=== PATIENT | male | born 1965 | race Caucasian/White ===

== ENCOUNTER 2022-11-07 06:32 | Outpatient (OUT) | payer OTHER, SELFPAY ==
[2022-11-10 19:07] LABS: Lacosamide 12.9 ug/mL (5.0-10.0)
== END 2022-11-07 06:33 | disposition home or self-care (01) ==
DX: G40.219 Localization-related (focal) (partial) symptomatic epilepsy and epileptic syndromes with complex partial seizures, intractable, without status epilepticus (principal)
CPT/HCPCS: 36415; 80235

== ENCOUNTER 2023-02-05 06:44 | Outpatient (OUT) | payer OTHER, SELFPAY ==
[2023-02-05 06:55] LABS: Basophils Absolute Auto 0.1 10^3/uL (0.0-0.1); Basophils Percent Auto 0.6 % (0.2-2.0); Eosinophils Absolute Auto 0.3 10^3/uL (0.0-0.7); Eosinophils Percent Auto 2.1 % (0.9-7.0); Hematocrit 44.7 % (42.0-54.0); Hemoglobin 14.5 g/dL (14.0-18.0); Immature Granulocytes Abs Auto 0.31 10^3/uL (0.00-0.03); Immature Granulocytes Pct Auto 2.5 % (0.0-0.5); Lymphocytes Absolute Auto 4.7 10^3/uL (1.2-3.8); Lymphocytes Percent Auto 37.9 % (20.5-60.0); Mean Corpuscular HGB Conc 32.4 g/dL (29.9-35.2); Mean Corpuscular Hemoglobin 30.9 pg (25.9-34.0); Mean Corpuscular Volume 95.1 fL (80.0-94.0); Mean Platelet Volume 8.9 fL (9.5-13.5); Monocytes Absolute Auto 1.2 10^3/uL (0.3-0.8); Monocytes Percent Auto 9.6 % (1.7-12.0); Neutrophils Absolute Auto 5.9 10^3/uL (1.4-6.5); Neutrophils Percent Auto 47.3 % (43.0-75.0); Platelet Count 272 10^3/uL (150-450); Red Cell Distribution Width 13.1 % (11.0-15.0); White Blood Count 12.5 10^3/uL (4.0-11.0)
[2023-02-05 07:52] LABS: Mono Screen NEGATIVE (NEGATIVE)
[2023-02-05 07:58] LABS: BUN Creatinine Ratio 23.5; Calcium 8.7 mg/dL (8.5-10.1); Carbon Dioxide 32.4 mmol/L (21.0-32.0); Chloride 102 mmol/L (98-107); Estimated GFR (African America >60 (>=60); Estimated GFR (Non-African Ame >60 (>=60); Glucose 91 mg/dL (74-106); Potassium 3.4 mmol/L (3.5-5.1); Sodium 142 mmol/L (136-145)
[2023-02-05 08:36] LABS: Thyroid Stimulating Hormone 2.236 uIU/mL (0.358-3.740)
== END 2023-02-05 06:45 | disposition home or self-care (01) ==
LOC: LAB 06:44
PROVIDERS: PCP Family Medicine; Visit Provider Family Medicine
DX: R53.83 Other fatigue (principal); I10 Essential (primary) hypertension
CPT/HCPCS: 36415; 80048; 84443; 85025; 86308

== ENCOUNTER 2023-10-16 09:23 | Emergency (ER) | payer OTHER, SELFPAY ==
[2023-10-16 09:28] VITALS: BP 161/90; PULSE 60; TEMP 36.6; O2SAT 97; BMI 30.4
--- NOTE | 2023-10-16 09:38 | CT_ITS ---
[address] [address] Patient Name: PARAMJIT ROMEO MRN: [id number] date: 1965 Sex: M Assigned Patient Location: ER Current Patient Location: [facility] Accession/Order Number: [id number] Exam Date: 10/16/2023 09:45 Report Date: 10/16/2023 10:14 At the request of: MONICA LANCASTER Procedure: CT lumbar spine wo con EXAMINATION: CT lumbar spine wo con HISTORY: Trauma ; fell off ladder 2 days ago COMPARISON: XR lumbar spine 05/18/2013 TECHNIQUE: Axial, Coronal, and Sagittal images were created without IV contrast. Dose reduction techniques were achieved by using automated exposure control and/or adjustment of mA and/or kV according to patient size and/or use of iterative reconstruction technique. FINDINGS: VERTEBRAL BODIES: Small anterior superior endplate corner fractures and slight irregularity of the superior endplate of T12, L2, and L3. FACET JOINTS: No disruption or abnormal widening. DISCS: Mild diffuse disc bulging at L1-2, L3 on 4. Moderate diffuse disc bulge L4-5 and L5-S1 resulting in moderate or greater foramen narrowing. CENTRAL CANAL: No evidence of hemorrhage. PARASPINAL AREA: No visible mass. CT/CT lumbar spine wo con IMPRESSION: 1. Suspect mild acute superior endplate compression fractures and nondisplaced anterior superior corner fractures involving T12, L2, and L3. Consider MRI for further evaluation. 2. Moderate degenerative disc disease of lower lumbar spine with multilevel moderate foramen narrowing and mild central canal narrowing. Electronically authenticated by: ROZ QUINTANILLA Date: 10/16/2023 10:14
--- NOTE | 2023-10-16 10:02 | ED.BACK1 ---
HPI HPI - Back Pain/Injury General Chief Complaint: Back Pain/Injury Stated Complaint: LOWER BACK PAIN/ FALL Time Seen by Provider: 10/16/23 09:38 Source: patient and family Mode of arrival: walk-in History of Present Illness HPI Narrative: This patient is here in the emergency room to be evaluated for back pain. He states he fell off a ladder 2 days ago. There is no loss of consciousness and that information can be confirmed. He did not hit his head or neck. He tried to tough it out but the pain is not getting better with IV fluid. He has not had previous back surgery or severe back problems. 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 He does not have any loss of bowel or bladder function. He does not have any radiation tingling numbness or weakness to the extremities. He is not any blood in his urine. He does not have any abdominal pain. The pain is in the mid lumbar area but it hurts when he takes a deep breath. He does not have any pain over his ribs or sternum area. No other injury to his upper or lower limbs. His cognition and mental status has been normal according to his . Related Data Home Medications ?Medication ?Instructions ?Recorded ?Confirmed clobazam 10 mg tablet mg 10/16/23 ibuprofen 800 mg tablet mg 10/16/23 lacosamide 150 mg tablet mg 10/16/23 lisinopril 20 tab 10/16/23 mg-hydrochlorothiazide 12.5 mg tablet montelukast 10 mg tablet mg 10/16/23 sertraline 50 mg tablet mg 10/16/23 Allergies Allergy/AdvReac Type Severity Reaction Status Date / Time Penicillins AdvReac Severe Hives Verified 10/16/23 09:31 Opioid HPI Opioid Management Most Recent Opioid Data: No Data to Display Exam Narrative Exam Narrative: Awake alert sitting on side the bed propping and bracing himself. Appears to be uncomfortable. Examination of the back there is no abrasions contusions or apparent injury. His pain is in the midline of the L2-L4 area. There is no ecchymosis or hematomas noted. His lungs were clear with no wheeze rales or rhonchi. There is no tenderness to palpation of the rib area. Head and neck examination shows no evidence of trauma or injury. There is no restriction of motion. Neurological examination shows good strength in the lower limbs with no restriction of motion. There is no sensory loss by history. Constitutional Vital Signs, click to edit/add: Last Vital Signs Temp 98 F 10/16/23 09:28 Pulse 60 10/16/23 09:28 Resp 18 10/16/23 09:28 BP 161/90 H 10/16/23 09:28 Pulse Ox 97 10/16/23 09:28 Course Vital Signs Vital signs: Vital Signs Temperature 98 F 10/16/23 09:28 Pulse Rate 60 10/16/23 09:28 Respiratory Rate 18 10/16/23 09:28 Blood Pressure 161/90 H 10/16/23 09:28 Pulse Oximetry 97 10/16/23 09:28 Temperature 98 F 10/16/23 09:28 Pulse Rate 60 10/16/23 09:28 Respiratory Rate 18 10/16/23 09:28 Blood Pressure 161/90 H 10/16/23 09:28 Pulse Oximetry 97 10/16/23 09:28 MDM - Back Pain/Injury MDM Narrative Medical decision making narrative: This patient's CT scan disclosed a small endplate fractures of T12 L2 and L3. His neurological examination is normal. I have reached out to his primary care doctor, Dr. Cook, he will make referral to orthopedic spine surgeon here in the community. He will be given analgesics. He will be excused from work for 1 week. He was told to use laxatives for constipation that may ensue. Discharge Plan Discharge Stand Alone Forms: Portal Instructions Chief Complaint: Back Pain/Injury Clinical Impression: Fracture of lumbar spine Patient Disposition: Home, Self-Care Time of Disposition Decision: 10:54 Prescriptions / Home Meds: No Action lisinopril-hydrochlorothiazide 20-12.5 mg tablet ibuprofen 800 mg tablet montelukast 10 mg tablet sertraline 50 mg tablet lacosamide 150 mg tablet clobazam 10 mg tablet Print Language: Jamaican Additional Instructions: Percocet/Toradol/follow-up with Dr. Hammond, off work next week Referrals: Yessenia Brannon MD [Primary Care Provider] - 1 week
== END 2023-10-16 11:04 | disposition home or self-care (01) ==
PROVIDERS: Emergency Provider Emergency Medicine Emergency Medical Services; PCP Family Medicine
DX: S22.089A Unspecified fracture of T11-T12 vertebra, initial encounter for closed fracture (principal); S32.029A Unspecified fracture of second lumbar vertebra, initial encounter for closed fracture; S32.039A Unspecified fracture of third lumbar vertebra, initial encounter for closed fracture; W11.XXXA Fall on and from ladder, initial encounter
CPT/HCPCS: 72131; 99284

== ENCOUNTER 2023-10-29 07:24 | Outpatient (OUT) | payer OTHER, SELFPAY ==
--- OUTSIDE RECORDS SUMMARY | 2023-10-29 07:28 | XMS_ITS | CCD ---
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 Role Phone House Sr., Charles Lynne Primary Care Provider Rosemarie Quintero Unavailable Víctor Selby Unavailable House Sr., Charles Lynne Primary Care Provider JAMMIE, DR HUGHES Primary Care Unavailable MISC, DR LUU Attending Unavailable MISC, DR LUU Consulting Unavailable MISC, DR LUU Admitting Unavailable HOUSE, DR HUGHES Primary Care Unavailable MISC, DR LUU Admitting Unavailable MISC, DR LUU Attending Unavailable MISC, DR LUU Consulting Unavailable HOUSE, DR HUGHES Primary Care Unavailable MISC, DR LUU Attending Unavailable MISC, DR LUU Consulting Unavailable MISC, DR LUU Admitting Unavailable HOUSE, DR HUGHES Primary Care Unavailable PAY, DR GUZMAN Consulting Unavailable PAY, DR GUZMAN Admitting Unavailable PAY, DR GUZMAN Attending Unavailable YAROSH, RENARD Consulting Unavailable HOUSE, DR HUGHES Admitting Unavailable HOUSE, DR HUGHES Attending Unavailable HOUSE, DR HUGHES Primary Care Unavailable HOUSE, DR HUGHES Primary Care Unavailable MISC, DR LUU Attending Unavailable MISC, DR LUU Consulting Unavailable MISC, DR LUU Admitting Unavailable House Sr., Charles Lynne Primary Care Provider Víctor Anne Unavailable DO Charles Agudelo Primary Care Provider MD Víctor Anne Attending Provider NON STAFF Attending Provider Unavailable House Sr., Charles Lynne Primary Care Provider DO Charles Agudelo Primary Care Provider [phone] MD Víctor Anne Attending Provider CASS Alatorre Attending Provider DO Charles Agudelo Primary Care Provider [phone] CASS Alatorre Attending Provider Olesya Davis Unavailable Yessenia Brannon Unavailable House Sr., Charles LIPSCOMB Primary Care Prov ider MD Víctor Anne Attending Provider MD Yessenia Brannon Primary Care Provider HOUSE SR, P Primary Care Unavailable FESLER, LYNDA Referring Unavailable ZAK MERCADO Attending Unavailable HOUSE SR, P Primary Care Unavailable FESLER, LYNDA Referring Unavailable TORCASICHAU Lizama Attending Unavailable HOUSE SR, P Primary Care Unavailable HOUSE SR, P Primary Care Unavailable FESKARINA, LYNDA Referring Unavailable LYNDA HUFF Attending Unavailable HOUSE SR, P Primary Care Unavailable CHAU TAVERAS Attending Unavailable FESLERLYNDA Attending Unavailable HOUSE SR, P Primary Care Unavailable SELF Referring Unavailable HOUSE SR, P Primary Care Unavailable FESLER, LYNDA Referring Unavailable EDUARDOCACHAU COX Attending Unavailable FESLERLYNDA Attending Unavailable HOUSE SR, P Primary Care Unavailable MD Yessenia Branonn Primary Care Provider MD Víctor Anne Attending Provider [phone] MD Yessenia Brannon Primary Care Provider MD Víctor Anne Attending Provider [phone] Víctor Anne Attending Unavailable Yessenia Brannon Primary Care Unavailable Omid, Víctor Admitting Unavailable Omid, Víctor Attending Unavailable Yessenia Brannon Primary Care Unavailable Oleyina, Víctor Admitting Unavailable Yessenia Brannon Primary Care Unavailable Omid, Víctor Admitting Unavailable Omid, Víctor Attending Unavailable Cristy Alatorre Admitting Unavailable Cristy Alatorre Attending Unavailable Jammie, Primary Care Unavailable MINNA CONTRERAS Attending Unavailable MINNA CONTRERAS Referring Unavailable Allergies Allergy Classification Reported Allergen(s) Allergy Type Date of Onset Reaction(s) Facility Penicillins (antibiotic) (2 sources) Penicillin G Benzathine Drug Allergy 4 Unknown Reaction, [facility] (20 sources) Seasonal allergy; Translations: [SEASONAL ALLERGIES] Allergy to substance 9 Cough [facility] (14 sources) Penicillins; Translations: [PENICILLINS] Drug Allergy 2 Unknown [facility] (12 sources) Penicillin; Translations: [penicillin] Drug Allergy hives [facility] (20 sources) Penicillin G Benzathine; Translations: [penicillin G benzathine] Drug allergy 4 Unknown, Unknown Reaction [facility] (20 sources) Penicillins Drug Allergy 2 Unknown [facility] (1 source) Penicillins Drug allergy (disorder) 4 [facility] Repository Medications Current Medications Medication Drug Class(es) Dates Sig (Normalized) Sig (Original) [id number] 200 actuat albuterol 0.09 mg/actuat metered dose inhaler (2 sources) beta2-Adrenergic Agonist Start: 06-24-2021 Albuterol Sulfate Active 2 INH INHALATION Q6H June 23, 2021 11:00pm administer with spacer azithromycin 250 mg oral tablet (2 sources) Macrolide Antimicrobial Start: 02-11-2023 Azithromycin 250 MG as directed Orally 2 tabs po today, then 1 tab daily x 4 more days for Jan, Active Start: 01-29-2023 Azithromycin 2 50 MG Take 2 tablets on first day then 1 tablet daily for 4 days Orally as directed for Dec, Active cloBAZam 10 mg oral tablet (20 sources) Benzodiazepine Start: 10-03-2021 End: 11-07-2023 take 10 mg by mouth once daily at bedtime Clobazam Active 10 MG PO Daily at bedtime January 28, 2022 1:00am Start: 07-20-2021 End: 07-20-2025 take 0.5 tablet by mouth twice daily cloBAZam (ONFI) 10 mg tab tablet Indications: Nonintractable epilepsy with status epilepticus, unspecified epilepsy type (HCC) 0.5 tablets by ORAL/FEEDING TUBE route twice daily. 30 tablet 5 07/20/2021 10/03/2021 Discontinued Comment on above: 0.5 tablets by ORAL/ FEEDING TUBE route twice daily. Take 1 tablet by juan th daily at bedtime for 180 days. dextromethorphan hydrobromide 1.5 mg/ml / pyrilamine maleate 1.5 mg/ml oral solution (1 source) Uncompetitive C-rgmgdv-I-aspartate Receptor Antagonist, Sigma-1 Agonist Start: 03-13-19 take 20 mL by mouth every six hours [place] DM 7.5-7.5 MG/5ML 20 ml Orally every 6 hours for 2 days Mar, Active fluticasone propionate 0.05 mg/actuat metered dose nasal spray (3 sources) Corticosteroid Start: 03-13-19 take 1 spray(s) nasal route twice daily Fluticasone Propionate 50 MCG/ACT 1 spray in each nostril Nasally Twice a day for 14 days Mar, Active Flonase Sensimis t 27.5 MCG/SPRAY 2 sprays (1 spray in each nostril) Nasally Once a day for 30 days Active lacosamide 150 mg oral tablet (20 sources) Anti-epileptic Agent Start: 07-07-2022 End: 11-07-2023 take 2 tablets by mouth twice daily lacosamide (VIMPAT) 150 mg tab Indications: Nonintractable epilepsy with status epilepticus, unspecified epilepsy type (HCC) Take 2 tablets by mouth two times a day for 180 days. 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 270 tablet 1 02/27/2022 08/26/2022 Active Start: 01-30-2022 End: 07-29-2022 take 3 tablets by mouth twice daily lacosamide (VIMPAT) 100 mg tab Indications: Nonintractable epilepsy with status epilepticus, unspecified epilepsy type (HCC) Take 3 tablets by mouth twice daily for 180 days. 180 tablet 5 01/30/2022 07/29/2022 Active Start: 06-05-2021 End: 03-05-2022 VIMPAT 200 mg Indications: Nonintractable epilepsy with status epilepticus, unspecified epilepsy type (HCC) TAKE 1 AND 1/2 TABLETS BY MOUTH TWICE A DAY 270 tablet 1 09/06/2021 01/30/2022 Discontinued Start: 04-24-2018 End: 06-24-2021 take 1 tablet by mouth twice daily Lacosamide (Vimpat) 100 mg tablet Active 300 MG PO Twice daily June 24, 2021 2:09pm Start: 04-22-2018 End: 04-24-2018 take 1 tablet by mouth twice daily Lacosamide (Vimpat) 50 mg tablet Discontinued 50 MG PO Twice daily April 22, 2018 1:00am April 24, 2018 12:22pm take 1 tablet by juan every twelve hours Lacosamide 200 MG 1 tablet Orally Twice a day Active Comment on above: TAKE 1 AND 1/2 TABLE TS BY MOUTH TWICE A DAY Take 3 tablets by mo ut twice daily for 180 days. Take 1.5 tablets by mouth twice daily for 180 days. Take 2 tablets by mo ut twice daily for 180 days. Take 2 tablets by mo ut two times a day for 180 days. methylPREDNISolone 4 mg oral tablet (3 sources) Corticosteroid Start: 023 Medrol 4 MG as directed Orally as directed for 6 days Dec, Active montelukast 10 mg oral tablet (20 sources) Leukotriene Receptor Antagonist Start: 024 take 1 tablet by mouth once daily Montelukast Active 0 .ROUTE .COMPLEX October 05, 2023 9:41am take 1 tablet by mouth once daily Start: 2017 End: 10-05-2023 take 1 tablet by mouth once daily Montelukast (Singulair) 10 mg tablet Discontinued 10 MG PO Daily July 15, 2023 8:37am October 05, 2023 9:42am Comment on above: Take 10 mg by mouth once daily. omeprazole 40 mg delayed release oral capsule (2 sources) Proton Pump Inhibitor take 1 capsule by mouth once daily Omeprazole 40 MG 1 capsule 30 minutes before morning meal Orally Once a day for 15 days Active paxlovid (300/100) 20 x 150 mg & 10 x 100mg tablet therapy pack (1 source) Paxlovid (300/10 0) 20 x 150 MG & 10 x 100MG as directed Orally daily for 5 days Active sertraline 50 mg oral tablet (17 sources) Serotonin Reuptake Inhibitor Start: 08-09-2023 End: 10-02-2023 take 50 mg by mouth once daily Sertraline Active 50 MG PO Daily October 02, 2023 11:14am Start: 01-01-2023 End: 06-30-2023 take 1 tablet by mouth once daily sertraline (ZOLOFT) 50 mg tablet Take 1 tablet by mouth once daily. 90 tablet 0 04/01/2023 06/30/2023 Active Start: 09-15-2022 End: 12-14-2022 take 1 tablet by mouth once daily sertraline (ZOLOFT) 50 mg tablet Take 1 tablet by mouth once daily. 90 tablet 0 09/15/2022 12/14/2022 Active Comment on above: Take 1 tablet by juan once daily. Completed/Discontinued Medications Medication Drug Class(es) Dates Sig (Normalized) Sig (Original) cholecalciferol 0.025 mg oral tablet (14 sources) Vitamin D Start: 05-17-2018 End: 06-24-2021 take 1 tablet by mouth once daily Cholecalciferol (Vitamin D3) (Vitamin D3) 1,000 unit Tablet Discontinued 1000 UNIT PO Daily May 17, 2018 12:00am June 24, 2021 2:09pm ciprofloxacin 500 mg oral tablet (4 sources) Quinolone Antimicrobial Start: 02-11-2022 take 1 tablet by mouth every twelve hours Cipro 500 MG 1 tablet Orally every 12 hrs for 2 days Jan, Not-Taking clindamycin 300 mg oral capsule (14 sources) Lincosamide Antibacterial Start: 04-24-2018 End: 05-17-2018 take 300 mg by mouth every eight hours Clindamycin Hcl Discontinued 300 MG PO Q8H April 24, 2018 1:00am May 17, 2018 8:22am clonazePAM 0.5 mg disintegrating oral tablet (20 sources) Benzodiazepine Start: 02-14-2019 clonazePAM orally disintegrating (KLONOPIN WAFER) 0.5 mg disintegrating tablet Indications: Nonintractable epilepsy with status epilepticus, unspecified epilepsy type (HCC) Take 1 tablet as needed for prolonged seizure or cluster of seizures. Do not exceed more than 2 tablets per day. 10 tablet 0 02/14/2019 Active Comment on above: Take 1 tablet as nee ded for prolonged seizure or cluster of seizures. Do not exceed more than 2 tablets per day. COMPOUNDED PRESCRIPTION (9 sources) Start: 08-02-2018 End: 09-03-2021 COMPOUNDED PRESCRIPTION Embrace 2 watch. 1 Device 0 08/02/2018 09/03/2021 Discontinued Start: 08-02-2018 COMPOUNDED PRE SCRIPTION Embrace 2 watch. 1 Device 0 08/02/2018 Active Comment on above: Embrace 2 watch. 24 hr dilTIAZem hydrochloride 240 mg extended release oral capsule (20 sources) Calcium Channel Missy Start: 9 End: 9 take 1 capsule by mouth once daily Diltiazem Hcl (Cartia Xt) 240 mg capsule,extended release 24hr Discontinued 1 CAP PO Daily April 23, 2018 1:00am April 23, 2018 11:04am Start: 2017 End: 04-24-2018 take 2 tablets by mouth once daily Diltiazem Hcl (Cardizem) 120 mg Tablet Discontinued 240 MG PO Daily 2017 12:00am April 24, 2018 12:22pm doxycycline hyclate 100 mg oral capsule (3 sources) Tetracycline-class Drug Start: 09-23-2023 End: 10-12-2023 take 100 mg by mouth twice daily Doxycycline Hyclate Discontinued 100 MG PO Twice daily 19 12September 23, 2023 12:00am October 12, 2023 9:40am hydroCHLOROthiazide 12.5 mg / lisinopril 20 mg oral tablet (20 sources) Thiazide Diuretic, Angiotensin Converting Enzyme Inhibitor Start: 04-23-2018 End: 04-23-2018 Lisinopril-[place] chlorothiazide Discontinued TABLET April 23, 2018 1:00am April 23, 2018 11:04am Start: 2017 End: 07-15-2023 take 0.5 tablet by mouth once daily Lisinopril-Hydrochlorothiazide Active 0. 5 TAB PO Daily July 15, 2023 8:37am Comment on above: Take 0.5 tablets by mouth once daily. Take a half tablet of 20-12.5 daily ibuprofen 800 mg oral tablet (10 sources) Nonsteroidal Anti-inflammatory Drug Start: End: take 800 mg by mouth every eight hours at mealtime Ibuprofen Discontinued 800 MG PO Every 8 hours June 23, 2023 12:00am August 09, 2023 1:34pm take with food levETIRAcetam 500 mg oral tablet (14 sources) Start: End: take 500 mg by mouth twice daily Levetiracetam Discontinued 500 MG PO Twice daily 60 December 30, 2017 12:00am April 23, 2018 11:01am levoFLOXacin 750 mg oral tablet (14 sources) Quinolone Antimicrobial Start: End: take 1 tablet by mouth once daily Levofloxacin (Levaquin) 750 mg tablet Discontinued 750 MG PO Daily 4 April 24, 2018 1:00am April 28, 2018 1:02am lisinopril 10 mg oral tablet (9 sources) Angiotensin Converting Enzyme Inhibitor take 1 tablet by mouth every twenty-four hours Lisinopril 10 MG 1 tablet Orally Once a day Not-Taking predniSONE 20 mg oral tablet (14 sources) Start: End: take 60 mg by mouth once daily at mealtime Prednisone Discontinued 60 MG PO Daily June 24, 2021 12:00am January 28, 2022 10:47am administer with food or milk Triamcinolone (18 sources) Corticosteroid Start: Kenalog -40 mg Sep, 40 mg Start: 06-19-2020 Kenalog -40 mg May, 40 mg 24 hr divalproex sodium 250 mg extended release oral tablet (20 sources) Mood Stabilizer, Anti-epileptic Agent Start: 07-20-2021 End: 10-03-2021 take 3 tablets by mouth twice daily divalproex ER (DEPAKOTE ER) 250 mg 24 hr tablet Indications: Nonintractable epilepsy with status epilepticus, unspecified epilepsy type (HCC) Take 3 tablets by mouth twice daily. 450 tablet 1 07/20/2021 10/03/2021 Discontinued Start: 06-24-2021 End: 01-30-2022 take 750 mg by mouth once daily at bedtime Divalproex Discontinued 750 MG PO Daily at bedtime June 24, 2021 12:00am January 28, 2022 10:47am Start: 01-16-2021 End: 08-09-2023 take 500 mg by mouth once daily in the evening Divalproex Discontinued 500 MG PO Every evening June 24, 2021 12:00am August 09, 2023 1:34pm take 1 tablet by juan th every twenty-four hours Divalproex Sodium 250 MG 1 capsule Orally QD Not-Taking take 1 tablet by juan th every twenty-four hours Depakote ER 500 MG 1 tablet Orally Once a day Active Comment on above: Take 2 tablets by mo uth every morning AND 3 tablets every evening. take 2 tablets by mo uth every morning and 3 tablets every evening Take 3 tablets by mo uth twice daily. Take 3 tablets by mo uth twice daily. Dose increase. Fill this RX when patient due for refill. Thanks. Take 2 tablets by mo uth every morning AND 2 tablets every evening. Take 2 tablets by mo uth every evening. Problems Active Problems Problem Classification Problem Date Documented Date Episodic/Chronic Acute bronchitis (1 source) Acute bronchitis, unspecified Episodic Adjustment disorders (20 sources) Adjustment disorder with depressed mood; Translations: [Adjustment disorder with depressed mood] Onset: 07-30-2018 08-02-2018 Chronic Aspiration pneumonitis; food/vomitus (14 sources) Aspiration pneumonia; Translations: [Pneumonitis due to inhalation of food and vomit] 04-21-2018 Episodic Asthma (10 sources) Asthma; Translations: [Unspecified asthma, uncomplicated] 06-18-2023 Chronic Bacterial infection; unspecified site (1 source) Other specified bacterial agents as the cause of diseases classified elsewhere Episodic Chronic obstructive pulmonary disease and bronchiectasis (14 sources) Bronchitis; Translations: [Bronchitis, not specified as acute or chronic] 06-24-2021 Episodic Complications of surgical procedures or medical care (4 sources) Drug therapy finding; Translations: [Unspecified adverse effect of drug or medicament, initial encounter] Episodic Deficiency and other anemia (10 sources) Anemia; Translations: [Anemia, unspecified] 06-18-2023 Episodic Developmental disorders (1 source) Language difficulty; Translations: [Developmental disorder of speech and language, unspecified] Chronic Disorders of lipid metabolism (20 sources) Hyperlipidemia; Translations: [Hyperlipidemia, unspecified] 2017 Chronic E Codes: Natural/environment (1 source) Exposure to other specified factors, initial encounter; Translations: [EXPOSURE OTHER SPEC FACTORS INITIAL] Onset: 10-01-2021 Episodic Epilepsy; convulsions (20 sources) Status epilepticus; Translations: [Epilepsy, unspecified, not intractable, with status epilepticus] Onset: 07-30-2018 Chronic Epilepsy; convulsions (20 sources) Seizure; Translations: [Unspecified convulsions] 04-21-2018 Episodic Esophageal disorders (13 sources) Gastric reflux; Translations: [Gastro-esophageal reflux disease without esophagitis] Chronic Essential hypertension (20 sources) Hypertensive disorder; Translations: [Essential (primary) hypertension] Onset: 07-30-2018 08-02-2018 Chronic Immunizations and screening for infectious disease (5 sources) Contact with and (suspected) exposure to other viral communicable diseases; Translations: [Encounter for immunization] Onset: 12-31-2020 Resolved: 03-13-2021 Episodic Malaise and fatigue (1 source) Other fatigue Episodic Mood disorders (1 source) Recurrent major depression in partial remission; Translations: [Major depressive disorder, recurrent, in partial remission] Chronic Mood disorders (1 source) Mood disorder with depressive features due to general medical condition; Translations: [Mood disorder due to known physiological condition with depressive features] Episodic Open wounds of extremities (1 source) Laceration of muscle, fascia and tendon of long head of biceps, left arm, subsequent encounter; Translations: [Laceration of muscle, fascia and tendon of long head of biceps, left arm, subsequent encounter] Onset: 07-20-2023 Episodic Open wounds of head; neck; and trunk (11 sources) Laceration - injury; Translations: [Laceration] 08-09-2023 Episodic Osteoarthritis (20 sources) Arthritis of left acromioclavicular joint; Translations: [Primary osteoarthritis, left shoulder] Chronic Other aftercare (1 source) Other assisted (current) drug therapy; Translations: [OTH LIABILITY CLAIMS REPRESENTATIVE CURRENT DRUG THERAPY] Onset: 10-01-2021 Episodic Other aftercare (4 sources) Surgical follow-up; Translations: [Encounter for removal of sutures] 08-19-2023 Episodic Other aftercare (4 sources) Encounter for removal of sutures; Translations: [Encounter for removal of sutures] 08-19-2023 Episodic Other connective tissue disease (1 source) Other enthesopathies, not elsewhere classified Episodic Other connective tissue disease (7 sources) Supraspinatus tear; Translations: [Unspecified rotator cuff tear or rupture of left shoulder, not specified as traumatic] Episodic Other connective tissue disease (3 sources) Unspecified rotator cuff tear or rupture of left shoulder, not specified as traumatic Episodic Other eye disorders (4 sources) Ocular pain, right eye; Translations: [OCULAR PAIN RIGHT EYE] Onset: 09-27-2021 Episodic Other fractures (1 source) Compression fracture ; Translations: [Compression fracture] 10-19-2023 Episodic Other fractures (1 source) Compression fracture of lumbar spine; Translations: [Wedge compression fracture of unspecified lumbar vertebra, initial encounter for closed fracture] 10-19-2023 Episodic Other hereditary and degenerative nervous system conditions (1 source) Medication-induced postural tremor; Translations: [Drug-induced tremor] Chronic Other nervous system disorders (20 sources) Other symptoms and signs involving cognitive functions and awareness; Translations: [Memory loss] Onset: 10-03-2021 Episodic Other non-traumatic joint disorders (8 sources) Derangement of left shoulder joint; Translations: [Other specific joint derangements of left shoulder, not elsewhere classified] Chronic Other non-traumatic joint disorders (1 source) Other specific joint derangements of left shoulder, not elsewhere classified Chronic Other non-traumatic joint disorders (10 sources) Derangement of right shoulder joint; Translations: [Other specific joint derangements of right shoulder, not elsewhere classified] 06-23-2023 Chronic Other non-traumatic joint disorders (7 sources) Other specific joint derangements of right shoulder, not elsewhere classified; Translations: [Other specified disorders of joint, shoulder region] Onset: 07-02-2023 06-23-2023 Chronic Other non-traumatic joint disorders (2 sources) Pain in left shoulder Episodic Other screening for suspected conditions (not mental disorders or infectious disease) (14 sources) Patient encounter status; Translations: [Encounter for screening for malignant neoplasm of colon] 05-17-2018 Episodic Other upper respiratory infections (3 sources) Acute sinusitis, unspecified; Translations: [Viral upper respiratory tract infection] Episodic Otitis media and related conditions (1 source) Unspecified Eustachian tube disorder, bilateral Episodic Residual codes; unclassified (20 sources) Obstructive sleep apnea syndrome; Translations: [Obstructive sleep apnea (adult) (pediatric)] Onset: 07-30-2018 08-02-2018 Chronic Residual codes; unclassified (1 source) Amnesia; Translations: [Other amnesia] Episodic Residual codes; unclassified (1 source) At risk of polypharmacy; Translations: [Other specified personal risk factors, not elsewhere classified] Episodic Residual codes; unclassified (3 sources) Other specified postprocedural states Episodic Respiratory failure; insufficiency; arrest (adult) (14 sources) Respiratory failure; Translations: [Respiratory failure, unspecified, unspecified whether with hypoxia or hypercapnia] 04-21-2018 Episodic Skin and subcutaneous tissue infections (6 sources) Cellulitis of leg, excluding foot; Translations: [Cellulitis of right lower limb] 09-23-2023 Episodic Spondylosis; intervertebral disc disorders; other back problems (10 sources) Lumbar arthritis; Translations: [Spondylosis without myelopathy or radiculopathy, lumbar region] 06-18-2023 Chronic Sprains and strains (12 sources) Rupture of tendon of biceps, long head; Translations: [Strain of muscle, fascia and tendon of long head of biceps, left arm, initial encounter] 07-07-2023 Episodic Substance-related disorders (20 sources) Tobacco user; Translations: [Nicotine dependence, unspecified, uncomplicated] Onset: 07-30-2018 08-02-2018 Chronic Superficial injury; contusion (1 source) Injury of conjunctiva and corneal abrasion without foreign body, right eye, initial encounter; Translations: [INJ CONJ AND CA W/O FB RT EYE INITIAL] Onset: 10-01-2021 Episodic Unclassified (1 source) APPOINTMENT CANCELLED Unclassified (1 source) CONTACT W/AND (SUSP) EXPOS COVID-19; Translations: [CONTACT W/AND (SUSP) EXPOS COVID-19] Onset: 07-19-2021 Past or Other Problems Problem Classification Problem Date Documented Da te Episodic/Chronic Other nervous system disorders (1 source) Tremor, unspecified Onset: 06-24-2021 Resolved: 06-24-2021 Episodic Other nervous system disorders (20 sources) H/O: epilepsy; Translations: [Personal history of other diseases of the nervous system and sense organs] Onset: 10-03-2021 Episodic Other nervous system disorders (19 sources) Tremor; Translations: [Tremor, unspecified] Onset: 11-21-2021 11-21-2021 Episodic Other non-traumatic joint disorders (1 source) Pain in right shoulder; Translations: [Pain in right shoulder] Onset: 06-23-2023 Episodic Residual codes; unclassified (1 source) Unspecified symptoms and signs involving cognitive functions and awareness; Translations: [Cognitive complaints] Onset: 12-15-2022 Episodic Unclassified (1 source) Cough R05.9 Onset: 06-24-2021 Resolved: 06-24-2021 Viral infection (2 sources) COVID-19 Onset: 03-13-2021 Resolved: 03-13-2021 Results Test Name Value Interpretation Reference Range Facility Influenza virus A and B and SARS-CoV-2 (COVID-19) RNA panel - Respiratory system specon 10-12-2023 Influenza virus A and B RNA and SARS-CoV-2 (COVID-19) N gene panel VALENCIA+probe (Resp) Negative [facility] Laboratory - Microbiology an d Antimicrobial susceptibilityon 10-12-2023 SARS-CoV-2 (COVID-19) RNA VALENCIA+probe Ql (Unsp spec) Negative [facility] No Panel Informationon 10-11 POC Influenza B (VALENCIA) Negative [facility] CNPNon 07-03-2023 CNPN Telephone (PSYRMN) PARAMJIT ROMEO JR. ([id number]) 1965 M Date Time Provider Department 07/03/23 CHAU TAVERAS PSYRMN During your visit today, we recorded the following information about you: Namita Wilson 07/03/2023 2:33 PM Signed Ed needs a refill of the following medication: sertraline (ZOLOFT) 50 mg tablet Take 1 tablet by mouth once daily. Last appt 06/28 Next appt 12/08 with [facility] Chau Taveras MD 07/03/2023 3:46 PM Signed Medication Refill Request Patient: Paramjit Romeo Jr. Patient called with request for refill on medications. The following approved medication requests have been transmitted electronically. Requested Prescriptions Signed Prescriptions Disp Refills sertraline (ZOLOFT) 50 mg tablet 90 tablet 0 Sig: Take 1 tablet by mouth once daily. Authorizing Provider: CHAU TAVERAS Future Appointments Date Time Provider Department Center 12/09/2023 4:00 PM Nan Armstrong MD PSYRMN Leah Taveras MD Psychiatry PGY-4 July 03, 2023 3:45 PM Allergies As of Date: 07/03/2023 Noted Allergy Reaction SEASONAL ALLERGIES 07/30/2018 3 - Cough Comments: Sneezing and Itchy, Watery Eyes PENICILLINS 07/18/2021 16 - Unknown Date Reviewed: 04/24/2022 Reviewed by: Junie Salcido - Fully Assessed Order(s):sertraline (ZOLOFT) 50 mg tabletTake 1 tablet by mouth once daily.Disp: 90 tabletRfl: 0 Prescriptions as of 07/03/2023 - sertraline (ZOLOFT) 50 mg tablet Take 1 tablet by mouth once daily. - lacosamide (VIMPAT) 150 mg tab Take 2 tablets by mouth two times a day for 180 days. - cloBAZam (ONFI) 10 mg tab tablet Take 1 tablet by mouth daily at bedtime for 180 days. - clonazePAM orally disintegrating (KLONOPIN WAFER) 0.5 mg disintegrating tablet Take 1 tablet as needed for prolonged seizure or cluster of seizures. Do not exceed more than 2 tablets per day. - montelukast (SINGULAIR) 10 mg tablet Take 10 mg by mouth once daily. - lisinopril-hydrochlor othiazide (PRINZIDE,ZESTORETIC) 20-12.5 mg per tablet Take 0.5 tablets by mouth once daily. Take a half tablet of 20-12.5 daily Problem List As Of Date 07/03/2023 Noted Resolved Focal epilepsy with impairment of consciousness* 019 Hypertension [I10] 07/30/2018 Obstructive sleep apnea [G47.33] 07/30/2018 Tobacco use disorder [F17.200] 07/30/2018 Adjustment disorder with depressed mood [F43.21]07/30/2018 Subjective memory complaints [R41.89] 10/03/2021 12/15/2022 History of status epilepticus [Z86.69] 10/03/2021 Tremor [R25.1] 11/21/2021 12/15/2022 Prescriptions ordered this encounter Disp Refills Start End SERTRALINE 50 MG TABLET 90 t* 0 07/03/2023 10/01/2023 Route: ORAL Sig: Take 1 tablet by mouth once daily. Medications Discontinued During This Encounter Prescriptions - sertraline (ZOLOFT) 50 mg tablet (Discontinued) Take 1 tablet by mouth once daily. Encounter Status:Closed by CHAU TAVERAS on 07/03/23 Normal [facility] MR shoulder RT wo conon 05-0 MR shoulder RT wo con [facility] Main [place] [address] [place] [address] MRI Report Signed Patient: Paramjit Romeo MR#: [id number] 9 : 1965 Acct:[id number] Age/Sex: 57 / M ADM Date: 07/02/23 Loc: Room: Type: [facility] Attending Dr: Víctor Anne MD Copies to: Víctor Anne MD Ordering Provider: Víctor Anne MD Date of Service: 07/02/23 MR/MR shoulder RT wo con: M24.811 - Other specific joint derangements of right shou... MRI right Shoulder without contrast TECHNIQUE: Multiplanar T1 and T2-weighted imaging obtained without contrast. HISTORY: Injury one month ago. Popping sensation of the right shoulder. Continued right shoulder pain. Right shoulder surgery 11 years ago COMPARISON: Plain film right shoulder 06/23/2023 BONE MARROW EDEMA: None FRACTURE: None AC JOINT: Mild degeneration SHOULDER ROOF LIGAMENTS: The coracoacromial and coracoclavicular ligaments are intact. ROTATOR CUFF: Heterogeneous changes of the supraspinatus tendon near the insertion present. Consider tendinopathy versus partial tear. No retracted full-thickness tear. Mild tendinopathy of the infraspinatus tendon. Teres minor intact. Inflammatory changes superior to the subscapularis tendon which may represent the biceps antonio injury. Intact subscapularis tendon. ROTATOR CUFF INTERVAL: Unremarkable BURSAL FLUID: No subacromial subdeltoid bursal fluid identified. GLENOID: Chondromalacia of the inferior portion of the glenohumeral joint. BICEPS LABRAL COMPLEX: Intact LONG HEAD OF BICEPS TENDON: Absence of the tendon within the bicipital groove consistent with tear. GLENOHUMERAL LIGAMENTS: The superior glenohumeral ligament is intact. The middle glenohumeral ligament is intact. The anterior and posterior glenohumeral ligaments are intact. Thickening of the axillary pouch suggesting adhesive capsulitis. JOINT EFFUSION: Moderate joint effusion is seen. MUSCLES: Normal signal intensity of the muscles. NO SUBCUTANEOUS TISSUES: No subcutaneous abnormalities identified. MR/MR shoulder RT wo con IMPRESSION: Tendinosis/partial tear involving the supraspinatus tendon near the insertion. Minimal subacromial subdeltoid bursal fluid. Mild tendinopathy of the infraspinatus tendon. Complete tear of the long head of the biceps tendon. Impression dictated by: Tez Denton M.D.07/02/2023 2:06 PM Dictation Location: [place] [address] Transcribed By: [facility] 07/02/23 1406 Dictated By: Tez Denton DO 07/02/23 1356 Signed By: 07/02/23 1406 Normal [facility] XR shoulder RT min 2V*on XR shoulder RT min 2V* [facility] [address] [address] XRay Report Signed Patient: Paramjit Romeo MR#: [id number] 9 : 1965 Acct:[id number] Age/Sex: 57 / M ADM Date: 06/23/23 Loc: [facility] Room: Type: [facility] Attending Dr: Víctor Anne MD Copies to: Víctor Anne MD Ordering Provider: Víctor Anne MD Date of Service: 06/23/23 XR/XR shoulder RT min 2V*: M25.511 - Pain in right shoulder RIGHT SHOULDER - 4 views CLINICAL HISTORY: Right generalized shoulder pain for the past few weeks after lifting heavy item. Decreased range of motion. Previous rotator cuff repair. COMPARISON: Chest x-ray 06/24/2021 AP, Y, axillary and Grashey views were obtained. And anchor pin is present at the humeral head. There is no acute fracture or dislocation. Mild degenerative changes are present at the greater tuberosity. There is minimal hypertrophy at the acromioclavicular and inferior glenohumeral joints. Serpiginous lucency at the proximal humeral shaft was also seen previously. There are no significant soft tissue abnormalities. XR/XR shoulder RT min 2V* IMPRESSION: POSTOPERATIVE AND MILD DEGENERATIVE CHANGES. NO ACUTE BONY FINDINGS. Impression dictated by: Evelina Gorman M.D.06/23/2023 12:22 PM Dictation Location: [place] [address] Transcribed By: [facility] 06/23/23 1222 Dictated By: Evelina Gorman MD 06/23/23 1218 Signed By: 06/23/23 1222 Normal [facility] CNPN Telephone (NE50MN) PARAMJIT ROMEO JR. ([id number]) 1965 M Date Time Provider Department 05/29/23 DELLA IZAGUIRRE NE50MN During your visit today, we recorded the following information about you: Della Izaguirre Research [place] 05/29/2023 11:31 AM Signed IRB [id number]. Cognitive Enhancement Intervention for Creating a Healthy L.I.F.E (Lifestyle Interventions for Epilepsy) Grain Shipper: Zak Mercado, PhD, Inner Tube Inserter: Jack Torre and Email: [email or web address] Patient: Paramjit Romeo Jr. : 1965 Called to further discuss the study. Paramjit Romeo Jr. could not talk at this time and asked research coordinator to call back another day to talk about the study. Jack Torre will follow up later this week. Jack Torre Allergies As of Date: 05/29/2023 Noted Allergy Reaction SEASONAL ALLERGIES 07/30/2018 3 - Cough Comments: Sneezing and Itchy, Watery Eyes PENICILLINS 07/18/2021 16 - Unknown Date Reviewed: 04/24/2022 Reviewed by: Junie Salcido - Fully Assessed Reason for Visit: Research [293] Cmt: IRB [id number] Prescriptions as of 05/29/2023 - lacosamide (VIMPAT) 150 mg tab Take 2 tablets by mouth two times a day for 180 days. - cloBAZam (ONFI) 10 mg tab tablet Take 1 tablet by mouth daily at bedtime for 180 days. - sertraline (ZOLOFT) 50 mg tablet Take 1 tablet by mouth once daily. - clonazePAM orally disintegrating (KLONOPIN WAFER) 0.5 mg disintegrating tablet Take 1 tablet as needed for prolonged seizure or cluster of seizures. Do not exceed more than 2 tablets per day. - montelukast (SINGULAIR) 10 mg tablet Take 10 mg by mouth once daily. - lisinopril-hydrochlor othiazide (PRINZIDE,ZESTORETIC) 20-12.5 mg per tablet Take 0.5 tablets by mouth once daily. Take a half tablet of 20-12.5 daily Problem List As Of Date 05/29/2023 Noted Resolved Focal epilepsy with impairment of consciousness* 019 Hypertension [I10] 07/30/2018 Obstructive sleep apnea [G47.33] 07/30/2018 Tobacco use disorder [F17.200] 07/30/2018 Adjustment disorder with depressed mood [F43.21]07/30/2018 Subjective memory complaints [R41.89] 10/03/2021 12/15/2022 History of status epilepticus [Z86.69] 10/03/2021 Tremor [R25.1] 11/21/2021 12/15/2022 Encounter Status:Closed by DELLA IZAGUIRRE on 05/29/23 [facility] Fabiana 02-18-2023 [place] Telephone (NE50MN) PARAMJIT ROMEO JR. ([id number]) 1965 M Date Time Provider Department 02/18/23 LYNDA HUFF NE50MN During your visit today, we recorded the following information about you: Sania Pedraza 02/18/2023 11:27 AM Signed Form received: From (agency / facility / parent): [facility] salesperson neckties (if given): Paramjit Romeo Jr. Phone #: [phone] (home) Fax # : [phone] Email: Information requested: recommendation for comprehensive medication review Patient of Aleksandra Watson RN 02/18/2023 12:31 PM Signed Completed form returned to [facility] via Docu-Sign Copy to Onbase Aleksandra Bowen RN Allergies As of Date: 02/18/2023 Noted Allergy Reaction SEASONAL ALLERGIES 07/30/2018 3 - Cough Comments: Sneezing and Itchy, Watery Eyes PENICILLINS 07/18/2021 16 - Unknown Date Reviewed: 04/24/2022 Reviewed by: Junie Salcido - Fully Assessed Reason for Visit: Forms [913] Cmt: [facility] Prescriptions as of 02/18/2023 - sertraline (ZOLOFT) 50 mg tablet Take 1 tablet by mouth once daily. - lacosamide (VIMPAT) 150 mg tab Take 2 tablets by mouth two times a day for 180 days. - cloBAZam (ONFI) 10 mg tab tablet Take 1 tablet by mouth daily at bedtime for 180 days. - clonazePAM orally disintegrating (KLONOPIN WAFER) 0.5 mg disintegrating tablet Take 1 tablet as needed for prolonged seizure or cluster of seizures. Do not exceed more than 2 tablets per day. - montelukast (SINGULAIR) 10 mg tablet Take 10 mg by mouth once daily. - lisinopril-hydrochlor othiazide (PRINZIDE,ZESTORETIC) 20-12.5 mg per tablet Take 0.5 tablets by mouth once daily. Take a half tablet of 20-12.5 daily Problem List As Of Date 02/18/2023 Noted Resolved Focal epilepsy with impairment of consciousness* 019 Hypertension [I10] 07/30/2018 Obstructive sleep apnea [G47.33] 07/30/2018 Tobacco use disorder [F17.200] 07/30/2018 Adjustment disorder with depressed mood [F43.21]07/30/2018 Subjective memory complaints [R41.89] 10/03/2021 12/15/2022 History of status epilepticus [Z86.69] 10/03/2021 Tremor [R25.1] 11/21/2021 12/15/2022 Encounter Status:Closed by ALEKSANDRA BOWEN on 02/18/23 [facility]NE[facility] PARAMJIT ROMEO JR. ([id number]) 1965 M Date Time Provider Department 11/11/22 LYNDA HUFF NE50MN During your visit today, we recorded the following information about you: Shannon Little 11/11/2022 11:32 AM Signed OUTSIDE LAB REPORT FACILITY NAME [facility] PHONE/FAX [phone] COLLECTION DATE AND TIME: 11/07/2022 0642 Uploaded to Epic Aleksandra Bowen RN 11/11/2022 12:10 PM Signed Lab collected per Dr. Huff's recommendation Current ASM: LCM 300 mg BID CLB 10 mg @ HS Mychart to patient EDNA Welsh Elizabeth, RN 11/12/2022 12:30 PM Signed Per patient/spouse will review/discuss w/Dr Huff during VV of 12/15/2022 Aleksandra Bowen RN Allergies As of Date: 11/11/2022 Noted Allergy Reaction SEASONAL ALLERGIES 07/30/2018 3 - Cough Comments: Sneezing and Itchy, Watery Eyes PENICILLINS 07/18/2021 16 - Unknown Date Reviewed: 04/24/2022 Reviewed by: Junie Salcido - Fully Assessed Reason for Visit: Outside Labs Results [437] Cmt: [facility] Prescriptions as of 11/12/2022 - sertraline (ZOLOFT) 50 mg tablet Take 1 tablet by mouth once daily. - lacosamide (VIMPAT) 150 mg tab Take 2 tablets by mouth twice daily for 180 days. - cloBAZam (ONFI) 10 mg tab tablet Take 1 tablet by mouth daily at bedtime for 180 days. - clonazePAM orally disintegrating (KLONOPIN WAFER) 0.5 mg disintegrating tablet Take 1 tablet as needed for prolonged seizure or cluster of seizures. Do not exceed more than 2 tablets per day. - montelukast (SINGULAIR) 10 mg tablet Take 10 mg by mouth once daily. - lisinopril-hydrochlor othiazide (PRINZIDE,ZESTORETIC) 20-12.5 mg per tablet Take 0.5 tablets by mouth once daily. Take a half tablet of 20-12.5 daily Problem List As Of Date 11/11/2022 Noted Resolved Focal epilepsy with impairment of consciousness* 019 Hypertension [I10] 07/30/2018 Obstructive sleep apnea [G47.33] 07/30/2018 Tobacco use disorder [F17.200] 07/30/2018 Adjustment disorder with depressed mood [F43.21]07/30/2018 Subjective memory complaints [R41.89] 10/03/2021 History of status epilepticus [Z86.69] 10/03/2021 Tremor [R25.1] 11/21/2021 Encounter Status:Closed by ALEKSANDRA BOWEN on 11/12/22 [facility] Fab[facility] 10-31-2022 [facility] Telephone (NE50MN) PARAMJIT ROMEO JR. ([id number]) 1965 M Date Time Provider Department 10/31/22 LYNDA HUFF NE50MN During your visit today, we recorded the following information about you: Clare Vergara 10/31/2022 2:49 PM Signed Received medical records from [facility]. 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 Huff Forwarded to Dr. Huff for review EDNA Welsh Elizabeth, RN 11/04/2022 8:20 AM Signed Lab requisition faxed to [facility] Received confirmation of transmission Patient aware of above EDNA Welsh Elizabeth, RN 11/11/2022 10:21 AM Signed [place] lab to send LCM result to office EDNA Ricks Elizabeth, RN 11/12/2022 12:32 PM Signed Patient/spouse will discuss results w/Dr. Huff during VV of 12/15/2022 Aleksandra Bowen RN Allergies As of Date: 10/31/2022 Noted Allergy Reaction SEASONAL ALLERGIES 07/30/2018 3 - Cough Comments: Sneezing and Itchy, Watery Eyes PENICILLINS 07/18/2021 16 - Unknown Date Reviewed: 04/24/2022 Reviewed by: Junie Salcido - Fully Assessed Reason for Visit: Received Outside Medical Records [[id number]] Cmt: [facility] Prescriptions as of 11/12/2022 - sertraline (ZOLOFT) 50 mg tablet Take 1 tablet by mouth once daily. - lacosamide (VIMPAT) 150 mg tab Take 2 tablets by mouth twice daily for 180 days. - cloBAZam (ONFI) 10 mg tab tablet Take 1 tablet by mouth daily at bedtime for 180 days. - clonazePAM orally disintegrating (KLONOPIN WAFER) 0.5 mg disintegrating tablet Take 1 tablet as needed for prolonged seizure or cluster of seizures. Do not exceed more than 2 tablets per day. - montelukast (SINGULAIR) 10 mg tablet Take 10 mg by mouth once daily. - lisinopril-hydrochlor othiazide (PRINZIDE,ZESTORETIC) 20-12.5 mg per tablet Take 0.5 tablets by mouth once daily. Take a half tablet of 20-12.5 daily Problem List As Of Date 10/31/2022 Noted Resolved Focal epilepsy with impairment of consciousness* 019 Hypertension [I10] 07/30/2018 Obstructive sleep apnea [G47.33] 07/30/2018 Tobacco use disorder [F17.200] 07/30/2018 Adjustment disorder with depressed mood [F43.21]07/30/2018 Subjective memory complaints [R41.89] 10/03/2021 History of status epilepticus [Z86.69] 10/03/2021 Tremor [R25.1] 11/21/2021 Encounter Status:Closed by [facility]DRA BOWEN [facility] Telephone (NE50MN) PARAMJIT ROMEO JR. ([id number]) 1965 M Date Time Provider Department 10/16/22 LYNDA HUFF NE50MN During your visit today, we recorded the following information about you: Little Ortega 10/16/2022 8:51 AM Signed Prior Authorization Needed: Received by: Fax Requested by (pharmacy name): [facility] Phone number: [phone] Name of medication: Clobazam Strength and dosage: 10 mg Take 1 tablet by mouth daily at bedtime for 180 days. Insurance company name and phone #: [employer] PCN #: BIN#: Group #: Patient of Pennie Clay RN 10/16/2022 11:18 AM Signed Form completed and routed to Dr. Huff for signature thru docusign. One copy faxed to [employer] [phone] One copy faxed to onbase EDNA Hinson Elizabeth, RN 10/17/2022 10:40 AM Signed Spoke twyla/Salena Presley - additional clinical documentation requested Requested information submitted Will await determination EDNA Welsh Elizabeth, RN 10/20/2022 9:26 AM Signed Spoke twyla/Salena Garcia - PA under clinical review Will await determination EDNA Welsh Nancy 10/22/2022 12:29 PM Signed Received approval for Clobazam from [employer]. Approval Dates: 10/22/22-10/22/23. REF #: none given Approval uploaded to [facility]. Aleksandra Bowen RN 10/22/2022 12:34 PM Signed Spoke [facility]yla/[id number] pharmacy - she will process prescription and notify patient Aleksandra Bowen RN Allergies As of Date: 10/16/2022 Noted Allergy Reaction SEASONAL ALLERGIES 07/30/2018 3 - Cough Comments: Sneezing and Itchy, Watery Eyes PENICILLINS 07/18/2021 16 - Unknown Date Reviewed: 04/24/2022 Reviewed by: Junie Salcido - Fully Assessed Reason for Visit: Medication Authorization [1699] Cmt: Clobazam Prescriptions as of 10/22/2022 - sertraline (ZOLOFT) 50 mg tablet Take 1 tablet by mouth once daily. - lacosamide (VIMPAT) 150 mg tab Take 2 tablets by mouth twice daily for 180 days. - cloBAZam (ONFI) 10 mg tab tablet Take 1 tablet by mouth daily at bedtime for 180 days. - clonazePAM orally disintegrating (KLONOPIN WAFER) 0.5 mg disintegrating tablet Take 1 tablet as needed for prolonged seizure or cluster of seizures. Do not exceed more than 2 tablets per day. - montelukast (SINGULAIR) 10 mg tablet Take 10 mg by mouth once daily. - lisinopril-hydrochlor othiazide (PRINZIDE,ZESTORETIC) 20-12.5 mg per tablet Take 0.5 tablets by mouth once daily. Take a half tablet of 20-12.5 daily Problem List As Of Date 10/16/2022 Noted Resolved Focal epilepsy with impairment of consciousness* 019 Hypertension [I10] 07/30/2018 Obstructive sleep apnea [G47.33] 07/30/2018 Tobacco use disorder [F17.200] 07/30/2018 Adjustment disorder with depressed mood [F43.21]07/30/2018 Subjective memory complaints [R41.89] 10/03/2021 History of status epilepticus [Z86.69] 10/03/2021 Tremor [R25.1] 11/21/2021 Encounter Status:Closed by ALEKSANDRA BOWEN on 10/22/22 Normal [facility] CNOVon 10-09-2022 CNOV Office Visit (PSYTMN ) PARAMJIT ROMEO ([id number]) 1965 M Date Time Provider Department 10/09/22 8:00 AM ZAK MERCADO PSYTMN During your visit today, we recorded the following information about you: Zak Mercado, PhD 10/13/2022 10:15 AM Signed [facility] Neurological [place] Section of Neuropsychology Neuropsychological Evaluation Report CONFIDENTIAL Patient: Paramjit Romeo Referred by: Lynda Huff MD Referral: Repeat for Epilepsy Date of : 1965 Date of Evaluation: 10/09/2022 Education: 12 years 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 Paramjit Romeo is a 56-year-old, right-handed, , White, male with epilepsy who was referred for repeat neuropsychological assessment to characterize current cognitive function. His previous evaluation was invalid due to low test engagement, which was ultimately attributed to significant mood symptoms at the time. Since his first evaluation, his mood has significantly improved and he has noticed subsequent improvement in cognition and functional status, but still continues to have mild cognitive concerns. Results from this neuropsychological evaluation suggest that Mr. Romeo's longstanding general level of ability has likely been in the low average to average range. Within that context, he demonstrated mildly reduced novel problem solving, primarily due to difficulty with accurate task conceptualization. Otherwise, performance was commensurate with premorbid function. He demonstrated relative strengths related to processing speed and verbal memory. On mood inventories, he endorsed minimal symptoms of depression and anxiety. IMPRESSIONS: - Neuropsychological evaluation revealed largely intact cognition function, aside from one mild inefficiency related to executive function. Overall, his cognitive profile does not indicate any localized or lateralized cognitive dysfunction. - Consistent with his self report, Mr. Romeo appears to be doing much better after being treated for his mood symptoms. His ongoing cognitive lapses most likely reflect normal age-related changes, as well as variability based on day-to-day fluctuations in chronic pain, mood symptoms (e.g., elevated stress), and occasional marijuana use. Very Superior Superior High Average X X Average X X X X X X X Low Average X X X X Moderately Low X Extremely Low Estimated Premorbid Ability Attention/ Working Memory Processing Speed Language Visuo- spatial Executive Function Verbal Memory Visual Memory This table should not be presented separate from the Neuropsychological Evaluation Report dated 10/09/2022. RECOMMENDATIONS: 1) Driving: Reassuringly, there are no concerns from a cognitive standpoint about Mr. Romeo's return to driving as his performance on measures that evaluate similar cognitive resources required for navigating traffic were at or above expectation. However, a formal driving evaluation is still the best method to assessing driving safety. Mrs. Romeo had questions about where to have this formal driving evaluation and I informed her that [facility] offers this service. If Dr. Huff recommends this evaluation, a referral for Occupational Therapy Driving Evaluation can be placed. 2) Brain Health: Mr. Romeo is encouraged to maintain a healthy lifestyle, which may be beneficial to his brain. Specifically, he is encouraged to remain as active as possible, engaging in physical and mental exercise. General guidelines recommend a minimum of 30 minutes of aerobic activity at least three times per week, with physician approval. Balanced nutrition is also important; the Mediterranean diet and antioxidant-rich foods are recommended. 3) Memory Strategies: Although Mr. Guevaras memory is intact based on cognitive testing, day-to-day memory lapses are common. The following are memory strategies that he is encouraged to use: 1.) Semantic clustering: This strategy involves grouping words or bits of information into meaningful chunks or categories. For example, breaking a long string of numbers (e.g., phone or pin number) into two or three units. Another example is segregating a twenty-item to-do list into three or four smaller categories (e.g., work related, household, family, etc.). In turn, this helps to organize information and increases the likelihood of creating associations or cues, which can also aid in later retrieval. 2.) Verbal mnemonics: These are commonly used memory aids such as acronyms, rhymes, or short stories that help to enrich the memorized information with additional cues. For example, in the medical field the acronym ?ABC? is commonly used as a retrieval cue that prompts someone to check a patient?s airway, breathing, and circulation. 3.) Emotional cues: Selecting emotionally salient verbal or visual cues, whic (more content not included)... Normal [facility] COVID-19 SOFIAOrdered By: Larisa Anne on 02-10-2022 SARS-CoV+SARS-CoV-2 (COVID-19) Ag IA.rapid Ql (Resp) Negative Negative [facility] Comment on above: This is a duplicate [place] SARS Antigen (KEVON) result to be used for statistical tracking purpose only. No Panel InformationOrdered By: Víctor Anne on 02-10-2022 SARS Antigen (LFIA) [facility] Basophils Auto (Bld) [#/Vol] Ordered By: Víctor Anne on 01-28-2022 Basophils (Bld) [#/Vol] 0.0 10*3/uL 0.0-0.2 [facility] Basophils/100 WBC Auto (Bld) Ordered By: Víctor Anne on 01-28-2022 Basophils/100 WBC (Bld) 0.4 % . [facility] Body fluid albumin measureme nt (mass/volume)Ordered By: Víctor Anne on 01-28-2022 Albumin (Body fld) [Mass/Vol] 4.2 g/dL 3.2-5.5 [facility] Creatinine and Glomerular fi ltration rate.predicted panel (S/P/Bld)Ordered By: Víctor Anne on 01-28-2022 Creatinine [Mass/Vol] 0.74 mg/dL 0.64-1.27 [facility] Eosinophils Auto (Bld) [#/Vo l]Ordered By: Víctor Anne on 01-28-2022 Eosinophils (Bld) [#/Vol] 0.1 10*3/uL 0.0-0.45 [facility] Eosinophils/100 WBC Auto (Bl d)Ordered By: Víctor Anne on 01-28-2022 Eosinophils/100 WBC (Bld) 1.0 % . [facility] Erythrocyte distribution wid th Auto (RBC) [Ratio]Ordered By: Víctor Anne on 01-28-2022 Erythrocyte distribution width (RBC) [Ratio] 13.4 % 12.0-14.8 [facility] Estimated glomerular filtrat ion rate (GFR) non- AmericanOrdered By: Víctor Anne on 01-28-2022 GFR/1.73 sq M.predicted among non-blacks MDRD (S/P/Bld) [Vol rate/Area] > 60 mL/Min [facility] Globulin Calc (S) [Mass/Vol] Ordered By: Víctor Anne on 01-28-2022 Globulin (S) [Mass/Vol] 2.5 g/dL [facility] Hematocrit Auto (Bld) [Volum e fraction]Ordered By: Víctor Anen on 01-28-2022 Hematocrit (Bld) [Volume fraction] 39.7 % 38.8-50.0 [facility] Hemoglobin [Mass/volume] in BloodOrdered By: Víctor Anne on 01-28-2022 Hemoglobin (Bld) [Mass/Vol] 13.4 g/dL 13.0-17.0 [facility] Laboratory - Hematology and Cell countsOrdered By: Víctor Anne on 01-28-2022 Nucleated RBC/100 WBC (Bld) [Ratio] 0.1 % 0-0.5 [facility] Lymphocytes Auto (Bld) [#/Vo l]Ordered By: Víctor Anne on 01-28-2022 Lymphocytes (Bld) [#/Vol] 1.6 10*3/uL 1.00-4.8 [facility] Lymphocytes/100 WBC Auto (Bl d)Ordered By: Víctor Anne on 01-28-2022 Lymphocytes/100 WBC (Bld) 22.9 % . [facility] MCH Auto (RBC) [Entitic mass ]Ordered By: Víctor Anne on 01-28-2022 MCH (RBC) [Entitic mass] 32.3 pg 27.5-35.2 [facility] MCHC Auto (RBC) [Mass/Vol]Or dered By: Víctor Anne on 01-28-2022 MCHC (RBC) [Mass/Vol] 33.8 g/dL 32.5-35.6 [facility] MCV Auto (RBC) [Entitic vol] Ordered By: Víctor Anne on 01-28-2022 MCV (RBC) [Entitic vol] 95.8 fL 83.5-101 [facility] Monocytes Auto (Bld) [#/Vol] Ordered By: Víctor Anne on 01-28-2022 Monocytes (Bld) [#/Vol] 0.6 10*3/uL 0.0-0.8 [facility] Monocytes/100 WBC Auto (Bld) Ordered By: Víctor Anne on 01-28-2022 Monocytes/100 WBC (Bld) 9.3 % . [facility] Neutrophils Auto (Bld) [#/Vo l]Ordered By: Víctor Anne on 01-28-2022 Neutrophils (Bld) [#/Vol] 4.5 10*3/uL 1.8-7.7 [facility] Neutrophils/100 WBC Auto (Bl d)Ordered By: Víctor Anne on 01-28-2022 Neutrophils/100 WBC (Bld) 66.4 % . [facility] No Panel InformationOrdered By: Víctor Anne on 01-28-2022 Estimated GFR () > 60 mL/Min [facility] Comment on above: GFR estimated refere nce range: According to KDOQI guidelines, <60 ml/min/1.73m2 is sufficient to diagnose a patient with chronic kidney disease. Pharmacy Creatinine Clearance (Chem N/A [facility] Platelet mean volume Auto (B ld) [Entitic vol]Ordered By: Víctor Anne on 01-28-2022 Platelet mean volume (Bld) [Entitic vol] 7.8 fL 6.6-10.1 [facility] Platelets Auto (Bld) [#/Vol] Ordered By: Víctor Anne on 01-28-2022 Platelets (Bld) [#/Vol] 250 10*3/uL 150-450 [facility] Protein [Mass/volume] in Ser um or PlasmaOrdered By: Víctor Anne on 01-28-2022 Protein [Mass/Vol] 6.7 g/dL 6.1-7.9 [facility] RBC Auto (Bld) [#/Vol]Ordere d By: Víctor Anne on 01-28-2022 RBC (Bld) [#/Vol] 4.15 10*6/uL 3.90-5.60 [facility] Serum or plasma alanine estrada otransferase measurement without P-5'-P (enzymatic activiOrdered By: Víctor Anne on 01-28-2022 ALT No additional P-5'-P [Catalytic activity/Vol] 25 U/L 60 [facility] Serum or plasma albumin/glob ulin mass ratioOrdered By: Víctor Anne on 01-28-2022 Albumin/Globulin [Mass ratio] 1.7 {ratio} [facility] Serum or plasma alkaline estrellita sphatase measurement (enzymatic activity/volume)Ordered By: Víctor Anne on 01-28-2022 ALP [Catalytic activity/Vol] 52 U/L 32-92 [facility] Serum or plasma anion gap de terminationOrdered By: Víctor Anne on 01-28-2022 Anion gap [Moles/Vol] 14.0 mmol/L 6.0-15.[address] [facility] Serum or plasma aspartate am inotransferase measurement (enzymatic activity/volume)Ordered By: Víctor Anne on 01-28-2022 AST [Catalytic activity/Vol] 27 U/L 10-42 [facility] Serum or plasma calcium davonte urement (mass/volume)Ordered By: Víctor Anne on 01-28-2022 Calcium [Mass/Vol] 9.4 mg/dL 8.2-10.2 [facility] Serum or plasma chloride cl surement (moles/volume)Ordered By: Víctor Anne on 01-28-2022 Chloride [Moles/Vol] 103 mmol/L 95-114 [facility] Serum or plasma glucose davonte urement (mass/volume)Ordered By: Víctor Anne on 01-28-2022 Glucose [Mass/Vol] 91 mg/dL 70-100 [facility] Comment on above: ADA recommended refe rence rangeRandom Glucose Reference Range is dependent on time and content of last meal. Glucose of more than 200 mg/dL in a nonstressed, ambulatory subject supports the diagnosis of Diabetes Mellitus. Serum or plasma potassium me asurement (moles/volume)Ordered By: Víctor Anne on 01-28-2022 Potassium [Moles/Vol] 4.2 mmol/L 3.5-5.1 [facility] Serum or plasma sodium measu rement (moles/volume)Ordered By: Víctor Anne on 01-28-2022 Sodium [Moles/Vol] 138 mmol/L 136-146 [facility] Serum or plasma total biliru bin measurement (mass/volume)Ordered By: Víctor Anne on 01-28-2022 Bilirubin [Mass/Vol] 0.6 mg/dL 0.3-1.2 [facility] Serum or plasma total carbon dioxide measurement (moles/volume)Ordered By: Víctor Anne on 01-28-2022 CO2 [Moles/Vol] 25.2 mmol/L 22.0-30.0 [facility] Serum or plasma urea nitroge n measurement (mass/volume)Ordered By: Víctor Anne on 01-28-2022 Urea nitrogen [Mass/Vol] 14 mg/dL 9-23 [facility] WBC Auto (Bld) [#/Vol]Ordere d By: Víctor Anne on 01-28-2022 WBC (Bld) [#/Vol] 6.9 10*3/uL 4.5-11.0 [facility] DEPAKENE/VALPROICon 11-17-19 22 DEPAKENE 64.1 ug/ml Normal 50.0-100.0 [facility] Comment on above: Performed By: #### V ALP #### [facility] [address] [address] [address] Michael Shah CLOBAZAMon 10-28-2021 Clobazam 177 ng/mL Normal 30-300 [facility] Comment on above: Performed By: #### C LOBAZA #### [facility] [address] [place] [address] Dr. Michael Shah Desmethylcobazam 622 ng/mL Normal 300-3000 [facility] Comment on above: Result Comment: This test was developed and its performance characteristics determined by [facility]. It has not been cleared or approved by the Food and Drug Administration. Performed By: #### C KINGAZA #### [facility] [address] [place] [address] Dr. Michael Shah LACOSAMIDEon 10-24-2021 Lacosamide 17.3 ug/mL Critically high 5.0-10.0 [facility] Comment on above: Result Comment: This test was developed and its performance characteristics determined by [facility]. It has not been cleared or approved by the Food and Drug Administration. Limit of Detection 0.5 . Mean plasma concentrations following maintenance dose 200 mg/day 4.99 +/- 2.51 ug/mL 400 mg/day 9.35 +/- 4.22 ug/mL 600 mg/day 12.46 +/- 5.60 ug/mL Performed By: #### L ACOSAM #### [facility] [address] [place] [address] Dr. Michael Shah FREE VALPROIC ACIDon 022 Free Valproic Acid (Depakote) 18.2 ug/mL Normal 6.0-22.0 [facility] Comment on above: Result Comment: Dete ction Limit = 0.5 Performed By: #### F RVALP #### [facility] [address] [place] [address] Dr. Michael Shah CBC AUTO DIFFon 10-19-2021 BASO # 0.0 103/ul Normal 0.0-0.1 [facility] Comment on above: Performed By: #### C BC #### [facility] [address] [place] [address] Dr. Michael Shah Basophils/100 WBC (Bld) 0.8 % Normal 0.2-2.0 [facility] Comment on above: Performed By: #### C BC #### [facility] [address] [place] [address] Dr. Michael Shah EO # 0.1 103/ul Normal 0.0-0.7 [facility] Comment on above: Performed By: #### C BC #### [facility] [address] [place] [address] Dr. Michael Shah Eosinophils/100 WBC (Bld) 2.7 % Normal 0.9-7.0 [facility] Comment on above: Performed By: #### C BC #### [facility] [address] [place] [address] Dr. Michael Shah Erythrocyte distribution width (RBC) [Ratio] 13.0 % Normal 11.0-15.0 [facility] Comment on above: Performed By: #### C BC #### [facility] [address] [place] [address] Dr. Michael Shah Hematocrit (Bld) [Volume fraction] 44.9 % Normal 42.0-54.0 [facility] Comment on above: Performed By: #### C BC #### [facility] [address] [place] [address] Dr. Michael Shah Hemoglobin (Bld) [Mass/Vol] 15.2 g/dL Normal 14.0-18.0 [facility] Comment on above: Performed By: #### C BC #### [facility] [address] [place] [address] Dr. Michael Shah IG # 0.03 10e3/ul Normal 0.00-0.03 [facility] Comment on above: Performed By: #### C BC #### [facility] [address] [place] [address] Dr. Michael Shah IG % 0.6 % Critically high 0.0-0.5 [facility] Comment on above: Performed By: #### C BC #### [facility] [address] [place] [address] Dr. Mihcael Shah LYMPH # 2.1 103/ul Normal 1.2-3.8 [facility] Comment on above: Performed By: #### C BC #### [facility] [address] [address] [address] Michael Shah Lymphocytes/100 WBC (Bld) 39.7 % Normal 20.5-60.0 [facility] Comment on above: Performed By: #### C BC #### [facility] [address] [address] [address] Michael Shah MANUAL DIFF REQ NO Normal [facility] Comment on above: Performed By: #### C BC #### [facility] [address] [address] [address] Michael Shah MCH (RBC) [Entitic mass] 32.6 pg Normal 25.9-34.0 [facility] Comment on above: Performed By: #### C BC #### [facility] [address] [place] [address] Dr. Michael Shah MCHC (RBC) [Mass/Vol] 33.9 g/dL Normal 29.9-35.2 [facility] Comment on above: Performed By: #### C BC #### [facility] [address] [place] [address] Dr. Michael Shah MCV (RBC) [Entitic vol] 96.4 fL Critically high 80.0-94 .0 [facility] Comment on above: Performed By: #### C BC #### [facility] [address] [place] [address] Dr. Michael Shah MONO # 0.6 103/ul Normal 0.3-0.8 [facility] Comment on above: Performed By: #### C BC #### [facility] [address] [place] [address] Dr. Michael Shah Monocytes/100 WBC (Bld) 11.4 % Normal 1.7-12.0 [facility] Comment on above: Performed By: #### C BC #### [facility] [address] [place] [address] Dr. Michael Shah NEUT # 2.3 103/ul Normal 1.4-6.5 [facility] Comment on above: Performed By: #### C BC #### [facility] [address] [address] [address] Michael Shah Neutrophils/100 WBC (Bld) 44.8 % Normal 43.0-75.0 [facility] Comment on above: Performed By: #### C BC #### [facility] [address] [address] [address] Michael Shah Platelet mean volume (Bld) [Entitic vol] 10.1 fL Normal 9.5-13.5 [facility] Comment on above: Performed By: #### C BC #### [facility] [address] [address] [address] Michael Shah PLT 178 103/ul Normal 150-450 [facility] Comment on above: Performed By: #### C BC #### [facility] [address] [place] [address] Dr. Michael Shah RBC 4.66 106/ul Critically low 4.70-6.[address] [facility] Comment on above: Performed By: #### C BC #### [facility] [address] [place] [address] Dr. Michael Shah WBC 5.2 103/ul Normal 4.0-11.0 [facility] Comment on above: Performed By: #### C BC #### [facility] [address] [place] [address] Dr. Michael Shah DEPAKENE/VALPROICon 10-19- 22 DEPAKENE 96.8 ug/ml Normal 50.0-100.0 [facility] Comment on above: Performed By: #### V ALP #### [facility] [address] [place] [address] Dr. Michael Shah [facility] SARS-CoV-2 (COVID-19) RNA VALENCIA+probe Ql (Unsp spec) Not detected Normal NOT DETECTED [facility] Comment on above: Result Comment: This test is not yet approved or cleared by the [place] FDA. When there are no FDA-approved or cleared tests available, and other criteria are met, FDA can make tests available under an emergency access mechanism called an Emergency Use Authorization (EUA). The EUA for this test is supported by the [place] of Health and Human Service's (HHS's) declaration that circumstances exist to justify the emergency use of in vitro diagnostics for the detection and/or diagnosis of the virus that causes COVID-19. This EUA will remain in effect (meaning this test can be used) for the duration of the COVID-19 declaration justifying emergency of IVDs, unless it is terminated or revoked by FDA (after which the test may no longer be used). When diagnostic testing is negative, the possibility of a false negative should be considered in the context of a patient's recent exposures and the presence of clinical signs and symptoms consistent with SARS-CoV-2. Performed By: #### C EVANS #### [facility] [address] [place] [address] Dr. Michael Shah LACOSAMIDEon 07-04-2021 Lacosamide 9.1 ug/mL Normal 5.0-10.0 [facility] Comment on above: Result Comment: This test was developed and its performance characteristics determined by [employer]. It has not been cleared or approved by the Food and Drug Administration. Limit of Detection 0.5 . Mean plasma concentrations following maintenance dose 200 mg/day 4.99 +/- 2.51 ug/mL 400 mg/day 9.35 +/- 4.22 ug/mL 600 mg/day 12.46 +/- 5.60 ug/mL Performed By: #### C KINGAZA #### [facility] [address] [place] [address] Dr. Michael Shah FREE VALPROIC ACIDon 022 Free Valproic Acid (Depakote) 14.3 ug/mL Normal 6.0-22.0 [facility] Comment on above: Result Comment: Dete ction Limit = 0.5 Performed By: #### F RVALP #### [facility] [address] [place] [address] Dr. Michael Shah CBC AUTO DIFFon 06-29-2021 BASO # 0.1 103/ul Normal 0.0-0.1 [facility] Comment on above: Performed By: #### C BC #### [facility] [address] [address] [address] Michael Shah Basophils/100 WBC (Bld) 0.8 % Normal 0.2-2.0 [facility] Comment on above: Performed By: #### C BC #### [facility] [address] [place] [address] Dr. Michael Shah EO # 0.1 103/ul Normal 0.0-0.7 [facility] Comment on above: Performed By: #### C BC #### [facility] [address] [place] [address] Dr. Michael Shah Eosinophils/100 WBC (Bld) 0.9 % Normal 0.9-7.0 [facility] Comment on above: Performed By: #### C BC #### [facility] [address] [place] [address] Dr. Michael Shah Erythrocyte distribution width (RBC) [Ratio] 12.9 % Normal 11.0-15.0 [facility] Comment on above: Performed By: #### C BC #### [facility] [address] [place] [address] Dr. Michael Shah Hematocrit (Bld) [Volume fraction] 42.1 % Normal 42.0-54.0 [facility] Comment on above: Performed By: #### C BC #### [facility] [address] [place] [address] Dr. Michael Shah Hemoglobin (Bld) [Mass/Vol] 13.8 g/dL Critically low 14.0-18.0 [facility] Comment on above: Performed By: #### C BC #### [facility] [address] [place] [address] Dr. Michael Shah IG # 0.25 10e3/ul Critically high 0.00-0.03 [facility] Comment on above: Performed By: #### C BC #### [facility] [address] [place] [address] Dr. Michael Shah IG % 2.5 % Critically high 0.0-0.[address] [facility] Comment on above: Performed By: #### C BC #### [facility] [address] [address] [address] Michael Shah LYMPH # 5.1 103/ul Critically high 1.2-3.8 [facility] Comment on above: Performed By: #### C BC #### [facility] [address] [place] [address] Dr. Michael Shah Lymphocytes/100 WBC (Bld) 51.5 % Normal 20.5-60.0 [facility] Comment on above: Performed By: #### C BC #### [facility] [address] [place] [address] Dr. Michael Shah MANUAL DIFF REQ NO Normal [facility] Comment on above: Performed By: #### C BC #### [facility] [address] [place] [address] Dr. Michael Shah MCH (RBC) [Entitic mass] 31.5 pg Normal 25.9-34.0 [facility] Comment on above: Performed By: #### C BC #### [facility] [address] [place] [address] Dr. Michael Shah MCHC (RBC) [Mass/Vol] 32.8 g/dL Normal 29.9-35.2 [facility] Comment on above: Performed By: #### C BC #### [facility] [address] [place] [address] Dr. Michael Shah MCV (RBC) [Entitic vol] 96.1 fL Critically high 80.0-94 .0 [facility] Comment on above: Performed By: #### C BC #### [facility] [address] [place] [address] Dr. Michael Shah MONO # 1.1 103/ul Critically high 0.3-0.8 [facility] Comment on above: Performed By: #### C BC #### [facility] [address] [place] [address] Dr. Michael Shah Monocytes/100 WBC (Bld) 10.8 % Normal 1.7-12.0 [facility] Comment on above: Performed By: #### C BC #### [facility] [address] [place] [address] Dr. Michael Shah NEUT # 3.3 103/ul Normal 1.4-6.5 [facility] Comment on above: Performed By: #### C BC #### [facility] [address] [place] [address] Dr. Michael Shah Neutrophils/100 WBC (Bld) 33.5 % Critically low 43.0-75.0 [facility] Comment on above: Performed By: #### C BC #### [facility] [address] [place] [address] Dr. Michael Shah Platelet mean volume (Bld) [Entitic vol] 8.8 fL Critically low 9.5-13.5 [facility] Comment on above: Performed By: #### C BC #### [facility] [address] [place] [address] Dr. Michael Shah PLT 275 103/ul Normal 150-450 [facility] Comment on above: Performed By: #### C BC #### [facility] [address] [place] [address] Dr. Michael Shah RBC 4.38 106/ul Critically low 4.70-6.[address] [facility] Comment on above: Performed By: #### C BC #### [facility] [address] [place] [address] Dr. Michael Shah WBC 9.9 103/ul Normal 4.0-11.0 [facility] Comment on above: Performed By: #### C BC #### [facility] [address] [place] [address] Dr. Michael Shah DEPAKENE/VALPROICon 06-30-19 22 DEPAKENE 81.2 ug/ml Normal 50.0-100.0 [facility] Comment on above: Performed By: #### V ALP, CMP #### [facility] [address] [place] [address] Dr. Michael Shah PROF 14(COMP METB)on 022 Albumin [Mass/Vol] 3.8 g/dL Normal 3.4-5.0 [facility] Comment on above: Performed By: #### V ALP, CMP #### [facility] [address] [address] [address] Michael Shah Albumin/Globulin [Mass ratio] 1.1 {ratio} Normal [facility] Comment on above: Performed By: #### V ALP, CMP #### [facility] [address] [address] [address] Michael Shah ALP [Catalytic activity/Vol] 58 U/L Normal 46-116 [facility] Comment on above: Performed By: #### V ALP, CMP #### [facility] [address] [address] [address] Michael Shah ALT [Catalytic activity/Vol] 42 U/L Normal 16-63 [facility] Comment on above: Performed By: #### V ALP, CMP #### [facility] [address] [address] [address] Michael Shah Anion gap [Moles/Vol] 14.4 mmol/L Normal [facility] Comment on above: Performed By: #### V ALP, CMP #### [facility] [address] [address] [address] Michael Shah AST [Catalytic activity/Vol] 25 U/L Normal 15-37 [facility] Comment on above: Performed By: #### V ALP, CMP #### [facility] [address] [address] [address] Michael Shah Bilirubin [Mass/Vol] 0.4 mg/dL Normal 0.2-1.0 [facility] Comment on above: Performed By: #### V ALP, CMP #### [facility] [address] [address] [address] Michael Shah Calcium [Mass/Vol] 8.9 mg/dL Normal 8.5-10.1 [facility] Comment on above: Performed By: #### V ALP, CMP #### [facility] [address] [address] [address] Michael Shah Chloride [Moles/Vol] 99 mmol/L Normal 98-107 [facility] Comment on above: Performed By: #### V ALP, CMP #### [facility] [address] [address] [address] Michael Shah CO2 [Moles/Vol] 28.7 mmol/L Normal 21.0-32.0 [facility] Comment on above: Performed By: #### V ALP, CMP #### [facility] [address] [address] [address] Michael Shah Creatinine [Mass/Vol] 0.75 mg/dL Normal 0.70-1.30 [facility] Comment on above: Performed By: #### V ALP, CMP #### [facility] [address] [address] [address] Michael Shah EGFR-AF TAIWANESE >60 Normal >=60 [facility] Comment on above: Performed By: #### V ALP, CMP #### [facility] [address] [place] [address] Dr. Michael Shah EGFR-NON AF TAIWANESE >60 Normal >=60 [facility] Comment on above: Performed By: #### V ALP, CMP #### [facility] [address] [address] [address] Michael Shah Globulin (S) [Mass/Vol] 3.4 g/dL Normal [facility] Comment on above: Performed By: #### V ALP, CMP #### [facility] [address] [place] [address] Dr. Michael Shah Glucose [Mass/Vol] 82 mg/dL Normal 74-106 [facility] Comment on above: Performed By: #### V ALP, CMP #### [facility] [address] [address] [address] Michael Shah Potassium [Moles/Vol] 4.1 mmol/L Normal 3.5-5.1 [facility] Comment on above: Performed By: #### V ALP, CMP #### [facility] [address] [address] [address] Michael Shah Protein [Mass/Vol] 7.2 g/dL Normal 6.1-8.2 [facility] Comment on above: Performed By: #### V ALP, CMP #### [facility] [address] [address] [address] Michael Shah Sodium [Moles/Vol] 138 mmol/L Normal 136-145 [facility] Comment on above: Performed By: #### V ALP, CMP #### [facility] [address] [address] [address] Michael Shah Urea nitrogen [Mass/Vol] 18.0 mg/dL Normal 7.0-18.0 [facility] Comment on above: Performed By: #### V ALP, CMP #### [facility] [address] [address] [address] Michael Shah Urea nitrogen/Creatinine [Mass ratio] 24.0 mg/mg Normal [facility] Comment on above: Performed By: #### V ALP, CMP #### [facility] [address] [address] [address] Michael Shah COVID Quick Testingon 2021 Result Negative [employer] Other Quick Fluon 06-24-2021 FLUAV Ab CF (S) [Titer] Negative N [email or web address] Other FLUBV Ab CF (S) [Titer] Negative [email or web address] Other COVID Quick Testingon 2021 Result Positive [employer] Other COVID Quick Testingon 2020 Result Negative [employer] Other Coding Summary.on 12-27-2019 Coding Summary. CODING DATE: 12/27/2019 FINAL [facility] STATUS: PAYOR: Riki ADMIT DX: REASON FOR VISIT DX: Z20.828 Contact with and (suspected) exposure to other viral communicable diseases FINAL DX: PRINCIPAL: Z20.828 Contact with and (suspected) exposure to other viral communicable diseases SECONDARY: PYMT PROC APC STAT DESCRIPTION DOCTOR NAME DATE NOTE: The code number assigned matches the documented diagnosis and / or procedure in the patient's chart. However, the narrative phrase printed from the coding software may appear abbreviated, or result in slightly different terminology. Coded By: Beverley Brand CphT Date Saved: 12/27/2019 06:18 pm Normal [facility] SARS-CoV-2, NAAon 10-28-2019 SARS CORONAVIRUS 2 RNA:PRTHR:PT:RESPIRATOR Y:ORD:PROBE.AMP.TAR Not Detected Not Detected [facility] Comment on above: Result Comment: This test was developed and its performance characteristics determined by [employer]. This test has not been FDA cleared or approved. This test has been authorized by FDA under an Emergency Use Authorization (EUA). This test is only authorized for the duration of time the declaration that circumstances exist justifying the authorization of the emergency use of in vitro diagnostic tests for detection of SARS-CoV-2 virus and/or diagnosis of COVID-19 infection under section 564(b)(1) of the Act, 21 U.S.C. 360bbb-3(b)(1), unless the authorization is terminated or revoked sooner. When diagnostic testing is negative, the possibility of a false negative result should be considered in the context of a patient's recent exposures and the presence of clinical signs and symptoms consistent with COVID-19. An individual without symptoms of COVID-19 and who is not shedding SARS-CoV-2 virus would expect to have a negative (not detected) result in this assay. Performed at: [facility] [place] [id number] MD Sonido Garza Performed By: #### S ARS-CoV-2, VALENCIA #### [facility] [address] [place] [address] Physician Orderon 10-26-2019 Physician Order [id number]:127 Normal [facility] Vital Signs Date Time Vital Sign Value Performing Clinician Facility 10-12-2023 09:46-0400 Body height 175.26 cm MD Yessenia Brannon Work Phone: [facility] 10-12-2023 09:46-0400 Body mass index (BMI) [Ratio] 26.6 kg/m2 MD Yessenia Brannon Work Phone: [facility] 10-12-2023 09:46-0400 Body temperature 98.2 [degF] MD Yessenia Brannon Work Phone: [facility] 10-12-2023 09:46-0400 Body weight 81.64 kg MD Yessenia Brannon Work Phone: [facility] 10-12-2023 09:46-0400 Diastolic blood pressure 80 mm[Hg] MD Yessenia Brannon Work Phone: [facility] 10-12-2023 09:46-0400 Heart rate 60 /min MD Yessenia Brannon Work Phone: [facility] 10-12-2023 09:46-0400 Respiratory rate 18 /min MD Yessenia Brannon Work Phone: [facility] 10-12-2023 09:46-0400 SaO2% (BldA) [Mass fraction] 99 % MD Yessenia Brannon Work Phone: [facility] 10-12-2023 09:46-0400 Systolic blood pressure 149 mm[Hg] MD Yessenia Brannon Work Phone: [facility] 09-23-2023 16:55-0400 Body height 175.26 cm MD Yessenia Brannon Work Phone: [facility] 09-23-2023 16:55-0400 Body mass index (BMI) [Ratio] 28.2 kg/m2 MD Yessenia Brannon Work Phone: [facility] 09-23-2023 16:55-0400 Body temperature 98.6 [degF] MD Yessenia Brannon Work Phone: [facility] 09-23-2023 16:55-0400 Body weight 86.63 kg MD Yessenia Brannon Work Phone: [facility] 09-23-2023 16:55-0400 Diastolic blood pressure 80 mm[Hg] MD Yessenia Brannon Work Phone: [facility] 09-23-2023 16:55-0400 Heart rate 65 /min MD Yessenia Brannon Work Phone: [facility] 09-23-2023 16:55-0400 SaO2% (BldA) [Mass fraction] 98 % MD Yessenia Brannon Work Phone: [facility] 09-23-2023 16:55-0400 Systolic blood pressure 127 mm[Hg] MD Yessenia Brannon Work Phone: [facility] 08-19-2023 16:04-0400 Body height 175.26 cm MD Yessenia Brannon Work Phone: [facility] 08-19-2023 16:04-0400 Body mass index (BMI) [Ratio] 27.3 kg/m2 MD Yessenia Brannon Work Phone: [facility] 08-19-2023 16:04-0400 Body temperature 98.2 [degF] MD Yessenia Brannon Work Phone: [facility] 08-19-2023 16:04-0400 Body weight 84 kg MD Yessenia Brannon Work Phone: [facility] 08-19-2023 16:04-0400 Diastolic blood pressure 77 mm[Hg] MD Yessenia Brannon Work Phone: [facility] 08-19-2023 16:04-0400 Heart rate 55 /min MD Yessenia Brannon Work Phone: [facility] 08-19-2023 16:04-0400 Respiratory rate 16 /min MD Yessenia Brannon Work Phone: [facility] 08-19-2023 16:04-0400 SaO2% (BldA) [Mass fraction] 97 % MD Yessenia Brannon Work Phone: [facility] 08-19-2023 16:04-0400 Systolic blood pressure 121 mm[Hg] MD Yessenia Brannon Work Phone: [facility] 08-09-2023 13:30-0400 Body height 175.26 cm MD Yessenia Brannon Work Phone: [facility] 08-09-2023 13:30-0400 Body mass index (BMI) [Ratio] 27.4 kg/m2 MD Yessenia Brannon Work Phone: [facility] 08-09-2023 13:30-0400 Body temperature 96.8 [degF] MD Yessenia Brannon Work Phone: [facility] 08-09-2023 13:30-0400 Body weight 84.42 kg MD Yessenia Brannon Work Phone: [facility] 08-09-2023 13:30-0400 Diastolic blood pressure 78 mm[Hg] MD Yessenia Brannon Work Phone: [facility] 08-09-2023 13:30-0400 Heart rate 66 /min MD Yessenia Brannon Work Phone: [facility] 08-09-2023 13:30-0400 Respiratory rate 16 /min MD Yessenia Brannon Work Phone: [facility] 08-09-2023 13:30-0400 SaO2% (BldA) [Mass fraction] 96 % MD Yessenia Brannon Work Phone: [facility] 08-09-2023 13:30-0400 Systolic blood pressure 122 mm[Hg] MD Yessenia Brannon Work Phone: [facility] 02-02-2023 10:30-0500 Body height 175.26 cm Yessenia Brannon Other [facility] [employer] Other 02-02-2023 10:30-0500 Body mass index (BMI) [Ratio] 29.74 kg/m2 Yessenia Brannon Other [facility] [employer] Other 02-02-2023 10:30-0500 Body weight 91.36 kg Yessenia Brannon Other [facility] [employer] Other 02-02-2023 10:30-0500 Diastolic blood pressure 82 mm[Hg] Yessenia Brannon Other [facility] [employer] Other 02-02-2023 10:30-0500 SaO2% (BldA) [Mass fraction] 96 % Yessenia Brannon Other [employer] Other 02-02-2023 10:30-0500 Systolic blood pressure 130 mm[Hg] Yessenia Brannon Other [employer] Other 01-29-2023 12:10-0500 Body height 175.26 cm Olesya Susan Other [employer] Other 01-29-2023 12:10-0500 Body mass index (BMI) [Ratio] 29.89 kg/m2 Olesya Susan Other [employer] Other 01-29-2023 12:10-0500 Body temperature 100.1 [degF] Olesya Susan Other [employer] Other 01-29-2023 12:10-0500 Body weight 91.81 kg Olesya Susan Other [employer] Other 01-29-2023 12:10-0500 Respiratory rate 18 /min Olesya Susan Other [employer] Other 01-29-2023 12:10-0500 SaO2% (BldA) [Mass fraction] 98 % Olesya Susan Other [employer] Other 04-24-2022 12:29-0500 Body height 172.7 cm Carline Kincaid MD Work Phone: [facility] 04-24-2022 12:29-0500 Body weight 92.53 kg Carline Kincaid MD Work Phone: [facility] 04-24-2022 12:29-0500 Diastolic blood pressure 75 mm[Hg] Carline Kincaid MD Work Phone: [facility] 04-24-2022 12:29-0500 Heart rate 67 /min Carline Kincaid MD Work Phone: [facility] 04-24-2022 12:29-0500 Respiratory rate 19 /min Carline Kincaid MD Work Phone: [facility] 04-24-2022 12:29-0500 SaO2% (BldA) [Mass fraction] 97 % Carline Kincaid MD Work Phone: [facility] 04-24-2022 12:29-0500 Systolic blood pressure 144 mm[Hg] Carline Kincaid MD Work Phone: [facility] 02-12-2022 11:30-0500 Diastolic blood pressure 75 mm[Hg] DO [place] Work Phone: [facility] 02-12-2022 11:30-0500 Heart rate 68 /min DO House Work Phone: [facility] 02-12-2022 11:30-0500 Respiratory rate 16 /min DO Folkstr Work Phone: [facility] 02-12-2022 11:30-0500 SaO2% (BldA) [Mass fraction] 96 % DO [place] Work Phone: [facility] 02-12-2022 11:30-0500 Systolic blood pressure 117 mm[Hg] DO House Work Phone: [facility] 02-12-2022 10:49-0500 Body temperature 98 [degF] DO House Work Phone: [facility] 02-12-2022 10:14-0500 Inhaled oxygen flow rate 8 L/min DO House Work Phone: [facility] 02-12-2022 08:32-0500 Body height 172.72 cm DO House Work Phone: [facility] 02-12-2022 08:32-0500 Body mass index (BMI) [Ratio] 31.4 kg/m2 DO House Work Phone: [facility] 02-12-2022 08:32-0500 Body weight 93.9 kg DO House Work Phone: [facility] 01-07-2022 09:00-0500 Body height 175.26 cm Víctor Olexa Other [employer] Other 12-26-2021 10:15-0400 Body height 175.26 cm Víctor Olexa Other [employer] Other 12-26-2021 10:15-0400 Body mass index (BMI) [Ratio] 29.53 kg/m2 Víctor Olexa Other [employer] Other 12-26-2021 10:15-0400 Body weight 90.72 kg Víctor Olexa Other [employer] Other 06-24-2021 13:25-0400 Body height 175.26 cm Rosemarie Quintero Other [employer] Other 06-24-2021 13:25-0400 Body mass index (BMI) [Ratio] 29.53 kg/m2 Rosemarie Quintero Other [employer] Other 06-24-2021 13:25-0400 Body temperature 97.8 [degF] Rosemarie Quintero Other [employer] Other 06-24-2021 13:25-0400 Body weight 90.72 kg Rosemarie Leon Other [employer] Other 06-24-2021 13:25-0400 SaO2% (BldA) [Mass fraction] 98 % Rosemarie Quintero Other [employer] Other 03-13-2021 13:45-0500 Body height 175.26 cm Víctor Selby Other [employer] Other 03-13-2021 13:45-0500 Body mass index (BMI) [Ratio] 29.53 kg/m2 Víctor Selby Other [employer] Other 03-13-2021 13:45-0500 Body temperature 98.7 [degF] Víctor Selby Other [employer] Other 03-13-2021 13:45-0500 Body weight 90.72 kg Víctor Selby Other [employer] Other 03-13-2021 13:45-0500 Respiratory rate 18 /min Víctor Selby Other [employer] Other 03-13-2021 13:45-0500 SaO2% (BldA) [Mass fraction] 98 % Víctor Selby Other [employer] Other 12-31-2020 14:45-0400 Body height 175.26 cm Rosemarie Quintero Other [employer] Other 12-31-2020 14:45-0400 Body mass index (BMI) [Ratio] 29.53 kg/m2 Rosemarie Quintero Other [employer] Other 12-31-2020 14:45-0400 Body temperature 98.9 [degF] Rosemarie Quintero Other [employer] Other 12-31-2020 14:45-0400 Body weight 90.72 kg Rosemarie Quintero Other [employer] Other 12-31-2020 14:45-0400 SaO2% (BldA) [Mass fraction] 98 % Rosemarie Quintero Other [employer] Other Encounters Encounter Date Encounter Type Care Provider Facility Start: 10-19-2023 End: 10-19-2023 ambulatory MINNA B APLING Not Available Start: 10-19-2023 ambulatory [facility] Work Phone: Start: 10-19-2023 Non-patient / Non-visit [facility] [employer] Work Phone: Start: 10-12-2023 End: 10-12-2023 ambulatory MD Yessenia Brannon Work Phone: [facility] Work Phone: Start: 10-12-2023 End: 10-12-2023 Patient encounter procedure MD Yessenia Brannon Work Phone: [facility] Work Phone: Start: 09-23-2023 End: 09-23-2023 ambulatory MD Yessenia Brannon Work Phone: [facility] Work Phone: Start: 09-23-2023 End: 09-23-2023 Patient encounter procedure MD Yessenia Brannon Work Phone: [facility] Work Phone: Start: 08-19-2023 End: 08-19-2023 ambulatory MD Yessenia Brannon Work Phone: [facility] Work Phone: Start: 08-19-2023 End: 08-19-2023 Patient encounter procedure MD Yessenia Brannon Work Phone: [facility] Work Phone: Start: 08-09-2023 End: 08-09-2023 ambulatory MD Yessenia Brannon Work Phone: [facility] Work Phone: Start: 08-09-2023 End: 08-09-2023 Patient encounter procedure MD Yessenia Brannon Work Phone: [facility] Work Phone: Start: 07-20-2023 End: 07-20-2023 ambulatory MD Yessenia Brannon Work Phone: [facility] Work Phone: Start: 07-20-2023 End: 07-20-2023 Discharged Recurring MD Yessenia Brannon Work Phone: [facility] [place] Start: 07-20-2023 Registered Recurring MD Yessenia Brannon Work Phone: [facility] [place] Start: 07-07-2023 End: 07-07-2023 ambulatory MD Yessenia Brannon Work Phone: [facility] Work Phone: Start: 07-07-2023 End: 07-07-2023 Patient encounter procedure MD Yessenia Brannon Work Phone: [facility] Phys[facility] Work Phone: Start: 07-02-2023 End: 07-02-2023 Patient encounter procedure MD Yessenia Brannon Work Phone: [facility] [place] Work Phone: Start: 07-02-2023 End: 07-02-2023 ambulatory MD Yessenia Brannon Work Phone: [facility] Work Phone: Start: 06-29-2023 End: 06-29-2023 ambulatory CHARLES AGUDELO SR Facility:[facility] Start: 06-23-2023 End: 06-23-2023 ambulatory MD Yessenia Brannon Work Phone: [facility] Work Phone: Start: 06-23-2023 End: 06-23-2023 Patient encounter procedure MD Yessenia Brannon Work Phone: [facility] Work Phone: Start: 05-21-2023 ambulatory Della Izaguirre Research Coordinator Neurology Comment on above: An opportunity to pa rticipate in an important Epilepsy Center Research Study Start: 05-21-2023 E-mail encounter cliff m caregiver Della Izaguirre [facility] Coord[facility] Start: 05-11-2023 End: 05-11-2023 ambulatory Lynda Huff MD Work Phone: Neurology Comment on above: Encounter for monito ring long-term anticonvulsant therapy (Primary Dx); Nonintractable epilepsy with status epilepticus, unspecified epilepsy type (HCC); Subjective memory complaints Start: 05-11-2023 End: 05-11-2023 Telemedicine consultation with patient Lynda Huff MD Work Phone: [facility] Start: 03-09-2023 End: 03-09-2023 ambulatory CHARLES AGUDELO SR Facility:[facility] Start: 02-18-2023 Telephone encounter Lynda goldman MD Work Phone: Neurology Comment on above: Forms ([employer]) Start: 02-12-2023 (Televisit) Televisit Yessenia Brannon [facility] Start: 02-12-2023 End: 02-12-2023 ambulatory Yessenia Brannon Other [employer] Other Start: 02-02-2023 End: 02-02-2023 ambulatory Yessenia Brannon Other [employer] Other Start: 02-02-2023 Office outpatient ne w 45 minutes Yessenia Brannon [facility] Start: 01-29-2023 End: 01-29-2023 ambulatory Olesya Davis Other [facility] [employer] Other Start: 01-29-2023 Office outpatient vi sit 15 minutes Olesya Davis [facility] Start: 12-15-2022 End: 12-15-2022 ambulatory LYNDA HUFF Facility:[facility] Start: 11-11-2022 Telephone encounter Lynda goldman MD Work Phone: Neurology Comment on above: Outside Labs Results ([facility] ) Start: 10-31-2022 End: 10-31-2022 Patient encounter procedure DO Jammie Work Phone: [facility]Documentation Engineer [facility] Start: 10-31-2022 End: 10-31-2022 ambulatory DO Jammie Work Phone: [facility] Work Phone: Start: 10-22-2022 ambulatory Lynda Huff MD Work Phone: [facility] Start: 10-22-2022 Patient encounter procedure Lynda Huff MD Work Phone: Neurology Comment on above: Referral for communi ty mobility evaluation (driving) Start: 10-16-2022 Telephone encounter Lynda goldman MD Work Phone: Neurology Comment on above: Medication Authoriza tion ([employer]) Start: 10-09-2022 End: 10-10-2022 ambulatory P HOUSE SR Facility:[facility] Start: 09-15-2022 End: 09-15-2022 ambulatory P HOUSE SR Facility:[facility] Start: 07-14-2022 End: 07-14-2022 ambulatory P HOUSE SR Facility:[facility] Start: 07-07-2022 End: 07-07-2022 ambulatory P HOUSE SR Facility:[facility] Start: 04-24-2022 End: 04-24-2022 Patient encounter procedure Carline Kincaid MD Work Phone: Neurology Comment on above: Focal epilepsy with impairment of consciousness, intractable (HCC) (Primary Dx); Subjective memory complaints; Recurrent major depression in partial remission (HCC) Start: 04-23-2022 ambulatory Lynda Huff MD Work Phone: [facility] Start: 04-23-2022 Patient encounter procedure Lynda Huff MD Work Phone: Neurology Comment on above: Ed Romeo Seizure not es for appointment 04/24 Start: 04-08-2022 Telephone encounter Lynda goldman MD Work Phone: Neurology Comment on above: Forms ([facility]) Start: 04-01-2022 End: 04-01-2022 ambulatory Víctor Olexa Other [employer] Other Start: 04-01-2022 Postop follow up vis it related to original px Víctor Olexa [facility] Start: 02-27-2022 Refill Cristy garcia APRN.CNP Work Phone: Neurology Comment on above: Refill Request Start: 02-20-2022 End: 02-20-2022 ambulatory Víctor Olexa Other [employer] Other Start: 02-20-2022 Postop follow up vis it related to original px Víctor Olexa [facility] Start: 02-19-2022 ambulatory Lynda Huff MD Work Phone: Neurology Comment on above: Next in person visit Start: 02-12-2022 End: 02-12-2022 Admission to same day surgery center DO [place]ala Work Phone: [facility] [place] Start: 02-12-2022 End: 02-12-2022 ambulatory DO [place] Work Phone: [facility] Work Phone: Start: 02-11-2022 End: 02-11-2022 ambulatory Víctor Olexa Other [employer] Other Start: 02-11-2022 Telephone encounter Víctor Anne [facility] Start: 02-10-2022 End: 02-10-2022 ambulatory DO Charles Agudelo Work Phone: [facility] Work Phone: Start: 02-10-2022 End: 02-10-2022 Patient encounter procedure DO Charles Agudelo Work Phone: [facility]-Pre-Surgical Testing Start: 02-06-2022 Registered Recurring DO Larry Agudelo Work Phone: [facility]-Speech Therapy [facility] Start: 01-30-2022 End: 01-30-2022 ambulatory Lynda Huff MD Work Phone: Neurology Comment on above: Focal epilepsy with impairment of consciousness (HCC) (Primary Dx); Subjective memory complaints; Medication side effect; Nonintractable epilepsy with status epilepticus, unspecified epilepsy type (HCC) Start: 01-30-2022 End: 01-30-2022 Telemedicine consultation with patient Lynda Huff MD Work Phone: [facility] Start: 01-28-2022 End: 01-28-2022 Patient encounter procedure DO Charles Agudelo Work Phone: [facility]-Pre-Surgical Testing Start: 01-10-2022 ambulatory Lynda Huff MD Work Phone: [facility] Start: 01-10-2022 Patient encounter procedure Lynda Huff MD Work Phone: Neurology Comment on above: Next Virtual Appoint ment Start: 01-07-2022 End: 01-07-2022 ambulatory Víctor Anne Other [employer] Other Start: 01-07-2022 Office outpatient vi sit 25 minutes Víctor Anne [facility] Start: 01-02-2022 Telephone encounter Lynda goldman MD Work Phone: Neurology Comment on above: Forms ([facility] Start: 01-01-2022 End: 01-01-2022 ambulatory DO Charles Agudelo Work Phone: [facility] Work Phone: Start: 01-01-2022 End: 01-01-2022 Patient encounter procedure DO Charles Agudelo Work Phone: [facility]-MRI [address] Start: 12-31-2021 Registered Recurring DO Larry Agudelo Work Phone: [facility]-Speech Therapy [address] Start: 12-26-2021 End: 12-26-2021 ambulatory Víctor Anne Other [employer] Other Start: 12-26-2021 Office outpatient vi sit 25 minutes Víctor Anne [facility] Start: 12-26-2021 End: 12-26-2021 Patient encounter procedure DO Charles Agudelo Work Phone: [facility]-XRay [facility] Start: 12-06-2021 Telephone encounter Lynda goldman MD Work Phone: Neurology Comment on above: Forms ([facility]) Start: 12-02-2021 Orders Only Cristy Buckley ck INFORMATION SYSTEMS TECHNICIAN.PHARMACY OPERATIONS COORDINATOR Work Phone: [facility] Comment on above: Language difficulty (Primary Dx); Focal epilepsy with impairment of consciousness, intractable (HCC) Speech therapy Start: 11-25-2021 ambulatory Lynda Huff MD Work Phone: Neurology Comment on above: Ed's medication banda ge of Depakote Start: 11-21-2021 End: 11-21-2021 Telemedicine consultation with patient Lynda Huff MD Work Phone: [facility] Start: 11-21-2021 End: 11-21-2021 ambulatory Lynda Huff MD Work Phone: Neurology Comment on above: Speech Therapy Medication side effe ct (Primary Dx); Drug-induced tremor; Focal epilepsy with impairment of consciousness (HCC); History of status epilepticus; Subjective memory complaints; Tremor; Nonintractable epilepsy with status epilepticus, unspecified epilepsy type (HCC) Start: 11-21-2021 Patient encounter procedure Lynda Huff MD Work Phone: Neurology Comment on above: Appointment today Start: 11-18-2021 Telephone encounter Lynda goldman MD Work Phone: Neurology Comment on above: Outside Labs Results ([facility]) Start: 11-16-2021 End: 11-17-[address] CHARLES AGUDELO Facility:[facility] Start: 10-21-2021 Telephone encounter Lynda goldman MD Work Phone: Neurology Comment on above: Outside Labs Results ([facility]) Start: 10-19-2021 End: 10-20-[address] CHARLES AGUDELO Facility:[facility] Start: 10-01-2021 End: 10-01-2021 Telemedicine consultation with patient Lynda Huff MD Work Phone: [facility] Start: 10-01-2021 End: 10-01-2021 ambulatory Lynda Huff MD Work Phone: Neurology Comment on above: Ed Romeo bloodwork r equest Focal epilepsy with impairment of consciousness (HCC) (Primary Dx); Nonintractable epilepsy with status epilepticus, unspecified epilepsy type (HCC); Medication side effect; At risk for polypharmacy; Subjective memory complaints; History of status epilepticus Start: 09-27-2021 End: 09-27-[address] CHARLES AGUDELO Facility:[facility] Start: 09-24-2021 End: 09-24-2021 Patient encounter procedure Lynda Huff MD Work Phone: Neurology Comment on above: APPOINTMENT CANCELLE D (Primary Dx) Start: 09-24-2021 End: 09-24-2021 Telemedicine consultation with patient Lynda Huff MD Work Phone: [facility] Start: 09-06-2021 Refill Cristy garcia APRN.CNP Work Phone: Neurology Comment on above: Refill Request Start: 08-29-2021 End: 08-29-2021 [facility] M Merner INFORMATION SYSTEMS TECHNICIAN.PHARMACY OPERATIONS COORDINATOR Work Phone: Neurology Comment on above: Focal epilepsy with impairment of consciousness, intractable (HCC) (Primary Dx); Mood disorder due to known physiological condition with depressive features; Memory loss Start: 07-24-2021 Telephone encounter Charles Agudelo Work Phone: NOC Comment on above: Follow Up Phone Call ( Post Discharge F/U attempt made. No answer.) Start: 07-19-2021 Encounter for preprocedural laboratory examination DR DOCTOR ALEXANDRA [facility] Start: 07-17-2021 Refill Cristy garcia INFORMATION SYSTEMS TECHNICIAN.PHARMACY OPERATIONS COORDINATOR Work Phone: Neurology Comment on above: Refill Request Start: 07-15-2021 End: 07-16-[address] CHARLES AGUDELO Facility:[facility] Start: 07-15-2021 End: 07-16-2021 Encounter for preprocedural laboratory examination DR CHARLES AGUDELO Facility:[facility] Start: 07-05-2021 Telephone encounter Lynda goldman MD Work Phone: Neurology Comment on above: Orders Start: 07-04-2021 Chart abstracting Cristy wilkes INFORMATION SYSTEMS TECHNICIAN.PHARMACY OPERATIONS COORDINATOR Work Phone: Neurology Comment on above: Video EEG Monitoring Start: 07-03-2021 Telephone encounter Lynda goldman MD Work Phone: Neurology Comment on above: Orders (EMU admissio n) Outside Lab Results ([facility]) Start: 06-29-2021 End: 06-30-[address] CHARLES AGUDELO Facility:[facility] Start: 06-24-2021 (URG) Urgent Care Visit Rosemarie seymour [facility] Start: 06-24-2021 End: 06-24-2021 ambulatory Rosemarie Quintero Other [employer] Other Start: 06-24-2021 Telephone encounter Lynda goldman MD Work Phone: Neurology Comment on above: General (Physical co mplaints) Start: 06-04-2021 Refill Cristy garcia INFORMATION SYSTEMS TECHNICIAN.PHARMACY OPERATIONS COORDINATOR Work Phone: Neurology Comment on above: Refill Request Start: 03-14-[address] CHARLES AGUDELO Facili ty:[facility] Start: 03-13-2021 End: 03-13-2021 ambulatory Víctor Selby Other [employer] Other Start: 03-13-2021 Office outpatient vi sit 15 minutes Víctor Selby [facility] Start: 12-31-2020 End: 12-31-2020 ambulatory Rosemarie Garciaault Other [employer] Other Start: 12-31-2020 Office outpatient vi sit 15 minutes Rosemarie Leon [facility] Procedures Date Procedure Procedure Detail Performing Clinician Start: 07-02-2023 MRI of right shoulder Flori Brannon Work Phone: Start: 06-23-2023 Plain X-ray of right shoulder MD Yessenia Brannon Work Phone: Start: 02-12-2022 Procedure on shoulde r joint DO Bison Work Phone: Start: 01-01-2022 MRI of left shoulder DO Bison Work Phone: Start: 12-26-2021 Plain X-ray of left shoulder DO [facility] Work Phone: Start: 11-19-2021 Adult depression screening assessment Lynda Huff MD Work Phone: Start: 09-18-2021 Adult depression screening assessment Lynda Huff MD Work Phone: Start: 05-07-2021 Adult depression screening assessment Cristy Alatorre INFORMATION SYSTEMS TECHNICIAN.PHARMACY OPERATIONS COORDINATOR Work Phone: SARS Antigen (LFIA) DO [facility] Work Phone: Plan of Treatment Date Care Activity Detail Author Start: 09-28-2031 Urine microalbumin profile DTaP,Tdap,Td Vaccine (3 - Td or Tdap) [facility] Start: 07-18-2024 DIABETES SCREEN DIABETES SCREEN [facility] Start: 07-18-2024 Diabetes Screening Diabetes Screenin g [facility] Start: 10-19-2023 Patient referral [facility] Work Phone: Start: 06-23-2023 Plain X-ray of right shoulder XR shoulder RT min 2V* [facility] Start: 06-23-2023 XR Shoulder - right Views [facility] Start: 03-02-2023 Depression Assessment Depression Ass essment [facility] Start: 12-27-2022 Prostate specific antigen measurement Prostate Cancer Screening Discussion [facility] Start: 11-19-2022 Adult depression screening assessment DEPRESSION SCREENING [facility] Start: 10-31-2022 Covid-19 Vaccine () Covid-19 Vaccine () [facility] Start: 10-31-2022 Influenza vaccination [facility] Start: 09-18-2022 Adult depression screening assessment DEPRESSION SCREENING [facility] Start: 05-07-2022 Adult depression screening assessment DEPRESSION SCREENING [facility] Start: 03-02-2022 DEPRESSION ASSESSMENT DEPRESSION ASS ESSMENT [facility] Start: 02-12-2022 [facility] Start: 02-12-2022 [facility] Start: 10-31-2021 Influenza vaccination [facility] Start: 10-17-2021 COVID-19 VACCINE (4 - Booster for Pfizer series) COVID-19 VACCINE (4 - Booster for Pfizer series) [facility] Start: 10-03-2021 End: 12-03-2021 Valproate [Mass/volume] in Serum or Plasma VALPROIC A/DEPAKENE Lab Routine Focal epilepsy with impairment of consciousness (HCC) Expected: 10/03/2021, Expires: 12/03/2021 [facility] Work Phone: Comment on above: Expected: 10/03/2021 , Expires: 12/03/2021 Start: 08-12-2021 COVID-19 VACCINE (4 - Booster for Pfizer series) COVID-19 VACCINE (4 - Booster for Pfizer series) [facility] Start: 08-12-2021 COVID-19 VACCINE (4 - Pfizer series) COVID-19 VACCINE (4 - Pfizer series) [facility] Start: 07-30-2021 DIABETES SCREEN DIABETES SCREEN [facility] Start: 07-04-2021 End: 07-04-2022 SARS-CoV-2 (COVID-19) RNA [Presence] in Respiratory specimen by VALENCIA with probe detection PRE-PROCEDURE & PRE-OPERATIVE COVID Microbiology Routine Focal epilepsy with impairment of consciousness, intractable (HCC) Expected: 07/04/2021, Expires: 07/04/2022 [facility] Work Phone: Comment on above: Expected: 07/04/2021 , Expires: 07/04/2022 Start: 05-13-2021 COVID-19 VACCINE (3 - Booster for Pfizer series) COVID-19 VACCINE (3 - Booster for Pfizer series) [facility] Start: 03-02-2021 DEPRESSION ASSESSMENT DEPRESSION ASS ESSMENT [facility] Start: 12-27-2017 SHINGRIX VACCINE (1 of 2) SHINGRIX VACCINE (1 of 2) [facility] Start: 12-27-2012 COLOGUARD (FIT-DNA) COLOGUARD (FIT-D NA) [facility] Start: 12-27-2012 Colonoscopy COLONOSCOPY [facility] Start: 12-27-2012 COLORECTAL CANCER SCREENING COLORECTAL CANCER SCREENING [facility] Start: 12-27-[address] COLONOGRAPHY [facility] Start: 12-27-2012 FECAL OCCULT BLOOD FECAL OCCULT BLOO D [facility] Start: 12-27-2012 Screening for malign ant neoplasm of colon [facility] Start: 12-27-2012 SIGMOIDOSCOPY SIGMOIDOSCOPY [facility] Start: 12-27-2002 Lipid 1996 panel - S amy or Plasma Lipid Screening [facility] Start: 12-27-2002 Lipid panel Lipid Screening [facility] Start: 12-27-2002 LIPID SCREEN LIPID SCREEN [facility] Start: 12-27-1986 Hepatitis B Vaccine (1 of 3 - 19+ 3-dose series) Hepatitis B Vaccine (1 of 3 - 19+ 3-dose series) [facility] Start: 12-27-1986 Urine microalbumin profile [facility] Start: 12-27-1985 ANNUAL PCP TEAM DIP LUBE OPERATOR NATALYA DISEASE VISIT ANNUAL PCP TEAM CHRONIC DISEASE VISIT [facility] Start: 12-27-1985 BP CONTROLLED (<130/80) BP CONTROLLE D (<130/80) [facility] Start: 12-27-1985 HEPATITIS C SCREENING HEPATITIS [facility] Start: 12-27-1985 Hepatitis C screening Hepatitis C [facility] Start: 12-27-1985 HIV SCREENING HIV SCREENING [facility] Start: 12-27-1985 HIV screening HIV Screening [facility] Start: 1965 HEPATITIS B (1 of 3 - 3-dose series) HEPATITIS B (1 of 3 - 3-dose series) [facility] Start: 1965 Hepatitis B Vaccine (1 of 3 - 3-dose series) Hepatitis B Vaccine (1 of 3 - 3-dose series) [facility] End: 07-04-2022 EPIL EEG LEAD PLACEMENT EPIL EEG LEAD PLACEMENT NEUROLOGY Routine Focal epilepsy with impairment of consciousness, intractable (HCC) 1 Occurrences starting 07/04/2021 until 07/04/2022 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 strategies. For example, passwords are generally easier to recall if they are associated with a meaningful anniversary, name, or place. 4.) Rehearsal: All of the aforementioned strategies are improved with receptive mental practice. For example, audibly repeat a verbal mnemonic ten times. This serves to lengthen the duration of the memory encoding process and increase the likelihood that a given bit of information will be permanently stored. 5.) Multimodal input: In general, employing multiple sensory inputs (e.g. tactile, visual, audible, olfactory, motor, etc.) increase the strength of encoding and storing novel information. This technique also expands the range of potential cues that can be used to recall information. 6.) External memory devices: External devices to record important information, such as taking notes and using day production control planner and calendar, are also an important fail safe and should be utilized, particularly for important information. EEG long (04/24/2022, [facility]): Interictal: Intermittent Slow, Regional, left temporal greater than right temporal Video EEG (07/18/2021 to 07/19/2021, [facility]): Interictal: Intermittent Slow, Regional, Right Frontal Temporal Sharp Wave, Regional, Right and Left Frontal temporal (Right greater than Left) Ictal: EEG Seizure, Regional, Right Frontal Temporal No Clinical Signs -> Mouth Automotor Seizure Impression and Plan: This was a 3 day diagnostic video EEG evaluation from 07/18/2021 to 07/20/2021 is suggestive of right temporal lobe epilepsy. Interictal EEG revealed sharp waves and intermittent slowing arising from the right temporal region. The patient had a total of 5 automotor seizures arising from the right temporal and parietal head (T8/P8) region with sharp waves and rhythmic theta with intermixed spike and wave discharges over the right frontal temporal and parietal head regions. Clinically during the events the patient would swallow and have mouth movements with licking of lips. During SZ 2P, 3P, 4P the patient has his eyes open. During SZ 3P the patient does not respond to calling his name toward the end of the seizure. Home antiepileptic regimen consisted of Divalproex ER (Depakote ER) 500/750 6a/6p daily and Lacosamide (Vimpat) 300mg twice daily were maintained during the patients evaluation. On 07/20/2021 Lacosamide (Vimpat) was maintained, Valproic Acid (Depakene) was increased to 750 twice daily and Clobazam 5mg nightly at bedtime was added. Upon discharge Divalproex ER (Depakote ER) was increased to 750 mg BID and Clobazam 5 mg BID was added, and Lacosamide (Vimpat) 300mg was to be continued twice daily. MRI completed prior to discharge displayed No acute intracranial process. No abnormal intracranial enhancement. No apparent structural abnormality to suggest an epileptogenic focus. Symmetric size, signal, and morphology of the bilateral hippocampi.Seizure precautions reiterated and he was discharged to home in stable condition. He will follow-up in OP clinic with Dr. Huff. Neuropsych testing (07/18/2021, [facility]): SUMMARY: Mr. Paramjit Romeo is a 55-year-old, right-handed, , White, male with epilepsy who was referred for neuropsychological assessment to characterize current cognitive function in the context of reported memory decline. Interpretation of neuropsychological results are limited as Mr. Romeo performed well below expectation on stand alone measures of performance validity, indicating suboptimal test engagement. Therefore, results likely represent an underestimation of actual cognitive ability and impaired performances cannot be reliably interpreted. That said, Mr. Romeo performed within expectation on measures of working memory, processing speed, visuospatial skills, and aspects of memory. Regarding the latter, he was able to adequately learn and recall both visual designs and a word list. On mood inventories, he endorsed moderate symptoms of depression and minimal symptoms of anxiety. IMPRESSIONS: - Results of cognitive testing are NOT considered to be valid or interpretable given evidence of reduced test engagement during the present evaluation. As such, I am unfortunately unable to speak to the presence, severity, and/or pattern of Mr. Romeo's cognitive deficits. However, reassuringly, he demonstrated largely intact memory function even in light of test engagement concerns. RECOMMENDATIONS: 1) Cognitive Intervention: Although characterization of cognitive deficits is limited, given the reported functional difficulties reported by Mr. Romeo, speech therapy for cognitive intervention could be considered, particularly in regards to learning compensatory strategies for work. 2) Mood: Mr. Romeo reported significant depression that has worsened over time. Mood is likely contributing to day-to-day cognitive lapses. Discussion of mental health treatment options is encouraged. 3) Hearing Evaluation: Mr. Romeo reported reduced hearing, but has not had a recent hearing exam. Straining to hear can use additional cognitive resources and exacerbate cognitive difficulties; therefore, a referral for hearing evaluation is recommended. video EEG (07/30/2018 to 08/02/2018, [facility]): This four day video EEG evaluation from 07/30/18 to 08/02/18 was inconclusive. Medication (Lacosamide was reduced on day two of admission and discontinued on day three). No typical seizures were captured during this evaluation. Interictal EEG was within normal limits. MRI from outside hospital on 04/22/18 was within normal limits. Mr. Romeo was seen by psychiatry Dr. Nolasco and diagnosed with major depressive disorder and adjustment disorder. He was agreeable to start escitalopram oxalate 5mg at night. Given that his history was very concerning for epilepsy (recurrent convulsions, unprovoked), Lacosamide was restarted on the night prior to discharge at a dose of 200mg twice a day (higher than his admission dose of 150 mg twice daily). He will follow up with Dr. Huff his epileptologist on 01/20/19 via virtual visit. Routine EEG (04/21/2018, [facility]): CLINICAL INTERPRETATION: This is an abnormal electroencephalogram due to continuous slow generalized activity consistent with a moderate diffuse encephalopathy. Clinical correlation is required. 2 hour EEG ([facility], 01/20/2018): normal EEG (12/29/2017, [facility]): CLINICAL INTERPRETATION: This is a normal EEG for the patient's stated age. The underlying rhythm was within normal limits. There were no focal lateralizing or hemispheric features and no evidence of epileptiform activity. If patient continues to have events, an ambulatory EEG may be of benefit. Please correlate clinically. MRI Brain w/ & w/o contrast (04/21/2018, [facility]): IMPRESSION: 1) No acute intracranial abnormality. 2) No intracranial mass or abnormal enhancement. MRI Brain w/ & w/o contrast (12/29/2017, [facility]): IMPRESSION: No epileptogenic foci are identified. There is no mass or abnormal enhancement. No acute intracranial pathology. MRI brain with and without contrast (07/20/2021, [facility]): IMPRESSION: No acute intracranial process. No abnormal intracranial enhancement. No apparent structural abnormality to suggest an epileptogenic focus. Symmetric size, signal, and morphology of the bilateral hippocampi Other caregivers: Neurologist: Dr. Eleazar oBone ([facility]) Primary care: Charles Agudelo Sr, MD CURRENT MEDICATIONS: Current Outpatient Medications Medication Sig lacosamide (VIMPAT) 150 mg tab Take 2 tablets by mouth two times a day for 180 days. cloBAZam (ONFI) 10 mg tab tablet Take 1 tablet by mouth daily at bedtime for 180 days. sertraline (ZOLOFT) 50 mg tablet Take 1 tablet by mouth once daily. clonazePAM orally disintegrating (KLONOPIN WAFER) 0.5 mg disintegrating tablet Take 1 tablet as needed for prolonged seizure or cluster of seizures. Do not exceed more than 2 tablets per day. montelukast (SINGULAIR) 10 mg tablet Take 10 mg by mouth once daily. lisinopril-hydrochlorothiazide (PRINZIDE,ZESTORETIC) 20-12.5 mg per tablet Take 0.5 tablets by mouth once daily. Take a half tablet of 20-12.5 daily No current facility-administered medications for this visit. 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 There were no vitals taken for this visit. 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 Initially hypermotor/convulsive episodes in sleep; now with ?gustatory aura -> dialepsis. MRI normal. Repeat vEEG 2021 with right temporal seizures without much semiology at onset progressing to oral automatisms with bilateral (right > left frontotemporal interictal discharges) ; last seizure 06/2021 2) History of status epilepticus at initial presention possibly influenced by alcohol abuse - now in reported sustained remission of substance use disorder PLAN: - Continue lacosamide 300 mg BID (refill 6 months) - Continue clobazam 10 mg HS - (refill 6 months) PDMP website checked and validated. All prescriptions have been APPROPRIATELY filled. No suspicious activity was identified. 05/11/2023 by Lynda Huff MD Offered option to lower lacosamide dose stepwise to 200 mg BID and reassess but patient defers. - [email or web address] - Applauded abstinence with alcohol. - If clear clinical breakthrough seizure can consider increase of clobazam HS - Encouraged again to video record any episodes or symptoms of concern - Alternative medication such as trial of topiramate or perampanel (monitor psychiatric status) or cross over of lacosamide to oxcarbazepine or lamotrigine trial - Low threshold for home video EEG monitoring to assess seizure burden if unclear episodes recur. We have discussed the concept of medical intractability; and option of epilepsy surgical evaluation; PET, JW before PMC presentation if clinical seizures re-emerge - Applauded continued engagement with mental health. FOLLOW-UP: 6 months, sooner if issues. I spent a total of 22 minutes on the date of the service which included: preparing to see the patient [id number] patient care completing clinical documentation counseling and educating the patient/family/caregiver ordering medications, tests, or procedures Lynda Huff MD, MEd Staff Physician [facility] [address] [place] [address] Office cc: Primary Care Physician: Charles Agudelo Sr, MD [address] [place] [address] Referring: Lynda Huff [address] [place] [address] Patient: Mr. Paramjit Romeo [address] [place] [address] documented in this encounter [facility] 03-09-2023 Note HNO ID: [id number] Author: MIKEL HAMPTON MD Service: ? Author Type: Resident Type: Progress Notes Filed: 03/23/2023 15:26 Note Text: FOLLOW UP - PSYCHIATRIC PROGRESS NOTE Visit Type:Virtual Visit utilizing two-way audio and video for at least a portion of the visit. Consent for virtual visit obtained verbally. Confidentiality limitations with virtual visits reviewed with the patient and guardian, if present, who have accepted the risk verbally prior to proceeding with encounter. I have communicated my name and active licensure. The patient's identity and physical location were verified at the time of this visit. Either the patient or their legal congressional representative has been informed of the risks and benefits of -- and alternatives to -- treatment through a remote evaluation and consents to proceed with the evaluation remotely. Reason for Visit: Outpatient follow-up and safety monitoring of previously prescribed psychiatric medication, psychotherapy or other treatment CC: follow up HPI: DATE OF FIRST VISIT/HANDP: 05/21/22 DATE OF MOST RECENT VISIT: 09/15/22 - Continued zoloft unchanged Interval psych history: None per chart Interval Progress: Stable Doing good Nothing new, chugging along Lost his LALITHA over which was difficult Went to [place] to see his family over new years Is able to drive now without restrictions which results in better qol Drove to [place] with cousin in the car and did well, was happy about this Mood is good, anxiety really good Has one episode of anxiety when he was around a lot of people but was able to manage it No SI Work is going great Concentration really good, his boss has noticed a large improvement (stated he is back to the way he used to be ) Memory is improving, some short term issues but overall manageable (writing things down) Sleep is always good Has not had alcohol since September; drinks non-alcoholic Budweiser now and enjoys it Does not notice any side effects from medication Risks and benefits of the medication, including any black box warnings, were discussed with the patient. PATIENT DATA: Generalized Anxiety Disorder Scale (MAGUE-7) MAGUE - 7 SCORES 06/12/2022 09/08/2022 03/03/2023 MAGUE-7 Score 1 0 0 (0-4) minimal anxiety, (5-9) mild anxiety, (10-14) moderate anxiety, (15-21) severe anxiety Patient Health Questionnaire (PHQ-9) PHQ-9 06/12/2022 09/08/2022 03/03/2023 Score 2 0 0 (0-4) minimal depression, (5-9) mild depression, (10-14) moderate depression, (15-19) moderately severe depression, (20-27) severe depression PROMIS Global Health PROMIS Global Health - (T-Scores - the mean of general population = 50. 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 Current Outpatient Medications Medication Sig Dispense Refill sertraline (ZOLOFT) 50 mg tablet Take 1 tablet by mouth once daily. 90 tablet 0 lacosamide (VIMPAT) 150 mg tab Take 2 tablets by mouth two times a day for 180 days. 120 tablet 5 cloBAZam (ONFI) 10 mg tab tablet Take 1 tablet by mouth daily at bedtime for 180 days. 30 tablet 5 clonazePAM orally disintegrating (KLONOPIN WAFER) 0.5 mg disintegrating tablet Take 1 tablet as needed for prolonged seizure or cluster of seizures. Do not exceed more than 2 tablets per day. 10 tablet 0 montelukast (SINGULAIR) 10 mg tablet Take 10 mg by mouth once daily. lisinopril-hydrochlorothiazide (PRINZIDE,ZESTORETIC) 20-12.5 mg per tablet Take 0.5 tablets by mouth once daily. Take a half tablet of 20-12.5 daily No current facility-administered medications for this visit. ROS: GENERAL: Negative for malaise, significant weight loss and fever. GI: Negative for abdominal discomfort, abnormal stools. NEURO: Negative for headaches, syncope, seizures and paralysis. PFSH: PSYCHIATRIC HISTORY: Prior Diagnosis: MDD v. Adjustment disorder Prior Provider: Yes, saw Dr. 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 ECT: None Previous Discontinued Psychiatric Med Trials: Lexapro (took for 1 week, gave him a weird feeling so he self discontinued), depakote (for seizures, experienced tremors so this was tapered off), keppra (for seizures, experienced HI/violence towards boss) SUBSTANCE USE HISTORY: Tobacco: chewing tobacco regularly, has not smoked in 20+ years Caffeine: 2 pops/day + 4 cups coffee/day Alcohol: Previously 12 pack beer per day drinker but after seizure diagnosis he quit drinking for (more content not included)... [place] [id number] Miscellaneous Notes Completed form returned to [facility] via Docu-Sign Copy to Onbase Aleksandra Bowen RN Form received: From (agency / facility / parent): [employer] (if given): Paramjit Romeo JrTyrese Phone #: [phone] (home) Fax # : [phone] Email: Information requested: recommendation for comprehensive medication review Patient of Dr. huff documented in this encounter [facility] 02-12-2023 Evaluation note Encounter Date Diagnosis Assessment Notes Jan, Acute COVID-19 (ICD-10 - U07.1) Take med as prescribed. ER if symptoms worsen. Discussed OTC options for symptom managment. [employer] Other 12-04-2023 Evaluation note* Encounter Date Diagnosis Assessment Notes Treatment Notes Treatment Clinical Notes Jan, Dysfunction of both eustachian tubes (ICD-10 - H69.93) discussed nasal spray to improve his eustachian tubes. Jan, Gastric reflux (ICD-10 - K21.9) symptoms c/w reflux. 1 month trial of PPI Jan, Other fatigue (ICD-10 - R53.83) discussed differential - thyroid, mono, diabetes, anemia - complete labs when schedule permits. Jan, Essential (primary) hypertension (ICD-10 - I10) as above [employer] Other 11-30-2023 Evaluation note* Encounter Date Diagnosis Assessment Notes Treatment Notes Treatment Clinical Notes Dec, Acute sinusitis, unspecified (ICD-10 - J01.90) You were seen here today for your cough, purulent nasal congestion, sinus pressure, fullness in the ears, and productive cough with green phlegm. You are being diagnosed with a sinus infection and bronchitis. Take the antibiotic azithromycin as directed. Take the medrol dose pack as directed. Drink plenty of lfuids. Take tylenol and motrin as needed for fever or discomfort. Follow up with your primary care provider on Thursday as scheduled. Go to the ER if you develop chest pain, shortness of breath, pain with a deep breath, dizziness. Patient is a 57 yo male who present sot urgent care with complaints of fever, cough, congestion, purulent nasal drainage, sinus pressure and pain, and fatgiue for the past 3 weeks. Reports symptoms got better after a week then returned. DDX includes sinusitis of bacterial etiology, bronchitis, viral URI, pharyngitis. Patient exam positive for wheeze and rhonci, productive green yelloow/green phlegm and nasal discharge. States he took 2 covid tests at [facility] which were negative. Denies chest pain or dizziness. Plan to discharge patient home on z-hermann and medrol dose pack for sinus infection and bronchitis. FDollow up with PCP on thursday as scheduled and go to the ER if chest pain, shortness of breath, dizziness, pain with inspiration. Dec, Other specified bacterial agents as the cause of diseases classified elsewhere (ICD-10 - B96.89) Dec, Acute bronchitis, unspecified organism (ICD-10 - J20.9) [employer] Other 10-16-2023 NoteHNO ID: [id number] Author: Lynda Huff MD Service: ? Author Type: Physician Type: Progress Notes Filed: 12/15/2022 8:44 AM Note Text: [facility] [place] [facility] Patient Name: Paramjit Romeo Jr. Date of : 1965 FOLLOW-UP EPILEPSY - VIRTUAL VISIT December 15, 2022 at 8:22 AM CHIEF COMPLAINT: seizures / epilepsy Last seen in Epilepsy Department: 07/07/2022 by myself (Lynda Huff MD) CLINICAL SUMMARY: Mr. Romeo is a 56-year-old right-handed man followed at [facility] outpatient clinic for further management of seizures. Originally established with me in 06/2018 as a self-referral. I have communicated my name and active licensure. The patient's identity and physical location were verified at the time of this visit. Either the patient or their legal congressional representative has been informed of the risks and benefits of -- and alternatives to -- treatment through a remote evaluation and consents to proceed with the evaluation remotely. INTERIM HISTORY: Really turned a corner spring 2022 after starting Zoloft, still taking; engaged in mental health No seizures, no episodes. Cognitive concerns improved; was able to complete formal neuropsych eval and no deficits (details below) Cleared OT driving assessment - now back to driving. Short distances. Back to work He and continue to be grateful and happy with quality of life turn around Late 2021, had multiple unclear 'bad days' that had presumed might be seizures but in retrospect were unclear. By description sounded more like depressive symptoms, had been resistant to seek mental health evaluation due to prior experiences. Last clear seizure was 06/2021. EEG showed no epileptiform activity. Reports not drinking much alcohol at all. Reports continued good compliance with medications. 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 52th birthday was day before, binge drinking and was totally wasted . Was drinking regularly at baseline (3-4 cases of beer per week). Never gets hang over usually but didn't feel well that morning and thought it was just what he had been drinking. Was freezing , felt confused, getting chill. Was working. Kept telling son I just don't feel good. 5-10 minutes after leaving, found him down; arms were moving/shaking, got boss and called EMS; last thing remembers getting out of truck. Taken to [facility] and was back to baseline by arrival, basic workup was unremarkable. Referred to neurologist. Went home and was with two sons, man I just don't feel right . Thought it was just all he had drank. No other specific symptoms. Four hours later, had two more convulsions, witnessed by family. Report he said he wasn't feeling like himself but didn't note other symptoms and immediately fell and started convulsing. They did not note lateralizing signs. There was blood everywhere (laceration on nose with fall). They report after he had deep sleep, stertorous snoring like a rattle . He was coming back and then 1-2 minutes later had a second one. Called EMS and went to [facility] this time. Because of having 3 seizures in the same day, was admitted. MRI, EEG were normal. Seen inpatient with neurology. Reports an orgasm in the ED after the seizure (per while he was still confused) + tongue bite On 04/13/2018 sent home from work for [employer] rage endorse homicidal ideation towards his boss which was very out of character. He was stopped immediately and started on lacosamide 50 mg BID. Next seizure was a week later on 04/21/2018 - family was home with niece, son; 1030 pm went to bed; woke up 3 days later from his perspective. Around 8 am he was found unresponsive in respiratory distress in his bed. ( was out of town) They feel the seizure had to have occurred before 5 am because otherwise he would have been out of bed (always gets up and would never have gone back to bed per their rationale). He was covered in emesis, incontinent, pinpoint pupils per notes. Patient was intubated but unclear if on scene or in ED. He was agitated in the ED per but was reported also to be breathing 2 x per minute. reports he was put in an induced coma but not for subsequent seizure activity but for agitation and to protect his lungs in the context of aspiration pneumonia. + tongue bite; no EEG was done per during that admission. He woke up when they removed sedation. Initially had gotten some levetiracetam and was then increased to l (more content not included)...[facility]09-13-2023 Miscellaneous Notes* Telephone Encounter - Aleksandra Bowen RN - 11/12/2022 12:30 PM EDT Per patient/spouse will review/discuss w/Dr Huff during VV of 12/15/2022 Aleksandra Bowen RN * Telephone Encounter - Aleksandra Bowen RN - 11/11/2022 11:36 AM EDT Images from the original note were not included. Lab collected per Dr. Huff's recommendation Current ASM: LCM 300 mg BID CLB 10 mg @ HS Mychart to patient Aleksandra Bowen RN * Telephone Encounter - Little Ortega - 11/11/2022 11:31 AM EDT OUTSIDE LAB REPORT FACILITY NAME [facility] PHONE/FAX [phone] COLLECTION DATE AND TIME: 11/07/2022 0642 Uploaded to [employer] [facility] Miscellaneous Notes* Telephone Encounter - Aleksandra Bowen RN - 10/22/2022 12:34 PM EDT Spoke twyla/[id number] pharmacy - she will process prescription and notify patient Aleksandra Bowen RN * Telephone Encounter - Tammy Martin - 10/22/2022 12:28 PM EDT Received approval for Clobazam from [employer]. Approval Dates: 10/22/22-10/22/23. REF #: none given Approval uploaded to [employer]. * Telephone Encounter - Aleksandra Bowen RN - 10/20/2022 9:21 AM EDT Spoke twyla/Salena Garcia - PA under clinical review Will await determination Aleksandra Bowen RN * Telephone Encounter - Aleksandra Bowen RN - 10/17/2022 10:39 AM EDT Spoke w/[facility] - additional clinical documentation requested Requested information submitted Will await determination Aleksandra Bowen RN * Telephone Encounter - Pennie Dominguez RN - 10/16/2022 10:23 AM EDT Form completed and routed to Dr. Huff for signature thru docusign. One copy faxed to [employer] [phone] One copy faxed to onbase Pennie Dominguez RN * Telephone Encounter - Little Ortega - 10/16/2022 8:41 AM EDT Prior Authorization Needed: Received by: Fax Requested by (pharmacy name): [facility] Phone number: [phone] Name of medication: Clobazam Strength and dosage: 10 mg Take 1 tablet by mouth daily at bedtime for 180 days. Insurance company name and phone #: [employer] PCN #: BIN#: Group #: Patient of Dr. Huff documented in this encounter[facility] Miscellaneous Notes* Telephone Encounter - Aleksandra Bowen RN - 10/22/2022 10:58 AM EDT See previous [employer] message addressing patient request Aleksandra Bowen RN documented in this encounterPark[facility]08-10-2023 NoteHNO ID: [id number] Author: Zak Mercado, PhD Service: ? 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 Paramjit Romeo is a 56-year-old, right-handed, , White, male with epilepsy who was referred for repeat neuropsychological assessment to characterize current cognitive function. His previous evaluation was invalid due to low test engagement, which was ultimately attributed to significant mood symptoms at the time. Since his first evaluation, his mood has significantly improved and he has noticed subsequent improvement in cognition and functional status, but still continues to have mild cognitive concerns. Results from this neuropsychological evaluation suggest that Mr. Romeo's longstanding general level of ability has likely been in the low average to average range. Within that context, he demonstrated mildly reduced novel problem solving, primarily due to difficulty with accurate task conceptualization. Otherwise, performance was commensurate with premorbid function. He demonstrated relative strengths related to processing speed and verbal memory. On mood inventories, he endorsed minimal symptoms of depression and anxiety. IMPRESSIONS: - Neuropsychological evaluation revealed largely intact cognition function, aside from one mild inefficiency related to executive function. Overall, his cognitive profile does not indicate any localized or lateralized cognitive dysfunction. - Consistent with his self report, Mr. Romeo appears to be doing much better after being treated for his mood symptoms. His ongoing cognitive lapses most likely reflect normal age-related changes, as well as variability based on day-to-day fluctuations in chronic pain, mood symptoms (e.g., elevated stress), and occasional marijuana use. Very Superior Superior High Average X X Average X X X X X X X Low Average X X X X Moderately Low X Extremely Low Estimated Premorbid Ability Attention/ Working Memory Processing Speed Language Visuo- spatial Executive Function Verbal Memory Visual Memory This table should not be presented separate from the Neuropsychological Evaluation Report dated 10/09/2022. RECOMMENDATIONS: 1) Driving: Reassuringly, there are no concerns from a cognitive standpoint about Mr. Romeo's return to driving as his performance on measures that evaluate similar cognitive resources required for navigating traffic were at or above expectation. However, a formal driving evaluation is still the best method to assessing driving safety. Mrs. Romeo had questions about where to have this formal driving evaluation and I informed her that [facility] offers this service. If Dr. Huff recommends this evaluation, a referral for Occupational Therapy Driving Evaluation can be placed. 2) Brain Health: Mr. Romeo is encouraged to maintain a healthy lifestyle, which may be beneficial to his brain. Specifically, he is encouraged to remain as active as possible, engaging in physical and mental exercise. General guidelines recommend a minimum of 30 minutes of aerobic activity at least three times per week, with physician approval. Balanced nutrition is also important; the Mediterranean diet and antioxidant-rich foods are recommended. 3) Memory Strategies: Although Mr. Guevaras memory is intact based on cognitive testing, day-to-day memory lapses are common. The following are memory strategies that he is encouraged to use: 1.) Semantic clustering: This strategy involves grouping words or bits of information into meaningful chunks or categories. For example, breaking a long string of numbers (e.g., phone or pin number) into two or three units. Another example is segregating a twenty-item to-do list into three or four smaller categories (e.g., work related, household, family, etc.). In turn, this helps to organize information and increases the likelihood of creating associations or cues, which can also aid in later retrieval. 2.) Verbal mnemonics: These are commonly used memory aids such as acronyms, rhymes, or short stories that help to enrich the memorized information with additional cues. For example, in the medical field the acronym ?ABC? is commonly used as a retrieval cue that prompts someone to check a patient?s airway, breathing, and circulation. 3.) Emotional cues: Selecting emotionally salient verbal or visual cues, which tend to be easier to recall, can reinforce the aforementioned strategies. For example, passwords are generally easier to recall if they are associated with a meaningful annive (more content not included)...[facility]07-17-2023 NoteHNO ID: [id number] Author: Chau Taveras MD Service: ? Author Type: Resident Type: Progress Notes Filed: 09/22/2022 2:41 PM Note Text: FOLLOW UP - PSYCHIATRIC PROGRESS NOTE Visit Type:Virtual Visit utilizing two-way audio and video for at least a portion of the visit. Consent for virtual visit obtained verbally. Confidentiality limitations with virtual visits reviewed with the patient and guardian, if present, who have accepted the risk verbally prior to proceeding with encounter. I have communicated my name and active licensure. The patient's identity and physical location were verified at the time of this visit. Either the patient or their legal congressional representative has been informed of the risks and benefits of -- and alternatives to -- treatment through a remote evaluation and consents to proceed with the evaluation remotely. Reason for Visit: Outpatient follow-up and safety monitoring of previously prescribed psychiatric medication, psychotherapy or other treatment CC: follow up HPI: DATE OF FIRST VISIT/HANDP: 05/21/22 DATE OF MOST RECENT VISIT: 06/17/22 - Continued zoloft unchanged Interval psych history: None per chart Interval Progress: Stable Tests scheduled next month to see if he can start driving Doing really well Anxiety and mood is stable, no racing thoughts Had one episode of irritability a few weeks ago Jamaal has noticed a difference in mood/attitude as well No SI Concentration really good Memory is slowly improving Sleep is good Still drinking 1-2 beers every once in awhile Does not notice any side effects from medication Risks and benefits of the medication, including any black box warnings, were discussed with the patient. PATIENT DATA: Generalized Anxiety Disorder Scale (MAGUE-7) MAGUE - 7 SCORES 05/21/2022 06/12/2022 09/08/2022 MAGUE-7 Score 13 1 0 (0-4) minimal anxiety, (5-9) mild anxiety, (10-14) moderate anxiety, (15-21) severe anxiety Patient Health Questionnaire (PHQ-9) PHQ-9 05/21/2022 06/12/2022 09/08/2022 Score 14 2 0 (0-4) minimal depression, (5-9) mild depression, (10-14) moderate depression, (15-19) moderately severe depression, (20-27) severe depression PROMIS Global Health PROMIS Global Health - (T-Scores - the mean of general population = 50. 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 Current Outpatient Medications Medication Sig Dispense Refill lacosamide (VIMPAT) 150 mg tab Take 2 tablets by mouth twice daily for 180 days. 120 tablet 5 cloBAZam (ONFI) 10 mg tab tablet Take 1 tablet by mouth daily at bedtime for 180 days. 30 tablet 5 sertraline (ZOLOFT) 50 mg tablet Take 1 tablet by mouth once daily. 90 tablet 0 clonazePAM orally disintegrating (KLONOPIN WAFER) 0.5 mg disintegrating tablet Take 1 tablet as needed for prolonged seizure or cluster of seizures. Do not exceed more than 2 tablets per day. 10 tablet 0 montelukast (SINGULAIR) 10 mg tablet Take 10 mg by mouth once daily. lisinopril-hydrochlorothiazide (PRINZIDE,ZESTORETIC) 20-12.5 mg per tablet Take 0.5 tablets by mouth once daily. Take a half tablet of 20-12.5 daily No current facility-administered medications for this visit. ROS: GENERAL: Negative for malaise, significant weight loss and fever. GI: Negative for abdominal discomfort, abnormal stools. NEURO: Negative for headaches, syncope, seizures and paralysis. PFSH: PSYCHIATRIC HISTORY: Prior Diagnosis: MDD v. Adjustment disorder Prior Provider: Yes, saw Dr. 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 ECT: None Previous Discontinued Psychiatric Med Trials: Lexapro (took for 1 week, gave him a weird feeling so he self discontinued), depakote (for seizures, experienced tremors so this was tapered off), keppra (for seizures, experienced HI/violence towards boss) SUBSTANCE USE HISTORY: Tobacco: chewing tobacco regularly, has not smoked in 20+ years Caffeine: 2 pops/day + 4 cups coffee/day Alcohol: Previously 12 pack beer per day drinker but after seizure diagnosis he quit drinking for 1.5 years; now only drinks 1-2 beers at dinner once per month or less (can go 2-3 months without any beer) Marijuana: very occasionally, less than once weekly to help him relax after a stressful day Cocaine: No history of use or dependence Opioids: No history of use or dependence SPIRITUALITY: None PFSH: Paramjit Romeo Jr. has 6 older half-siblings: 3 older half bro (more content not included)...[facility]05-08-2023 NoteHNO ID: [id number] Author: Lynda Huff MD Service: ? Author Type: Physician Type: Progress Notes Filed: 07/07/2022 6:34 PM Note Text: [facility] Patient Name: Paramjit Romeo Jr. Date of : 1965 FOLLOW-UP EPILEPSY - VIRTUAL VISIT July 07, 2022 at 8:09 AM CHIEF COMPLAINT: follow up on seizure Last seen in Epilepsy Department: 01/30/2022 by myself (Lynda Huff MD) CLINICAL SUMMARY: Mr. Romeo is a 56-year-old right-handed man followed at [facility] outpatient clinic for further management of seizures. Originally established with me in 06/2018 as a self-referral. INTERIM HISTORY: Started at zoloft 50 mg in April and really has felt a difference. They are really happy with the quality of life turn around is no longer even keeping a journal of episodes and concerns, which is quite a remarkable difference! Still some cognitive concerns but not as much as before; has been able to return to work. Would like to return to driving. No seizure concerns (previously had multiple unclear 'bad days' that had presumed might be seizures but in retrospect were unclear. Last clear seizure was 06/2021. By description sounded more like depressive symptoms, had been resistant to seek mental health evaluation due to prior experiences. EEG showed no epileptiform activity. Was finally open and had much better rapport with Dr. Taveras and team. No episodes with loss of consciousness or convulsions; no concern for seizures. Doing great Reports not drinking much alcohol at all. Reports continued good compliance with medications. 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 52th birthday was day before, binge drinking and was totally wasted . Was drinking regularly at baseline (3-4 cases of beer per week). Never gets hang over usually but didn't feel well that morning and thought it was just what he had been drinking. Was freezing , felt confused, getting chill. Was working. Kept telling son I just don't feel good. 5-10 minutes after leaving, found him down; arms were moving/shaking, got boss and called EMS; last thing remembers getting out of truck. Taken to [facility] and was back to baseline by arrival, basic workup was unremarkable. Referred to neurologist. Went home and was with two sons, man I just don't feel right . Thought it was just all he had drank. No other specific symptoms. Four hours later, had two more convulsions, witnessed by family. Report he said he wasn't feeling like himself but didn't note other symptoms and immediately fell and started convulsing. They did not note lateralizing signs. There was blood everywhere (laceration on nose with fall). They report after he had deep sleep, stertorous snoring like a rattle . He was coming back and then 1-2 minutes later had a second one. Called EMS and went to [facility] this time. Because of having 3 seizures in the same day, was admitted. MRI, EEG were normal. Seen inpatient with neurology. Reports an orgasm in the ED after the seizure (per while he was still confused) + tongue bite On 04/13/2018 sent home from work for [employer] rage endorse homicidal ideation towards his boss which was very out of character. He was stopped immediately and started on lacosamide 50 mg BID. Next seizure was a week later on 04/21/2018 - family was home with niece, son; 1030 pm went to bed; woke up 3 days later from his perspective. Around 8 am he was found unresponsive in respiratory distress in his bed. ( was out of town) They feel the seizure had to have occurred before 5 am because otherwise he would have been out of bed (always gets up and would never have gone back to bed per their rationale). He was covered in emesis, incontinent, pinpoint pupils per notes. Patient was intubated but unclear if on scene or in ED. He was agitated in the ED per but was reported also to be breathing 2 x per minute. reports he was put in an induced coma but not for subsequent seizure activity but for agitation and to protect his lungs in the context of aspiration pneumonia. + tongue bite; no EEG was done per during that admission. He woke up when they removed sedation. Initially had gotten some levetiracetam and was then increased to lacosamide 100 mg BID which he was discharged on. Small seizure 06/09/2018 - Woke up in the night at 4 am trying to get the CPAP off, sweating profusely arms moving, went into (more content not included)...[facility]02-23-2023 History of Present illness Narrative* Lynda Huff MD - 04/24/2022 12:30 PM EST [facility] Patient Name: Paramjit Romeo Jr. Date of : 1965 FOLLOW-UP EPILEPSY April 24, 2022 at 1230 CHIEF COMPLAINT: brain fog, possible seizures Last seen in Epilepsy Department: 01/30/2022 by myself (Lynda Huff MD) CLINICAL SUMMARY: Mr. Romeo is a 56-year-old right-handed man followed at [facility] outpatient[facility]inic for further management of seizures. Originally established with me in 06/2018 as a self-referral. INTERIM HISTORY: Patient's notes in interim are summarized with quotes here At last visit we weaned rest of valproate 02/03/22: 4th day of decreasing Depakote. Foggy and not feeling right when wakes up. Went to work and came home at noon. Couldn't function. Slept from Noon- 4:30pm. Hands shaking a lot at dinner. Difficulty holding a fork. 02/09/22: In and out of bed all day. Not feeling well. 02/10/22: Seizure Slept most of the day. Not feeling well. I went away for the weekend, and determined he was not feeling well because he forgot to take his night pills on Thursday/Thursday/Thursday. He could not remember when he filled his pill case. 02/11/22: Last day worked. 02/15/22. Removed Depakote. 02/21/22: Improvement in shakes of hands. Still has some but minimal. 03/17-03/18/22: Seizure Think he might have had a silent seizure. Had the symptoms of having one for two days. Not able to function, exhausted, slept most of both days, no energy, fogginess. 03/18/22: Speech therapy. Still not able to apply at home what was learning there. We tried the speech therapy for 3 months with little to no improvement so will not continue. There has not been any improvement in 3 months. He still continues to not be able to remember things from conversations earlier in the day or things we talked about the day before etc. 04/02-04/04/22: Seizure Most likely had a silent seizure. Had no energy and fogginess. Slept most the day for 3 days. 04/07/22 Seizure Groggy tired and not able to function. Same symptoms as if he had a seizure. Slept most of the day. Could not follow simple instructions. I put a sticky note on each ingredient for a recipe. Very simple: Use this can for hamburger mixture. Use this can for the topping of the green peppers. He put both cans in the mixture. 04/08/22 I called Rossy, the speech therapist regarding my frustration with Ed and blaming him fornot following thru on his homework and applying the techniques learned during the sessions. Rossy has indicated Ed has been improving during the sessions. My concern is that he can remember, follow instructions when one on one but cannot transfer to everyday tasks. When doing the exercises at home, Ed was memorizing the information but able to apply the technique. I thought the therapy was going to be immediate and see drastic improvement. Only to see little to none since started in November 2021. (4 months). We have decided to discontinue speech therapy since creating lots of frustration with no improvement of transferring items learned during the sessions to everyday life/tasks. 04/11/22 Seizure At our nephew's basketball game, Ed started seeing flashing lights, was dizzy and sweating. 04/12/22 Cooked lunch and forgot to turn off the stove. 04/20/22 Seizure We had the grandkids overnight. Ed was not feeling well and slept from 10am-noon. This is very unusual. He would never miss time with his grandkids which bring him such abran. He then slept most of the afternoon and did not feel right. Most likely had a seizure last night. In the morning significant hand tremors and not able to drink a cup of coffee. 04/23/22 Seizure In the middle of the night, Ed was soaking wet along with the sheets, comforter, and pillows. I got a towel to dry things off. He doesn't remember this. In the morning he did not feelright. He was up for an hour then went back to bed. 04/24/22 After the doctor visit tomorrow, Ed will contact his employer to see if open to him returning to work. Will advise of his decline in short term memory and silent seizures he has had in two months. When Ed has seizures, he cannot physically do anything for 1 to 2 days. 7 seizures in the last2 months. ------- No habitual clinical seizures have been witnessed of note since 06/2021. There is some concern that seizures are missed as above but this is based on 'good and bad days'; on discussion it is not clearif this could not be in part attributed ot depression. There have been no matt periods of unresponsiveness. EEG long today without matt epileptiform activity. Before weaning the valproate - patient and were adament that the valproate had dramatically worsened quality of life; in retrospect after removal, they report no major clinical changes. It is notable that it is not cleare there has been any breakthrough seizure; only clear improvement is perhaps tremor is better though, this is described as 'shaking' and is intermittent. They were unable to document on video for review yet as requested. No automotor or convulsive events. Reports not drinking much alcohol at all. See neuropsych report (inconclusive due to engagement) - his biggest continued concern is cognitive. He has quit ST due to lack of perceived benefit. Rare beer use. Reports good compliance with medications. 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 52th birthday was day before, binge drinking and was totally wasted . Was drinking regularly at baseline (3-4 cases of beer per week). Never gets hang over usually butdidn't feel well that morning and thought it was just what he had been drinking. Was freezing , felt confused, getting chill. Was working. Kept telling son I just don't feel good. 5-10 minutes afte r leaving, found him down; arms were moving/shaking, got boss and called EMS; last thing remembers getting out of truck. Taken to [facility] ED and was back to baseline by arrival, basic workup was unremarkable. Referred to neurologist. Went home and was with two sons, man I just don't feel right . Thought it was just all he had drank. No other specific symptoms. Four hours later, had two more convulsions, witnessed by family. Report he said he wasn't feeling like himself but didn't note other symptoms and immediately fell and started convulsing. They did not note lateralizing signs. There was blood everywhere (laceration on nose with fall). They report after he had deep sleep, stertorous snoring like a rattle . He was coming back and then 1-2 minutes later had a second one. Called EMS and went to [facility] this time. Because of having 3 seizures in the same day, was admitted. MRI,EEG were normal. Seen inpatient with neurology. Reports an orgasm in the ED after the seizure (per while he was still confused) + tongue bite On 04/13/2018 sent home from work for [employer] rage endorse homicidal ideation towards his boss which was very out of character. He was stopped immediately and started on lacosamide 50 mg BID. Next seizure was a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 Interictal EEG revealed sharp waves and intermittent slowing arisingfrom the right temporal region. The patient had a total of 5 automotor seizures arising from the right temporal and parietal head (T8/P8) region with sharp waves and rhythmic theta with intermixed spike and wave discharges over the right frontal temporal and parietal head regions. Clinically duringthe events the patient would swallow and have mouth movements with licking of lips. During SZ 2P, 3P, 4P the patient has his eyes open. During SZ 3P the patient does not respond to calling his name toward the end of the seizure. Home antiepileptic regimen consisted of Divalproex ER (Depakote ER) 500/750 6a/6p daily and Lacosamide (Vimpat) 300mg twice daily were maintained during the patientsevaluation. On 07/20/2021 Lacosamide (Vimpat) was maintained, Valproic Acid (Depakene) was increasedto 750 twice daily and Clobazam 5mg nightly at bedtime was added. Upon discharge Divalproex ER (Depakote ER) was increased to 750 mg BID and Clobazam 5 mg BID was added, and Lacosamide (Vimpat) 300mgwas to be continued twice daily. MRI completed prior to discharge displayed No acute intracranial process. No abnormal intracranial enhancement. No apparent structural abnormality to suggest an epileptogenic focus. Symmetric size, signal, and morphology of the bilateral hippocampi.Seizure precautions reiterated and he was discharged to home in stable condition. He will follow-up in OP clinic withDr. Huff. Neuropsych testing (07/18/2021, [facility]): SUMMARY: Mr. Paramjit Romeo is a 55-year-old, right-handed, , White, male with epilepsy who was referred for neuropsychological assessment to characterize current cognitive function in the context of reported memory decline. Interpretation of neuropsychological results are limited as Mr. Romeo performed well below expectation on stand alone measures of performance validity, indicating suboptimal test engagement. Therefore, results likely represent an underestimation of actual cognitive ability and impaired performances cannot be reliably interpreted. That said, Mr. Romeo performed within expectation on measures of working memory, processing speed, visuospatial skills, and aspects of memory. Regarding the latter, he was able to adequately learn and recall both visual designs and a word list. On mood inventories, he endorsed moderate symptoms of depression and minimal symptoms of anxiety. IMPRESSIONS: - Results of cognitive testing are NOT considered to be valid or interpretable given evidence of reduced test engagement during the present evaluation. As such, I am unfortunately unable to speak to the presence, severity, and/or pattern of Mr. Romeo's cognitive deficits. However, reassuringly, he demonstrated largely intact memory function even in light of test engagement concerns. RECOMMENDATIONS: 1) Cognitive Intervention: Although characterization of cognitive deficits is limited, given the reported functional difficulties reported by Mr. Romeo, speech therapy for cognitive intervention could be considered, particularly in regards to learning compensatory strategies for work. 2) Mood: Mr. Romeo reported significant depression that has worsened over time. Mood is likely contributing to day-to-day cognitive lapses. Discussion of mental health treatment options is encouraged. 3) Hearing Evaluation: Mr. Romeo reported reduced hearing, but has not had a recent hearing exam. Straining to hear can use additional cognitive resources and exacerbate cognitive difficulties; therefore, a referral for hearing evaluation is recommended. video EEG (07/30/2018 to 08/02/2018, [facility]): This four day video EEG evaluation from 07/30/18 to 08/02/18 was inconclusive. Medication (Lacosamide was reduced on day two of admission and discontinued on day three). No typical seizures were captured during this evaluation. Interictal EEG was within normal limits. MRI from outside hospital on 04/22/18 was within normal limits. Mr. Romeo was seen by psychiatry Dr. Nolasco and diagnosed with major depressive disorder and adjustment disorder. He was agreeable to start escitalopram oxalate 5mg at night. Given that his history was very concerning for epilepsy (recurrent convulsions, unprovoked), Lacosamide was restarted on the night prior to discharge at adose of 200mg twice a day (higher than his admission dose of 150 mg twice daily). He will follow upwith Dr. Huff his epileptologist on 01/20/19 via virtual visit. Routine EEG (04/21/2018, [facility]): CLINICAL INTERPRETATION: This is an abnormal electroencephalogram due to continuous slow generalized activity consistent with a moderate diffuse encephalopathy. Clinical correlation is required. 2 hour EEG ([facility], 01/20/2018): normal EEG (12/29/2017, [facility]): CLINICAL INTERPRETATION: This is a normal EEG for the patient's stated age. The underlying rhythm was within normal limits. There were no focal lateralizing or hemispheric features and no evidence of epileptiform activity. If patient continues tohave events, an ambulatory EEG may be of benefit. Please correlate clinically. MRI Brain w/ & w/o contrast (04/21/2018, [facility]): IMPRESSION: 1) No acute intracranial abnormality. 2) No intracranial mass or abnormal enhancement. MRI Brain w/ & w/o contrast (12/29/2017, [facility]): IMPRESSION: No epileptogenic foci are identified. There is no mass or abnormal enhancement. No acute intracranial pathology. MRI brain with and without contrast (07/20/2021, [facility]): IMPRESSION: No acute intracranial process. Noabnormal intracranial enhancement. No apparent structural abnormality to suggest an epileptogenic focus. Symmetric size, signal, and morphology of the bilateral hippocampi Other caregivers: Neurologist: Dr. Eleazar Boone ([facility]) Primary care: Charles Agudelo Sr, MD CURRENT MEDICATIONS: Current Outpatient Medications Medication Sig VIMPAT 200 mg TAKE 1 AND 1/2 TABLETS BY MOUTH TWICE A DAY cloBAZam (ONFI) 10 mg tab tablet 0.5 tablets by ORAL/FEEDING TUBE route twice daily. divalproex ER (DEPAKOTE ER) 250 mg 24 hr tablet Take 3 tablets by mouth twice daily. divalproex ER (DEPAKOTE ER) 250 mg 24 hr tablet Take 3 tablets by mouth twice daily. Dose increase.Fill this RX when patient due for refill. Thanks. clonazePAM orally disintegrating (KLONOPIN WAFER) 0.5 mg disintegrating tablet Take 1 tablet as needed for prolonged seizure or cluster of seizures. Do not exceed more than 2 tablets per day. montelukast (SINGULAIR) 10 mg tablet Take 10 mg by mouth once daily. lisinopril-hydrochlorothiazide (PRINZIDE,ZESTORETIC) 20-12.5 mg per tablet Take 0.5 tablets by mouth once daily. Take a half tablet of 20-12.5 daily No current facility-administered medications for this visit. 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 There were no vitals taken for this visit. 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 Initially hypermotor/convulsive episodes in sleep; now with ?gustatory aura -> dialepsis. MRI normal. Repeat vEEG 2021 with right temporal seizures without much semiology at onset progressing to oral automatisms with bilateral (right > left frontotemporal interictal discharges) 2) History of status epilepticus at initial presention possibly influenced by alcohol abuse - now in sustained remission PLAN: - Change clobazam to 10 mg at night - decrease divalproex to 500 mg in the morning and 750 mg at night - in 2 weeks check trough level of valproate on lowered dose - Reassess after these changes - Continue lacosamide 300 mg BID for now (pending above may consider decrease of AM dose) - Future options: Oxcarbazepine or cenobamate (in place of Lacosamide), perampanel (less ideal withpsychiatric history), Lamotrigine (would require dose adjustment with valproate), topiramate (may be better trial without coadministration with valproate) - Reviewed neuropsychological impression, as recommended consultation to speech therapy - encouraged mental health engagement, referral to psychology for counselling - Re-discussed the concept of medical intractability; and option of epilepsy surgical evaluation; PET, JW before PMC presentation if seizures re-emerge - Driving restriction and seizure precaution remain in place until 6 months seizure free FOLLOW-UP: Offered 8 week f/u 11/21 virtual visit with me at [facility] given limitations I spent a total of minutes on the date of the service which included: Lynda Huff MD, MEd Staff Physician [facility] [address] [place] [address] Office cc: Primary Care Physician: Charles Agudelo Sr, MD [facility] [id number] Referring: Lynda Huff [address] [place] [address] Patient: Mr. Paramjit Romeo [address] [place] [address] documented in this encounterParkview Health [facility] Hospital07-26-2022 History of Present illness Narrative* Lynda Huff MD - 09/24/2021 10:07 AM EDT Patient unable to connect by audio. Has had difficulty with virtual visit technology at my last encounter (had to convert to telephone)and on other visits with APPs. Given complexity of care - I would pina in person or audio / visual connection. Unfortunately, he could not answer phone during the visit attempt. I disconnected 30 minutes after visit scheduled start time. I am happy to attempt to connect if he wishes to try another device later (3PM) and virtual is set up. Also offered in person appointment or Thursday as add on 8 AM (note this appointment was an add on at their request) Lynda Huff MD Addendum: I offered attempt to reconnect at 11AM when I had another unexpected break in patient care duties, but patient was not available (had returned to work); was unable to meet during normal hours. Reports unable to come to any in person visit. I will accomodate an add on request for virtual visit after hours at 530 PM on 10/01. Lynda Huff MD documented in this encounterParkview Health [facility] Hospital07-08-2022 Miscellaneous Notes* Telephone Encounter - Cristy Alatorre APRN.CNP - 09/06/2021 4:02 PM EDT The following approved medication requests have been transmitted electronically. Signed Prescriptions Disp Refills VIMPAT 200 mg 270 tablet 1 Sig: TAKE 1 AND 1/2 TABLETS BY MOUTH TWICE A DAY CHIN Class: C-V SHAGGY: No Authorizing Provider: CRISTY ALATORRE APRN.CNP * Telephone Encounter - Aleksandra Bowen RN - 09/06/2021 3:46 PM EDT Patient will be out of medication on 09/07 Medication was continued following EMU admission of 07/18/2021 Patient confirms he is taking LCM 300 mg BID Preferred pharmacy: [facility] [place] Forwarded to [facility] [employer] for processing Aleksandra Bowen RN documented in this encounterParkview Health [facility] Hospital06-30-2022 History of Present illness Narrative* Estela Gonzalez APRN.PHARMACY OPERATIONS COORDINATOR - 08/29/2021 5:29 PM EDT [facility] VIRTUAL VISIT HISTORY OF PRESENT ILLNESS: Paramjit Romeo Jr. is a 55 year old RHM who is diagnosed with seizures, and presents today for post EMU f/u and plan. They are an established patient of Dr. Huff's and was last seen on 05/07/2021 by Aliyah Nunez CNP.No appointments were made post discharge. reports his and there QOL is poor. He has terrible bilateral hand tremors, loss of hearing (being tested outside [facility]), depressed, sad, in a brain fog most of the time.Frequent repeat of redirections, conversations, etc. EMU Admission: 07/18/2021 to 07/20/2021 REASON FOR HOSPITALIZATION: Diagnosis of Epilepsy he contines to have seizures with limited alochol use over the last few years. Initially hypermotor/convulsive episodes in sleep; now with ?gustatory aura -> dialepsis. Outside MRI and EEG normal.Diagnostic EMU admission holding AED was normal but inconclusive as no episodes were captured in 2019. Concerns include worsening memory and cognitive concerns. At the [facility] on 05/07/21, it was recommende d to get a baseline NPT and consider EMU admission for seizure burden assessment. The patient was admitted to the [facility] from 07/18/2021 until 07/20/2021 for breakthrough seizures. The patient was admitted taking LCM 300mg BID and VPA ER 500/750 mg which was continued on discharge.The patient was noted to have one NCS and four typical automotor seizures with regional right frontotemporal EEG onset. IMPORTANT TESTS AND PROCEDURES: Continuous Video EEG and MRI Brain HOSPITAL COURSE: Paramjit Romeo Jr. is a 55 year old RHM with history of epilepsy, likely focal onset 11/2017. Two episodes concerning for cluster of seizures or status, the second requiring intubation. The first potentially could have been provoked by excessive alcohol use, though Interictal findings: SW, Right FT Ictal findings: Five automotor seizures EEG seizure regional right FT Please see separate video-EEG report for details. MRI Brain on 07/20/2021 was reported as normal. VPA ER was increased to 750 mg BID and Clobazam 5 mg BID was added. Seizure precautions reiterated andalyse was discharged to home in stable condition. He will follow-up in OP clinic with Dr. Huff. Seizures: 07/18/21 VPA was increased. AED's: VPA 750mg BID Onfi 5mg BID Neuropsych Testing done 07/18/2021. MRI Brain WO/W IVCON 07/20/2021 IMPRESSION: No acute intracranial process. No abnormal intracranial enhancement. No apparent structural abnormality to suggest an epileptogenic focus. Symmetric size, signal, and morphology of the bilateral hippocampi. In other health, see above. 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 does most of the talking CURRENT OUTPATIENT MEDICATIONS: Current Outpatient Medications Medication Sig cloBAZam (ONFI) 10 mg tab tablet 0.5 tablets by ORAL/FEEDING TUBE route twice daily. divalproex ER (DEPAKOTE ER) 250 mg 24 hr tablet Take 3 tablets by mouth twice daily. divalproex ER (DEPAKOTE ER) 250 mg 24 hr tablet Take 3 tablets by mouth twice daily. Dose increase.Fill this RX when patient due for refill. Thanks. clonazePAM orally disintegrating (KLONOPIN WAFER) 0.5 mg disintegrating tablet Take 1 tablet as needed for prolonged seizure or cluster of seizures. Do not exceed more than 2 tablets per day. COMPOUNDED PRESCRIPTION Embrace 2 watch. montelukast (SINGULAIR) 10 mg tablet Take 10 mg by mouth once daily. lisinopril-hydrochlorothiazide (PRINZIDE,ZESTORETIC) 20-12.5 mg per tablet Take 0.5 tablets by mouth once daily. Take a half tablet of 20-12.5 daily No current facility-administered medications for this visit. 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 No family history on file. ASSESSMENT: Paramjit Romeo Jr. is a 55 year old RHM with with history of seizures,alcohol abuse in remission, severe cognitive and memory issues worsening, bilateral hand tremors. Recent EMU admission with 5 seizures. Neuropsych testing done, repeat MRI done. Patient starting to have issues at work with frequent re-directions. Patient doesn't know how much longer he can do this. 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 Poor QOL. Tremor worsening on VPA. Need direction from Dr. Huff. PLAN: - LABS: none - Medications: -continue with Onfi 5mg BID -continue with VPA ER 250mg, 3 tabs BID -continue with all other daily medications - Consults: with Edita Jordan CNP - Follow up: pr Dr. Huff I spent 20 minutes during this encounter counseling this patient and over recent results, Given neurosLelongch phone number to call for explantion of finding, Agreed to speak with Ms. Jordan for mood, will get appoitnemt with Dr. Huff to discuss option/Plan.. Estela Gonzalez APRN.CNP August 29, 2021 documented in this encounterParkview Health [facility] Hospital05-18-2022 Miscellaneous Notes* Telephone Encounter - Cristy Alatorre APRN.CNP - 07/17/2021 10:05 AM EDT The following approved medication requests have been transmitted electronically. Signed Prescriptions Disp Refills divalproex ER (DEPAKOTE ER) 250 mg 24 hr tablet 450 tablet 1 Sig: take 2 tablets by mouth every morning and 3 tablets every evening SHAGGY: No Authorizing Provider: CRISTY ALATORRE APRN.CNP documented in this encounterParkview Health Bryan Hospital05-06-2022 Miscellaneous Notes* Telephone Encounter - Cristy Tabor - 07/05/2021 3:44 PM EDT Patient requesting Pre admission covid order be faxed to [facility] Ph.[phone] [place] [phone] documented in this encounterParkview Health Bryan Hospital05-06-2022 Miscellaneous Notes* Telephone Encounter - Aleksandra Bowen RN - 07/05/2021 11:39 AM EDT Recommendations sent via [employer] message Aleksandra Bowen RN * Telephone Encounter - Cristy Alatorre APRN.CNP - 07/05/2021 11:17 AM EDT Levels WNL No changes to current doses- can adjust in EMU if needed Cristy Alatorre APRN.CNP * Telephone Encounter - Aleksandra Bowen RN - 07/05/2021 10:42 AM EDT Images from the original note were not included. Trough level EMU admission scheduling in process Forwarded to [facility] for review. Aleksandra Bowen RN * Telephone Encounter - Kasey Guerin - 07/05/2021 10:31 AM EDT Images from the original note were not included. Received additional labs. Uploaded to [employer] * Telephone Encounter - Cristy Alatorre APRN.CNP - 07/04/2021 9:55 AM EDT VPa F/Y & CMP levels WNL Awaiting CBC & LCM Cristy Alatorre APRN.CNP PLAN: - Continue VPA ER 500/750 - Continue LCM 300 mg BID - Labs: VPA f/t, LCM, CMP, CBC (send lab req) * Telephone Encounter - Aleksandra Bowen RN - 07/03/2021 4:31 PM EDT Trough labs - LCM level pending Current ASMs: VPA ER 500 mg/750 mg LCM 300 mg BID Forwarded to [facility] for review. Aleksandra Bowen RN * Telephone Encounter - Kasey Guerin - 07/03/2021 4:19 PM EDT Images from the original note were not included. OUTSIDE LAB REPORT FACILITY NAME [facility] PHONE/FAX [phone] COLLECTION DATE AND TIME: 06/29/2021 0805 Uploaded to [employer] * Telephone Encounter - Aleksandra Bowen RN - 07/03/2021 2:38 PM EDT CBC/CMP and VPA levels to be faxed to office Aleksandra Bowen RN documented in this encounterParkview Health [facility] Hospital05-05-2022 Miscellaneous Notes* Telephone Encounter - Aleksandra Bowen RN - 07/04/2021 11:06 AM EDT Spouse aware of scheduling process. Aleksandra Bowen RN * Telephone Encounter - Cristy Alatorre APRN.CNP - 07/04/2021 10:51 AM EDT Abstract placed and routed to EMU scheduling team Cristy Alatorre APRN.BRUNILDA * Telephone Encounter - Aleksandra Bowen RN - 07/03/2021 2:19 PM EDT Patient would like to schedule EMU admission DUCT INSTALLER testing scheduled: 07/18/2021 Contact for admission: spouse, Cristy Forwarded to [facility] for placement of abstract Aleksandra Bowen RN documented in this encounterParkview Health [facility] Hospital05-05-2022 History of Present illness Narrative* Cristy Alatorre APRN.PHARMACY OPERATIONS COORDINATOR - 07/04/2021 10:57 AM EDT Please route this encounter to the EMU Scheduling Pool ( P EMU ) or PMU Scheduling Pool ( P PMU ) through LOS & Follow up PHASE 1.0 AND 1.5 ORDER SYNOPSIS Patient: Paramjit Romeo Jr. ([id number]) Best contact number: [phone] Insurance: Payor: [facility] [employer] / Plan: [facility] [employer] [facility] / Product Type: PPO / Scheduling Team: Please call for adult patients: Cristy Magaña ([phone]) Haroon Thompson ([phone]) Violeta Villarreal([phone]) Isatu Jhaveri([phone]) Please call for pediatric patients: Haroon Thompson ([phone]) Violeta Villarreal ([phone]) Cristy Magaña ([phone]) Isatu Jhaveri([phone]) 07/04/2021 Admission Type EMU Adult Number of Days requested 5 Location [facility] Admit Priority Routine PURPOSE 07/04/2021 Patient Being Considered for Epilepsy Surgery? No VEEG recommended to assess seizure burden, address new & concerning syymptom- sign complex, and/or clarify syndromic epilepsy diagnosis? Yes 07/04/2021 Sphenoidal monitoring Yes Electrode placement Standard Appointments and Tests PRE-PROCEDURE & PRE-OPERATIVE COVID (AMB COVID PRE-PROCEDURE TESTING PANEL) EPIL EEG LEAD PLACEMENT EPIL VEEG ADMIT TO EMU/PMU Comments: Patient has failed 2 medications, prior VEEG inconclusive, repeat VEEG to confirm diagnosis and purse surgical evaluation if appropriate Consultations None Please route this encounter to the EMU Scheduling pool ( P EMU ) or PMU Scheduling pool ( P PMU ) through LOS & Follow up Scheduling coordinators: For all VNS patients being scheduled for JW, please schedule VNS off/on office visits. documented in this encounterParkview Health [facility] Hospital04-27-2022 Miscellaneous Notes* Telephone Encounter - Aleksandra Bowen RN - 06/26/2021 1:33 PM EDT Spoke with patient's spouse and provided recommendations Patient will have updated lab work completed 06/29 locally Will schedule DUCT INSTALLER testing - scheduling # provided Will consider EMU admission and advise office. Aleksandra Bowen RN * Telephone Encounter - Cristy Alatorre APRN.CNP - 06/26/2021 12:21 PM EDT Would recommend he complete lab work first and scheduldge DUCT INSTALLER testing If she continue to notice he seems off and there is a concern he may be having seizures that were missed would discuss VEEG with dr. Huff for sz burden assessment Cristy Alatorre APRN.CNP * Telephone Encounter - Aleksandra Bowen RN - 06/25/2021 8:42 AM EDT Update: -Patient seen in [facility] ER on 06/24 - symptoms attributed to likely reaction to COVID booster - labs drawn (VPA level WNL per ER MD) Severe hand tremors - unable to hold pen/write name - 06/25 - patient feeling better - hand tremors present but not as severe - spouse expresses concerns as to worsening memory - seems off per spouse; may forgot how to perform familiar job task; may forgot to turn off stove She is aware of previous recommendations re: DUCT INSTALLER testing Forwarded to [facility] for review/further recommendation Aleksandra Bowen RN * Telephone Encounter - Aleksandra Bowen RN - 06/24/2021 1:07 PM EDT Patient's spouse contacts office to report patient experiencing SOB; difficulty ambulating and increased tremors Patient had COVID booster last week - reported feeling ill after He was seen in local [facility] care - patient was recommended to contact neurologist Patient had been unable to have lab work completed locally due to insurance/lab issues Recommendation was for patient to be immediately evaluated at closest ER Epilepsy team available for consult if necessary Spouse verbalizes understanding/agreement Current ASMs: LCM 300 mg BID VPA ER 500 mg/750 mg Aleksandra Bowen RN documented in this encounterParkview Health [facility] Hospital04-25-2022 Evaluation note* Encounter Date Diagnosis Assessment Notes Treatment Notes Treatment Clinical Notes May, Cough (ICD-10 - R05.9) May, Tremors of nervous system (ICD-10 - R25.1) Recommend patient contact neurologist because symptoms are causing SOB, and interfering with QOL. Neurologist recommends patient to go to ER due to symptoms. [employer] [facility] 04-06-2022 Miscellaneous Notes* Telephone Encounter - Cristy Alatorre APRN.CNP - 06/05/2021 10:50 AM EDT The following approved medication requests have been transmitted electronically. Signed Prescriptions Disp Refills VIMPAT 200 mg 270 tablet 1 Sig: TAKE 1 AND 1/2 TABLETS BY MOUTH TWICE A DAY CHIN Class: C-V SHAGGY: No Authorizing Provider: CRISTY ALATORRE APRN.CNP documented in this encounterParkview Health [facility] Hospital01-12-2022 Evaluation note* Encounter Date Diagnosis Assessment Notes Treatment Notes Treatment Clinical Notes Mar, Contact with and (suspected) exposure to other viral communicable diseases (ICD-10 - Z20.828) Mar, COVID-19 virus infection (ICD-10 - U07.1) Today you tested positive for the COVID virus. This mean you need to follow all CDC quarantine guidelines found at [email or web address] v. It is important to rest, increase fluids, and stay at home. Contact PCP and inform them of results. Medications like Mucinex, Cepacol, Tylenol, saline nasal spray are over the counter medications that can help with the symptoms. Current guidelines include staying home, having no fever above 100.4 for 24 hours without medication and having significant improvement of symptoms before you are allowed to stop your quarantine.. For full guidelines go to CDC. GOV. Contact primary care and ask for guidance is essential to follow up. If you develop chest pain, shortness of breath, or feel like you are going to pass out, then go to the ER. Mar, Other Additional time spent conducting pre-visit phone call, screening for symptoms, instructions on social distancing, application and removal of PPE, and cleaning of examination room, equipment and supplies was preformed. Patient education given for testing methodology and results. Patient care instructions given in writting by [employer] [facility] document. [employer] Other 11-01-2021 Evaluation note* Encounter Date Diagnosis Assessment Notes Treatment Notes Treatment Clinical Notes Dec, Contact with and (suspected) exposure to other viral communicable diseases (ICD-10 - Z20.828) Today test was performed in office. Results are currently negative. That does not mean that you will not develop COVID or do not currently have a low viral count of COVID. The rapid test works best if symptoms have been over 72 hours and the results can vary if you are asymptomatic There is a higher chance of false negative results to occur if testing is performed too soon. It is recommended that even if results are negative and you have been exposed to someone that has COVID that you follow current CDC recommendations. These can be found at CDC.GOV. Follow up with primary care provider if symptoms persist or do not improve Dec, Other Additional time spent conducting pre-visit phone call, screening for symptoms, instructions on social distancing, application and removal of PPE, and cleaning of examination room, equipment and supplies was preformed. Patient education given for testing methodology and results. Patient care instructions given in writting by [employer] [facility] document. [employer] Other Evaluation note* Diagnosis Nonintractable epilepsy with status epilepticus, unspecified epilepsy type (HCC) documented in this encounter [facility]* Diagnosis Intractable epilepsy without status epilepticus, unspecified epilepsy type (HCC)- Primary Focal epilepsy with impairment of consciousness, intractable (HCC) Localization-related (focal) (partial) epilepsy and epileptic syndromes with simple partial seizures, with intractable epilepsy documented in this encounter [facility]* Diagnosis Nonintractable epilepsy with status epilepticus, unspecified epilepsy type (HCC) documented in this encounter [facility]* Diagnosis Focal epilepsy with impairment of consciousness, intractable (HCC)- Primary Localization-related (focal) (partial) epilepsy and epileptic syndromes with simple partial seizures, with intractable epilepsy Mood disorder due to known physiological condition with depressive features Mood disorder in conditions classified elsewhere Memory loss [facility]* Diagnosis Nonintractable epilepsy with status epilepticus, unspecified epilepsy type (HCC) documented in this encounter [facility]* Diagnosis APPOINTMENT CANCELLED- Primary documented in this encounter [facility]* Diagnosis Focal epilepsy with impairment of consciousness (HCC)- Primary Localization-related (focal) (partial) epilepsy and epileptic syndromes with simple partial seizures, without mention of intractable epilepsy Nonintractable epilepsy with status epilepticus, unspecified epilepsy type (HCC) Medication side effect Unspecified adverse effect of unspecified drug, medicinal and biological substance At risk for polypharmacy Subjective memory complaints Memory loss History of status epilepticus documented [facility]* Diagnosis Nonintractable epilepsy with status epilepticus, unspecified epilepsy type (HCC) documented in this encounter [facility]* Diagnosis Medication side effect- Primary Unspecified adverse effect of unspecified drug, medicinal and biological substance Drug-induced tremor Abnormal involuntary movements Focal epilepsy with impairment of consciousness (HCC) Localization-related (focal) (partial) epilepsy and epileptic syndromes with simple partial seizures, without mention of intractable epilepsy History of status epilepticus Subjective memory complaints Memory loss Tremor Abnormal involuntary movements Nonintractable epilepsy with status epilepticus, unspecified epilepsy type (HCC) documented in this encounter [facility] note* Diagnosis Language difficulty- Primary Focal epilepsy with impairment of consciousness, intractable (HCC) Localization-related (focal) (partial) epilepsy and epileptic syndromes with simple partial seizures, with intractable epilepsy documented in this encounter [facility] noteNo assessment information availableOhiohealth [facility] Work Phone: Evaluation note* Diagnosis Focal epilepsy with impairment of consciousness (HCC)- Primary Localization-related (focal) (partial) epilepsy and epileptic syndromes with simple partial seizures, without mention of intractable epilepsy Subjective memory complaints Memory loss Medication side effect Unspecified adverse effect of unspecified drug, medicinal and biological substance Nonintractable epilepsy with status epilepticus, unspecified epilepsy type (HCC) [facility] Focal epilepsy with impairment of consciousness (HCC)- Primary Localization-related (focal) (partial) epilepsy and epileptic syndromes with simple partial seizures, without mention of intractable epilepsy [facility] Diagnosis Focal epilepsy with impairment of consciousness, intractable (HCC)- Primary Localization-related (focal) (partial) epilepsy and epileptic syndromes with simple partial seizures, with intractable epilepsy Subjective memory complaints Memory loss Recurrent major depression in partial remission (HCC) Major depressive disorder, recurrent episode, in partial or unspecified remission [facility]* Diagnosis Encounter for monitoring long-term anticonvulsant therapy- Primary Encounter for therapeutic drug monitoring Nonintractable epilepsy with status epilepticus, unspecified epilepsy type (HCC) Subjective memory complaints Memory loss [facility] Diagnosis Onset Date Resolution Status Internal derangement of right shoulder acute [facility] Work Phone: evaluation note* Diagnosis Onset Date Resolution Status Internal derangement of right shoulder acute Labral tear of long head of left biceps tendon acute Primary osteoarthritis of shoulder acute [facility] Work Phone: Evaluation note* Diagnosis Onset Date Resolution Status Internal derangement of right shoulder acute Labral tear of long head of left biceps tendon acute Primary osteoarthritis of shoulder acute Laceration acute [facility] Work Phone: Evaluation note* Diagnosis Onset Date Resolution Status Labral tear of long head of left biceps tendon acute Primary osteoarthritis of shoulder acute Laceration acute Visit for suture removal acu te [facility] Work Phone: Evaluation note* Diagnosis Onset Date Resolution Status Labral tear of long head of left biceps tendon acute Primary osteoarthritis of shoulder acute Laceration acute Visit for suture removal acu te Cellulitis of right leg without foot acute [facility] Work Phone: Evaluation note* Diagnosis Onset Date Resolution Status Laceration acute Visit for suture removal acu te Cellulitis of right leg without foot acute Contact with and (suspected) exposure to covid-19 noneactive [facility] Work Phone: Evaluation note* Diagnosis Onset Date Resolution Status Laceration acute Visit for suture removal acu te Cellulitis of right leg without foot acute Viral URI acute Contact with and (suspected) exposure to covid-19 noneactive [facility] Work Phone: Histdhu general Narrative - Reported* Type Description Date Medical History Hypertension Medical History high cholesterol Medical History Hyperlipidemia Medical History asthma Medical History obstructive sleep apnea, pt usin g CPAP at home Medical History chronic allergic rhinitis Medical History exogenous obesity Medical History lumbar arthritis Medical History mild anemia Medical History hx/o nicotine dependence. Pt sushil t 04/2006 Medical History right rotator cuff a nd right bicep tear repair 11/2010 Medical History Seizure Disorder Surgical History adenoidectomy Surgical History arthroscopy shoulder right shou lder -AG[facility] 2011 Surgical History tonsillectomy Surgical History right rotator cuff and right bi cep tendon repair 11/2010 Hospitalization History see above [facility] Other [facility] general Narrative - Reported* Type Description Date Medical History Hypertension Medical History high cholesterol Medical History Hyperlipidemia Medical History asthma Medical History obstructive sleep apnea, pt usin g CPAP at home Medical History chronic allergic rhinitis Medical History exogenous obesity Medical History lumbar arthritis Medical History mild anemia Medical History hx/o nicotine dependence. Pt sushil t 04/2006 Medical History right rotator cuff a nd right bicep tear repair 11/2010 Medical History Seizure Disorder Surgical History adenoidectomy Surgical History arthroscopy shoulder right shou lder -[facility] 2011 Surgical History tonsillectomy Surgical History right rotator cuff and right bi cep tendon repair 11/2010 Surgical History left shoulder scope/debridement 02/12/2022 Hospitalization History see above [facility] Other Hospital Discharge instructions Additional Instructions HERE ARE SOME IMPORTANT POST-OPERATIVE INSTRUCTIONS FOR YOU: Rotator Cuff Repair/Labrum Repair ACTIVITY 1. Begin gentle shoulder pendulum exercises today. 2. Progress to active elbow/wrist motion as tolerated. 3. Utilize your sling during activity. It is ok to remove sling when sitting. 4. You may need to sleep sitting up to prevent pain. 5. Ice shoulder for 20 minutes every hour as tolerated. DRESSING 1. OK to remove dressings in 24 hours. Apply Band-Aids, and the OK to shower. 2. If there are tape strips over the incision line, do not remove them. MEDICATION 1. Take pain medications as directed every 4-6 hours as needed for pain. 2. Progressively decrease pain medication use as soon as possible. POST-OPERATIVE APPOINTMENT: 1. Return in ONE week for re-evaluation. 2. Call [phone] for further questions.[facility] Work Phone: Hospital Discharge instructionsAmbulatory Orders* Referral to Orthopedic Surgery Time Frame: 10/19/23, Location: None Selected [facility] Work Phone: Reason for referral (narrative)* Outpatient Procedure (Routine) - Pending Review Specialty Diagnoses / Procedures Referred By Contac t Referred To Contact [facility] Diagnoses Focal epilepsy with impairment of consciousness, intractable (HCC) Procedures EPIL EEG LEAD PLACEMENT EEG EXTENDED MONITORING 61-119 MINUTES ELECTROENCEPHALOGRAM REC COMA/SLEEP ONLY Cristy Alatorre APRN.CNP [address] [place] [address] [place] [address] Referral ID Status Reason Start Date Expiration Date Visits Requested Visits Authorized [id number] Pending Review Auto-Generat ed Referral 07/04/2021 07/04/2022 1 1 [facility] for referral (narrative)* Outpatient Procedure (Routine) - Pending Review Specialty Diagnoses / Procedures Referred By Contac t Referred To [facility] Diagnoses Focal epilepsy with impairment of consciousness (HCC) Procedures EPIL EEG LONG EEG EXTENDED MONITORING 61-119 MINUTES ELECTROENCEPHALOGRAM REC COMA/SLEEP ONLY Lynda Huff MD [address] [address] Referral ID Status Reason Start Date Expiration Date Visits Requested Visits Authorized [id number] Pending Review Auto-Generat ed Referral 01/30/2022 01/30/2023 1 1 [facility] Summary Purpose Family History No Family History Records Found Relationship Condition Age at Onset Recorded Date/T sandra Not Specified No pertinent family history Unknown Relationship Condition Age at Onset Recorded Date/T sandra Not Specified No pertinent family history Unknown brother Family history of other condition Unknown father Myocardial infarction Unknown Unknown family member Unknown Advance Directives No Advanced Directives Records FoundDocuments on File Type Date Recorded Patient Pedorthist Expl anation Advance Directive(s) 07/31/2018 11:01 AM Advance Directive(s) 07/31/2018 8:11 PM Advance Directive(s) 07/09/2018 4:18 PM Documents on File Type Date Recorded Patient Pedorthist Expl anation Advance Directive(s) 07/31/2018 11:01 AM Advance Directive(s) 07/31/2018 8:11 PM Advance Directive(s) 07/09/2018 4:18 PM Documents on File Type Date Recorded Patient Pedorthist Expl anation Advance Directive(s) 07/05/2021 2:50 PM Advance Directive(s) 07/31/2018 11:01 AM Advance Directive(s) 07/31/2018 8:11 PM Advance Directive(s) 07/09/2018 4:18 PM Documents on File Type Date Recorded Patient Pedorthist Expl anation Advance Directive(s) 07/05/2021 2:50 PM Advance Directive(s) 07/31/2018 11:01 AM Advance Directive(s) 07/31/2018 8:11 PM Advance Directive(s) 07/09/2018 4:18 PM Advance Directive Response Recorded Date/ Time Advance Directives No October 27, 2017 7:22am Advance Directive Response Recorded Date/ Time Advance Directives No October 27, 2017 6:22am Reason for Referral Specialty Diagnoses / Procedures Referred By Rigoberto berrios Referred To Contact Diagnoses Nonintractable epilepsy with status epilepticus, unspecified epilepsy type (HCC) Procedures PROVIDER ORDERED FOLLOW UP OFFICE/OUTPATIENT [facility] 60 MINUTES Lynda Huff MD [address] [place] [address] Referral ID Status Reason Start Date Expiration Date Visits Requested Visits Authorized [id number] Authorized PCP Requested Referral 11/11/2023 05/10/2024 1 1 Specialty Diagnoses / Procedures Referred By Rigoberto berrios Referred To Contact [facility] Diagnoses Focal epilepsy with impairment of consciousness, intractable (HCC) Procedures CONSULT TO PSYCHIATRY OFFICE/OUTPATIENT [facility] 60-74 MINUTES Lynda Huff MD [address] [address] [facility] Main [address] [place] [address] Referral ID Status Reason Start Date Expiration Date Visits Requested Visits Authorized [id number] Pending Review PCP Requested Referral OON/Self Pay Override 04/24/2022 04/24/2023 1 1 Specialty Diagnoses / Procedures Referred By Contac t Referred To Contact [facility] Diagnoses Language difficulty Focal epilepsy with impairment of consciousness, intractable (HCC) Procedures CONSULT TO SPEECH THERAPY OFFICE/OUTPATIENT [facility] 60-74 MINUTES Cristy Alatorre APRN.PHARMACY OPERATIONS COORDINATOR [address] [place] [address] [facility] [place] [address] Referral ID Status Reason Start Date Expiration Date Visits Requested Visits Authorized [id number] Pending Review Auto-Generat ed Referral 12/02/2021 12/02/2022 1 1 Specialty Diagnoses / Procedures Referred By Contac t Referred To Contact [facility] Diagnoses Focal epilepsy with impairment of consciousness (HCC) Procedures CONSULT TO SPEECH THERAPY OFFICE/OUTPATIENT [facility] 60-74 MINUTES Lynda Huff MD [address] [address] [facility] [address] [address] Referral ID Status Reason Start Date Expiration Date Visits Requested Visits Authorized [id number] Pending Review Auto-Generat ed Referral 10/01/2021 10/01/2022 1 1 Specialty Diagnoses / Procedures Referred By Contac t Referred To Contact Psychology Diagnoses Focal epilepsy with impairment of consciousness (HCC) Procedures CONSULT TO PSYCHOLOGY OFFICE/OUTPATIENT [facility] 60-74 MINUTES Lynda Huff MD [address] [address] Referral ID Status Reason Start Date Expiration Date Visits Requested Visits Authorized [id number] Pending Review PCP Requested Referral 10/01/2021 10/01/2022 1 1 Chief Complaint and Reason for Visit Chief Complaint M19.012 swallowing internal derangement of l shoulder Chief Complaint M19.012 internal derangement of l shoulder Shoulder pain swallowing Shoulder pain Chief Complaint M19.012 internal derangement of l shoulder Shoulder pain swallowing Shoulder pain Shoulder pain Chief Complaint Focal epilepsy with impairment of consciousness Chief Complaint op meeting facilitator rt shoulder pa in nx M25.511 - Pain in right shoulder Reason for Visit Internal derangement of right shoulder Chief Complaint op meeting facilitator rt shoulder pa in nx M25.511 - Pain in right shoulder M24.811 Reason for Visit Internal derangement of right shoulder Chief Complaint op meeting facilitator rt shoulder pa in nx M25.511 - Pain in right shoulder M24.811 MRI RESULTS Reason for Visit Internal derangement of right shoulder Labral tear of long head of left biceps tendon Primary osteoarthritis of shoulder Chief Complaint op meeting facilitator rt shoulder pa in nx M25.511 - Pain in right shoulder M24.811 MRI RESULTS L shoulder arthritis right thumb laceration Reason for Visit Internal derangement of right shoulder Labral tear of long head of left biceps tendon Primary osteoarthritis of shoulder Chief Complaint op meeting facilitator rt shoulder pa in nx M25.511 - Pain in right shoulder M24.811 MRI RESULTS L shoulder arthritis right thumb laceration stitches out Reason for Visit Internal derangement of right shoulder Labral tear of long head of left biceps tendon Primary osteoarthritis of shoulder Laceration Chief Complaint M24.811 MRI RESULTS L shoulder arthritis right thumb laceration stitches out Right kwon injury, tripped over a stump Reason for Visit Labral tear of long head of left biceps tendon Primary osteoarthritis of shoulder Laceration Visit for suture removal Chief Complaint MRI RESULTS L shoulder arthritis right thumb laceration stitches out Right kwon injury, tripped over a stump Reason for Visit Labral tear of long head of left biceps tendon Primary osteoarthritis of shoulder Laceration Visit for suture removal Cellulitis of right leg without foot Chief Complaint L shoulder arthritis right thumb laceration stitches out Right kwon injury, tripped over a stump sinus drainage, dizzy, ears plugged Reason for Visit Laceration Visit for suture removal Cellulitis of right leg without foot Contact with and (suspected) exposure to covid-19 Chief Complaint right thumb lacerati on stitches out Right kwon injury, tripped over a stump sinus drainage, dizzy, ears plugged Reason for Visit Laceration Visit for suture removal Cellulitis of right leg without foot Viral URI Contact with and (suspected) exposure to covid-19 Additional Source Comments (unrecognized sect ion and content) No Status Records FoundNo Status Records FoundNo Status Records FoundNo Status Records FoundNo Status Records Found INFORMATION SOURCE (unrecogn ized section and content) DATE CREATED AUTHOR 2019 [facility] DATE CREATED AUTHOR AUTHOR'S ORGANIZ ATION 11/30/2021 [facility] DATE CREATED AUTHOR AUTHOR'S ORGANIZ ATION 07/05/2023 [facility] DATE CREATED AUTHOR AUTHOR'S ORGANIZ ATION 10/03/2023 [facility] DATE CREATED AUTHOR AUTHOR'S ORGANIZ ATION 10/25/2023 [facility] EPIC Source Comments (unrecognize d section and content) In the event this informatio n is protected by the Federal Confidentiality of Alcohol and Drug Abuse Patient Records regulations: The Federal rules restrict any use of the information to criminally investigate or prosecute any alcohol or drug abuse patient.[facility] the event this information is protected by the Federal Confidentiality of Alcohol and Drug Abuse Patient Records regulations: The Federal rules restrict any use of the information to criminally investigate or prosecute any alcohol or drug abuse patient.[facility] HospitalIn the event this information is protected by the Federal Confidentiality of Alcohol and Drug Abuse Patient Records regulations: The Federal rules restrict any use of the information to criminally investigate or prosecute any alcohol or drug abuse patient.[facility] HospitalIn the event this information is protected by the Federal Confidentiality of Alcohol and Drug Abuse Patient Records regulations: The Federal rules restrict any use of the information to criminally investigate or prosecute any alcohol or drug abuse patient.[facility] HospitalIn the event this information is protected by the Federal Confidentiality of Alcohol and Drug Abuse Patient Records regulations: The Federal rules restrict any use of the information to criminally investigate or prosecute any alcohol or drug abuse patient.[facility] Hospital[facility] the event this information is protected by the Federal Confidentiality of Alcohol and Drug Abuse Patient Records regulations: The Federal rules restrict any use of the information to criminally investigate or prosecute any alcohol or drug abuse patient.[facility] HospitalIn the event this information is protected by the Federal Confidentiality of Alcohol and Drug Abuse Patient Records regulations: The Federal rules restrict any use of the information to criminally investigate or prosecute any alcohol or drug abuse patient.[facility] HospitalIn the event this information is protected by the Federal Confidentiality of Alcohol and Drug Abuse Patient Records regulations: The Federal rules restrict any use of the information to criminally investigate or prosecute any alcohol or drug abuse patient.[facility] HospitalIn the event this information is protected by the Federal Confidentiality of Alcohol and Drug Abuse Patient Records regulations: The Federal rules restrict any use of the information to criminally investigate or prosecute any alcohol or drug abuse patient.[facility] HospitalIn the event this information is protected by the Federal Confidentiality of Alcohol and Drug Abuse Patient Records regulations: The Federal rules restrict any use of the information to criminally investigate or prosecute any alcohol or drug abuse patient.[facility] HospitalIn the event this information is protected by the Federal Confidentiality of Alcohol and Drug Abuse Patient Records regulations: The Federal rules restrict any use of the information to criminally investigate or prosecute any alcohol or drug abuse patient.[facility] HospitalIn the event this information is protected by the Federal Confidentiality of Alcohol and Drug Abuse Patient Records regulations: The Federal rules restrict any use of the information to criminally investigate or prosecute any alcohol or drug abuse patient.[facility] HospitalIn the event this information is protected by the Federal Confidentiality of Alcohol and Drug Abuse Patient Records regulations: The Federal rules restrict any use of the information to criminally investigate or prosecute any alcohol or drug abuse patient.[facility] HospitalIn the event this information is protected by the Federal Confidentiality of Alcohol and Drug Abuse Patient Records regulations: The Federal rules restrict any use of the information to criminally investigate or prosecute any alcohol or drug abuse patient.[facility] HospitalIn the event this information is protected by the Federal Confidentiality of Alcohol and Drug Abuse Patient Records regulations: The Federal rules restrict any use of the information to criminally investigate or prosecute any alcohol or drug abuse patient.[facility] HospitalIn the event this information is protected by the Federal Confidentiality of Alcohol and Drug Abuse Patient Records regulations: The Federal rules restrict any use of the information to criminally investigate or prosecute any alcohol or drug abuse patient.[facility] HospitalIn the event this information is protected by the Federal Confidentiality of Alcohol and Drug Abuse Patient Records regulations: The Federal rules restrict any use of the information to criminally investigate or prosecute any alcohol or drug abuse patient.[facility] HospitalIn the event this information is protected by the Federal Confidentiality of Alcohol and Drug Abuse Patient Records regulations: The Federal rules restrict any use of the information to criminally investigate or prosecute any alcohol or drug abuse patient.[facility] HospitalIn the event this information is protected by the Federal Confidentiality of Alcohol and Drug Abuse Patient Records regulations: The Federal rules restrict any use of the information to criminally investigate or prosecute any alcohol or drug abuse patient.[facility] HospitalIn the event this information is protected by the Federal Confidentiality of Alcohol and Drug Abuse Patient Records regulations: The Federal rules restrict any use of the information to criminally investigate or prosecute any alcohol or drug abuse patient.[facility] HospitalIn the event this information is protected by the Federal Confidentiality of Alcohol and Drug Abuse Patient Records regulations: The Federal rules restrict any use of the information to criminally investigate or prosecute any alcohol or drug abuse patient.[facility] HospitalIn the event this information is protected by the Federal Confidentiality of Alcohol and Drug Abuse Patient Records regulations: The Federal rules restrict any use of the information to criminally investigate or prosecute any alcohol or drug abuse patient.[facility] HospitalIn the event this information is protected by the Federal Confidentiality of Alcohol and Drug Abuse Patient Records regulations: The Federal rules restrict any use of the information to criminally investigate or prosecute any alcohol or drug abuse patient.[facility] HospitalIn the event this information is protected by the Federal Confidentiality of Alcohol and Drug Abuse Patient Records regulations: The Federal rules restrict any use of the information to criminally investigate or prosecute any alcohol or drug abuse patient.[facility] HospitalIn the event this information is protected by the Federal Confidentiality of Alcohol and Drug Abuse Patient Records regulations: The Federal rules restrict any use of the information to criminally investigate or prosecute any alcohol or drug abuse patient.[facility] HospitalIn the event this information is protected by the Federal Confidentiality of Alcohol and Drug Abuse Patient Records regulations: The Federal rules restrict any use of the information to criminally investigate or prosecute any alcohol or drug abuse patient.[facility] HospitalIn the event this information is protected by the Federal Confidentiality of Alcohol and Drug Abuse Patient Records regulations: The Federal rules restrict any use of the information to criminally investigate or prosecute any alcohol or drug abuse patient.[facility] HospitalIn the event this information is protected by the Federal Confidentiality of Alcohol and Drug Abuse Patient Records regulations: The Federal rules restrict any use of the information to criminally investigate or prosecute any alcohol or drug abuse patient.[facility] HospitalIn the event this information is protected by the Federal Confidentiality of Alcohol and Drug Abuse Patient Records regulations: The Federal rules restrict any use of the information to criminally investigate or prosecute any alcohol or drug abuse patient.[facility] HospitalIn the event this information is protected by the Federal Confidentiality of Alcohol and Drug Abuse Patient Records regulations: The Federal rules restrict any use of the information to criminally investigate or prosecute any alcohol or drug abuse patient.[facility] HospitalIn the event this information is protected by the Federal Confidentiality of Alcohol and Drug Abuse Patient Records regulations: The Federal rules restrict any use of the information to criminally investigate or prosecute any alcohol or drug abuse patient.[facility] HospitalIn the event this information is protected by the Federal Confidentiality of Alcohol and Drug Abuse Patient Records regulations: The Federal rules restrict any use of the information to criminally investigate or prosecute any alcohol or drug abuse patient.[facility] HospitalIn the event this information is protected by the Federal Confidentiality of Alcohol and Drug Abuse Patient Records regulations: The Federal rules restrict any use of the information to criminally investigate or prosecute any alcohol or drug abuse patient.[facility] HospitalIn the event this information is protected by the Federal Confidentiality of Alcohol and Drug Abuse Patient Records regulations: The Federal rules restrict any use of the information to criminally investigate or prosecute any alcohol or drug abuse patient.[facility] HospitalIn the event this information is protected by the Federal Confidentiality of Alcohol and Drug Abuse Patient Records regulations: The Federal rules restrict any use of the information to criminally investigate or prosecute any alcohol or drug abuse patient.[facility] HospitalIn the event this information is protected by the Federal Confidentiality of Alcohol and Drug Abuse Patient Records regulations: The Federal rules restrict any use of the information to criminally investigate or prosecute any alcohol or drug abuse patient.[facility] Reason for Visit (unrecogniz ed section and content) Reason Comments Refill Request Reason Comments General Physical complaints Reason Comments Video EEG Monitoring Reason Comments Orders EMU admission Reason Comments Outside Lab Results [facility] Reason Comments Orders Reason Comments Follow Up Phone Call Post Discharge F/U attempt made. No answer. Reason Comments Follow Up Seizures Side Effect Management Reason Comments Appointment Cancelled Specialty Diagnoses / Procedures Referred By Contac t [facility] Diagnoses Follow Up Procedures VID SPEC EST Lynda Huff MD [address] [place] [address] Lynda Huff MD [address] [place] [id number] Referral ID Status Reason Start Date Expiration Date Visits Requested Visits Authorized [id number] Pending Review OON/Self Pay Override 09/06/2021 11/22/2021 3 3 Reason Comments Epilepsy Follow Up Specialty Diagnoses / Procedures Referred By Rigoberto berrios Referred To Contact [facility] Diagnoses Follow Up Procedures VID SPEC EST Lynda uHff MD [address] [place] [address] Lynda Huff MD [address] [place] [address] Reason Comments Outside Labs Results [facility] Reason Comments Epilepsy Follow Up Referral ID Status Reason Start Date Expiration Date V isits Requested Visits Authorized [id number] Closed OON/Self Pay Override Patient Cleared - INN Insurance Found 09/06/2021 11/29/2021 3 3 Reason Comments Forms Treatment Plan Reason Comments Forms [facility] medicine cent [facility] Reason Comments Epilepsy Follow Up Specialty Diagnoses / Procedures Referred By Rigoberto berrios Referred To Contact [facility] Diagnoses epilepsy Procedures epilepsy follow up Lynda Huff MD [address] [id number] [place] [address] [place] [address] Referral ID Status Reason Start Date Expiration Date Visits Requested Visits Authorized [id number] Pending Review OON/Self Pay Override 2 03/15/2022 1 1 Reason Comments Forms [facility] nt Reason Comments Follow Up Established Patient Specialty Diagnoses / Procedures Referred By Rigoberto brerios Referred To Contact [facility] Diagnoses Epilepsy (HCC) epilepsy Procedures epilepsy follow up Lynda Huff MD [address] [place] [address] [place] [address] [place] [address] Referral ID Status Reason Start Date Expiration Date V isits Requested Visits Authorized [id number] Closed OON/Self Pay Override Patient Cleared - INN Insurance Found 04/24/2022 03/01/2023 1 1 Reason Comments Medication Authorization [employer] Reason Comments Outside Labs Results [facility] Reason Comments Forms Med one Specialty Diagnoses / Procedures Referred By Contac t Ref[facility] Diagnoses seizures Procedures follow up Self Lynda Huff MD [address] [place] [address] Referral ID Status Reason Start Date Expiration Date Visits Requested Visits Authorized [id number] Incomplete OON/Self Pay Override 01/30/2023 07/29/2023 1 1 Care Teams (unrecognized sec tion and content) Team Status: Active Member Role Status Dates Charles Agudelo , Primary Care Provider Active Team Status: Inactive Member Role Status Dates Charles Agudelo , Primary Care Provider Active CASS Rosario Attending Provider Active 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 Relationship Specialty Start Date End Date Charles Agudelo [address] [place] [address] PCP - General Family Practice 07/09/18 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 Relationship Specialty Start Date End Date Charles Agudelo [address] [place] [address] PCP - General Family Practice 07/09/18 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 [address] [facility] [place] [address] PCP - General Family Medicine 07/09/18 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 [address] [facility] [address] PCP - General Family Medicine 07/09/18 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 [address] [facility] [place] [address] PCP - General Family Medicine 07/09/18 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 [address] [facility] [place] [address] PCP - General Family Medicine 07/09/18 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, DO [address] [facility] [place] [address] PCP - General Family Medicine 07/09/18 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, DO [address] [facility] [address] PCP - General Family Medicine 07/09/18 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, DO [address] [facility] [address] PCP - General Family Medicine 07/09/18 Team Status: Active Member Role Status Dates Yessenia Brannon MD Primary Care Provider Active Team Status: Inactive Member Role Status Dates Víctor Anne MD Attending Provider Active Star t: June 23, 2023 End: June 23, 2023 Yessenia Brannon MD Primary Care Provider Active Start: June 23, 2023 End: June 23, 2023 Team Status: Active Member Role Status Dates Víctor Anne MD Attending Provider Active Star t: June 23, 2023 Yessenia Brannon MD Primary Care Provider Active Start: June 23, 2023 Team Status: Inactive Member Role Status Dates Yessenia Brannon MD Primary Care Provider Active Start: July 02, 2023 End: July 02, 2023 Víctor Anne MD Attending Provider Active Star t: July 02, 2023 End: July 02, 2023 Team Status: Inactive Member Role Status Dates Yessenia Brannon MD Primary Care Provider Active Start: July 07, 2023 End: July 07, 2023 Víctor Anne MD Attending Provider Active Star t: July 07, 2023 End: July 07, 2023 Team Status: Active Member Role Status Dates Yessenia Brannon MD Primary Care Provider Active Start: July 20, 2023 Víctor Anne MD Attending Provider Active Star t: July 20, 2023 Team Status: Inactive Member Role Status Dates Yessenia Brannon MD Primary Care Provider Active Start: August 09, 2023 End: August 09, 2023 Olesya Davis APRN Attending Provider Active S tart: August 09, 2023 End: August 09, 2023 Team Status: Inactive Member Role Status Dates Yessenia Brannon MD Primary Care Provider Active Start: August 19, 2023 End: August 19, 2023 Olesya Davis APRN Attending Provider Active S tart: August 19, 2023 End: August 19, 2023 Team Status: Inactive Member Role Status Nelly Brannon MD Primary Care Provider Active Start: September 23, 2023 End: September 23, 2023 Merlene Venegas APRN Attending Provider Active Start: September 23, 2023 End: September 23, 2023 Team Status: Inactive Member Role Status Nelly Brannon MD Primary Care Provider Active Start: July 20, 2023 End: July 20, 2023 Víctor Anne MD Attending Provider Active Star t: July 20, 2023 End: July 20, 2023 Team Status: Inactive Member Role Status Nelly Brannon MD Primary Care Provider Active Start: August 09, 2023 End: August 09, 2023 Olesya W[place] APRN Attending Provider Active Start: August 09, 2023 End: August 09, 2023 Team Status: Inactive Member Role Status Nelly Brannon MD Primary Care Provider Active Start: August 19, 2023 End: August 19, 2023 Olesya WASHINGTON APRN Attending Provider Active Start: August 19, 2023 End: August 19, 2023 Team Status: Inactive Member Role Status Nelly Brannon MD Primary Care Provider Active Start: October 12, 2023 End: October 12, 2023 Olesya WASHINGTON APRN Attending Provider Active Start: October 12, 2023 End: October 12, 2023 Team Status: Active Member Role Status Nelly Brannon MD Primary Care Provide r, Attending Provider Active Start: October 19, 2023 Goals (unrecognized section and content) Goals may be documented in a n alternate section FOR RECORDS PERTAINING TO PATIENTS WHO ARE OR HAVE BEEN ENROLLED IN A CHEMICAL DEPENDENCY/SUBSTANCEABUSE PROGRAM, SOME INFORMATION MAY BE OMITTED. This clinical summary was aggregated from multiple sources. Caution should be exercised in using it in the provision of clinical care. This summary normalizes information from multiple sources, and as a consequence, information in this document may materially change the coding, format and clinical context of patient data. In addition, data may be omitted in some cases. CLINICAL DECISIONS SHOULD BE BASED ON THE PRIMARY CLINICAL RECORDS. [employer] [facility]. provides no warranty or guarantee of the accuracy or completeness of information in this document.
--- NOTE | 2023-10-29 07:35 | MR_ITS ---
[address] [address] Patient Name: PARAMJIT ROMEO MRN: [id number] date: 1965 Sex: M Assigned Patient Location: MRI Current Patient Location: MRI Accession/Order Number: [id number] Exam Date: 10/29/2023 07:50 Report Date: 10/29/2023 10:00 At the request of: MINNA Luque APLING Procedure: MR thoracic spine wo con EXAM: MR thoracic spine wo con, MR lumbar spine wo con. HISTORY: Closed compression fracture thoracic vertebra COMPARISON: None. TECHNIQUE: MRI of the thoracic spine without contrast. Sequences obtained by standard department protocol. FINDINGS: THORACIC SPINE: No abnormal signal of the thoracic spinal cord. Posterior disc protrusion at T8-T9 contacting the anterior aspect of the cord and causing anterior cord indentation. There is mild spinal canal narrowing at T8-T9. Compression fracture at the T12 vertebral body with mild anterior vertebral body height loss measuring approximately 25%. No significant neural foraminal narrowing of the thoracic spine. There are other mild posterior disc protrusions throughout the thoracic spine. LUMBAR SPINE: Compression fractures at the L2 and L3 vertebral bodies with mild anterior vertebral body height loss. There is acute edema of the superior endplates of L2 and L3. Anterior vertebral body height loss measuring less than 25% at these levels. The conus ends at T12. No abnormal signal of the terminal spinal cord. T12-L1: No spinal canal stenosis or neural foraminal stenosis. L1-L2: Intervertebral disc degeneration. Broad-based posterior disc bulge. Lateral recess narrowing in position to irritate the traversing bilateral L2 nerve roots. Facet joints are normal. L2-L3: Intervertebral disc height is preserved. No spinal canal stenosis. No neural foraminal stenosis. Lateral recess narrowing in position to irritate the traversing bilateral L3 nerve roots. L3-L4: Intervertebral disc degeneration. Broad-based posterior disc bulge. Lateral recess narrowing in position to irritate the traversing bilateral L4 nerve roots. Bilateral mild neural foraminal narrowing. L4-5: Intervertebral disc degeneration. Broad-based posterior disc bulge. Lateral recess narrowing in position to irritate the traversing bilateral L5 nerve roots. Mild facet joint arthropathy. Bilateral moderate neural foraminal narrowing. L5-S1: Intervertebral disc degeneration. Broad-based posterior disc protrusion. No spinal canal stenosis. Bilateral moderate neural foraminal narrowing. MR/MR thoracic spine wo con IMPRESSION: 1. Anterior acute wedge compression fractures at T12, L2 and L3 with mild anterior vertebral body height loss as described. There is acute bone marrow edema at these levels. 2. Other degenerative findings as described. Electronically authenticated by: GILMRA GARCES Date: 10/29/2023 10:00
--- NOTE | 2023-10-29 07:35 | MR_ITS ---
[address] [address] Patient Name: PARAMJIT ROMEO MRN: [id number] date: 1965 Sex: M Assigned Patient Location: MRI Current Patient Location: MRI Accession/Order Number: [id number] Exam Date: 10/29/2023 07:50 Report Date: 10/29/2023 10:00 At the request of: MINNA Luque APLING Procedure: MR lumbar spine wo con EXAM: MR thoracic spine wo con, MR lumbar spine wo con. HISTORY: Closed compression fracture thoracic vertebra COMPARISON: None. TECHNIQUE: MRI of the thoracic spine without contrast. Sequences obtained by standard department protocol. FINDINGS: THORACIC SPINE: No abnormal signal of the thoracic spinal cord. Posterior disc protrusion at T8-T9 contacting the anterior aspect of the cord and causing anterior cord indentation. There is mild spinal canal narrowing at T8-T9. Compression fracture at the T12 vertebral body with mild anterior vertebral body height loss measuring approximately 25%. No significant neural foraminal narrowing of the thoracic spine. There are other mild posterior disc protrusions throughout the thoracic spine. LUMBAR SPINE: Compression fractures at the L2 and L3 vertebral bodies with mild anterior vertebral body height loss. There is acute edema of the superior endplates of L2 and L3. Anterior vertebral body height loss measuring less than 25% at these levels. The conus ends at T12. No abnormal signal of the terminal spinal cord. T12-L1: No spinal canal stenosis or neural foraminal stenosis. L1-L2: Intervertebral disc degeneration. Broad-based posterior disc bulge. Lateral recess narrowing in position to irritate the traversing bilateral L2 nerve roots. Facet joints are normal. L2-L3: Intervertebral disc height is preserved. No spinal canal stenosis. No neural foraminal stenosis. Lateral recess narrowing in position to irritate the traversing bilateral L3 nerve roots. L3-L4: Intervertebral disc degeneration. Broad-based posterior disc bulge. Lateral recess narrowing in position to irritate the traversing bilateral L4 nerve roots. Bilateral mild neural foraminal narrowing. L4-5: Intervertebral disc degeneration. Broad-based posterior disc bulge. Lateral recess narrowing in position to irritate the traversing bilateral L5 nerve roots. Mild facet joint arthropathy. Bilateral moderate neural foraminal narrowing. L5-S1: Intervertebral disc degeneration. Broad-based posterior disc protrusion. No spinal canal stenosis. Bilateral moderate neural foraminal narrowing. MR/MR lumbar spine wo con IMPRESSION: 1. Anterior acute wedge compression fractures at T12, L2 and L3 with mild anterior vertebral body height loss as described. There is acute bone marrow edema at these levels. 2. Other degenerative findings as described. Electronically authenticated by: GILMAR GARCES Date: 10/29/2023 10:00
== END 2023-10-29 07:25 | disposition home or self-care (01) ==
LOC: MRI 07:25
PROVIDERS: PCP Family Medicine; Visit Provider Nurse Practitioner Family
DX: S32.020A Wedge compression fracture of second lumbar vertebra, initial encounter for closed fracture (principal); S22.000A Wedge compression fracture of unspecified thoracic vertebra, initial encounter for closed fracture; M51.36 Other intervertebral disc degeneration, lumbar region
CPT/HCPCS: 72146; 72148

== ENCOUNTER 2024-02-29 12:22 | Outpatient (OUT) | payer OTHER, SELFPAY ==
[2024-02-29 12:52] LABS: Basophils Absolute Auto 0.1 10^3/uL (0.0-0.1); Basophils Percent Auto 0.7 % (0.2-2.0); Eosinophils Absolute Auto 0.2 10^3/uL (0.0-0.7); Eosinophils Percent Auto 1.5 % (0.9-7.0); Hematocrit 42.1 % (42.0-54.0); Hemoglobin 13.9 g/dL (14.0-18.0); Immature Granulocytes Abs Auto 0.06 10^3/uL (0.00-0.03); Immature Granulocytes Pct Auto 0.6 % (0.0-0.5); Lymphocytes Absolute Auto 2.3 10^3/uL (1.2-3.8); Lymphocytes Percent Auto 23.1 % (20.5-60.0); Monocytes Absolute Auto 0.7 10^3/uL (0.3-0.8); Monocytes Percent Auto 7.4 % (1.7-12.0); Neutrophils Absolute Auto 6.6 10^3/uL (1.4-6.5); Neutrophils Percent Auto 66.7 % (43.0-75.0); Platelet Count 288 10^3/uL (150-450); Red Blood Count 4.48 10^6/uL (4.70-6.10); White Blood Count 9.8 10^3/uL (4.0-11.0)
[2024-02-29 12:58] LABS: Alanine Aminotransferase 25 U/L (16-63); Albumin Globulin Ratio 1.2; Albumin Level 4.1 g/dL (3.4-5.0); Alkaline Phosphatase 71 U/L (46-116); Anion Gap 12.1; Aspartate Amino Transferase 23 U/L (15-37); BUN Creatinine Ratio 12.3; Bilirubin Total 0.4 mg/dL (0.2-1.0); Calcium 9.3 mg/dL (8.5-10.1); Carbon Dioxide 30.3 mmol/L (21.0-32.0); Chloride 104 mmol/L (98-107); Chol HDL Ratio 4.4; Cholesterol 207 mg/dL (<=200); Estimated GFR (African America >60 (>=60 mL/min/1.73m^2); Estimated GFR (Non-African Ame >60 (>=60 mL/min/1.73m^2); Globulin 3.5 g/dL; Glucose 83 mg/dL (74-106); HDL Cholesterol 47 mg/dL (40-60); Potassium 4.4 mmol/L (3.5-5.1); Sodium 142 mmol/L (136-145); Total Protein 7.6 g/dL (6.4-8.2); Triglycerides 111 mg/dL (<=150); VLDL CHOLESTEROL 22.2 mg/dL
[2024-02-29 13:29] LABS: Prostate Specific Antigen Scrn 0.33 ng/mL (<=4.00)
== END 2024-02-29 12:23 | disposition home or self-care (01) ==
LOC: LAB 12:24
PROVIDERS: PCP Family Medicine; Visit Provider Family Medicine
DX: Z00.00 Encounter for general adult medical examination without abnormal findings (principal); I10 Essential (primary) hypertension; E78.5 Hyperlipidemia, unspecified; Z12.5 Encounter for screening for malignant neoplasm of prostate
CPT/HCPCS: 36415; 80053; 80061; 85025; G0103